=== PATIENT | male | born 1955 | race Caucasian/White ===

== ENCOUNTER → 2017-10-24 | Outpatient (CLI) | payer BC ==
--- NOTE | 2017-10-25 08:16 | ECHOF ---
Referral Reason:Palpitations R00.2,I34.1 Mitral Valve Prolapse MEASUREMENTS -------- HEIGHT: 172.7 cm WEIGHT: 127.5 kg BP: 170/73 RVIDd: 3.7 cm (< 3.3) IVSd: 1.2 cm (0.6 - 1.1) LVIDd: 4.8 cm (3.9 - 5.3) LVPWd: 1.2 cm (0.6 - 1.1) IVSs: 1.6 cm LVIDs: 3.1 cm LVPWs: 1.6 cm LAESV Index (A-L): 31.59 ml/m Ao Diam: 3.0 cm (2.0 - 3.7) AV Cusp: 1.6 cm (1.5 - 2.6) LA Diam: 4.6 cm (2.7 - 3.8) MV EXCURSION: 15.228 mm (> 18.000) MV EF SLOPE: 100 mm/s (70 - 150) EPSS: 0.5 cm MV E Du: 0.91 m/s MV DecT: 339 ms MV A Du: 1.02 m/s MV E/A Ratio: 0.90 AV maxP.47 mmHg AV meanP.44 mmHg RAP: 5.00 mmHg RVSP: 34.50 mmHg FINDINGS -------- Sinus rhythm. This was a technically adequate study. The left ventricular size is normal. There is mild concentric left ventricular hypertrophy. Overa ll left ventricular systolic function is normal with, an EF between 55 - 60 %. The right ventricle is moderately enlarged. LA is midly dilated 29-33ml/m2. RA appears enlarged. Aortic valve is trileaflet and is mildly thickened. There is no evidence of aortic regurgitation. There is mild aortic stenosis present. Peak/mean gradient across the Aortic Valve is 15.47mmHg / 9 .44mmHg. The mitral valve leaflets are mildly thickened. There is trace to mild mitral regurgitation. Trace tricuspid regurgitation present. There is borderline pulmonary hypertension. The right vent ricular systolic pressure, as measured by Doppler, is 34.50mmHg. Trace/mild (physiologic) pulmonic regurgitation. The aortic root size is normal. Normal inferior vena cava with normal inspiratory collapse consistent with estimated right atrial pre ssure of 5 mmHg. There is no pericardial effusion. CONCLUSIONS -------- 1. Sinus rhythm. 2. This was a technically adequate study. 3. The left ventricular size is normal. 4. There is mild concentric left ventricular hypertrophy. 5. Overall left ventricular systolic function is normal with, an EF between 55 - 60 %. 6. The right ventricle is moderately enlarged. 7. LA is midly dilated 29-33ml/m2. 8. RA appears enlarged. 9. Aortic valve is trileaflet and is mildly thickened. 10. There is mild aortic stenosis present. 11. Peak/mean gradient across the Aortic Valve is 15.47mmHg / 9.44mmHg. 12. The mitral valve leaflets are mildly thickened. 13. There is trace to mild mitral regurgitation. 14. Trace tricuspid regurgitation present. 15. There is borderline pulmonary hypertension. 16. The right ventricular systolic pressure, as measured by Doppler, is 34.50mmHg. 17. Trace/mild (physiologic) pulmonic regurgitation. 18. The aortic root size is normal. 19. There is no pericardial effusion. CORPORATE RECEPTIONIST: Yrn Magana RDCS
== END | disposition home or self-care (01) ==
LOC: RADECHMAIN 14:32
PROVIDERS: ATTEND Internal Medicine
DX: I34.0 Nonrheumatic mitral (valve) insufficiency (principal); I35.0 Nonrheumatic aortic (valve) stenosis; I27.20 Pulmonary hypertension, unspecified; I35.8 Other nonrheumatic aortic valve disorders
CPT/HCPCS: 93306

== ENCOUNTER 2020-05-12 17:00 | Inpatient (IN) | payer MEDICARE, BC ==
--- NOTE | 2020-05-12 17:58 | ED ---
Arrhythmia/Palpitations HPI - General Chief Complaint: Arrhythmia/Palpitations Stated Complaint: A Fib Time Seen by Provider: 05/12/20 17:50 Source: patient, RN notes reviewed Mode of arrival: ambulatory Limitations: no limitations - History of Present Illness Initial Comments: This is a 64-year-old male with no prior history of heart disease and mitral valve prolapsechild who believes he has had episodes ofA. fib over the past several years ago or past 2 days had increased episodes of irregular heartbeat some lightheadedness with the symptoms lasting 10-15 seconds each no chest pain shortness breath or other symptoms. MD Complaint: rapid heart beat, palpitations, irregular heart beat - Related Data Home Medications Medication Instructions Recorded Confirmed Aspirin EC [Ecotrin Low Dose] 81 mg PO BID 05/12/20 05/12/20 Atorvastatin [Lipitor] 20 mg PO DAILY 05/12/20 05/12/20 Fish Oil/Dha/Epa [Fish Oil 1,200 2 cap PO BID 05/12/20 05/12/20 mg Fish Oil] Vitamin D3(Unknown Dose) 1 tab PO DAILY 05/12/20 05/12/20 Allergies Allergy/AdvReac Type Severity Reaction Status Date / Time No Known Allergies Allergy Verified 05/12/20 20:05 Review of Systems ROS Statement: Those systems with pertinent positive or pertinent negative responses have been documented in the HPI. ROS Other: All systems not noted in ROS Statement are negative. Past Medical History Past Medical History: Diabetes Mellitus, Hyperlipidemia History of Any Multi-Drug Resistant Organisms: None Reported Past Surgical History: Bariatric Surgery, Cholecystectomy Past Psychological History: No Psychological Hx Reported Smoking Status: Current every day smoker Past Alcohol Use History: Rare Past Drug Use History: None Reported General Exam - General Exam Comments Initial Comments: is a well-developed well-nourished awake alert oriented 3 male Limitations: no limitations General appearance: alert, in no apparent distress Head exam: Present: atraumatic, normocephalic, normal inspection Eye exam: Present: normal appearance, PERRL, EOMI. Absent: scleral icterus, conjunctival injection, periorbital swelling ENT exam: Present: normal exam, mucous membranes moist Neck exam: Present: normal inspection, full ROM, other (no stridor JVD or bruits). Absent: tenderness, meningismus, lymphadenopathy Respiratory exam: Present: normal lung sounds bilaterally. Absent: respiratory distress, wheezes, rales, rhonchi, stridor Cardiovascular Exam: Present: regular rate, normal rhythm, normal heart sounds. Absent: systolic murmur, diastolic murmur, rubs, gallop, clicks GI/Abdominal exam: Present: soft, normal bowel sounds. Absent: distended, tenderness, guarding, rebound, rigid Extremities exam: Present: normal inspection, full ROM, normal capillary refill. Absent: tenderness, pedal edema, joint swelling, calf tenderness Back exam: Present: normal inspection Neurological exam: Present: alert, oriented X3, CN II-XII intact Psychiatric exam: Present: normal affect, normal mood Skin exam: Present: warm, dry, intact, normal color. 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 He initially didn't want to go home but had agreed to get a repeat troponin. Repeat troponin is mildly elevated above the initial one. He is now agreed to stay he will be admitted with cardiology consultation. He still is asymptomatic with respect to chest pain occasional PACs noted. Case is discussed with Dr. Schmid EKG Findings - EKG Results: EKG: interpreted by ANTWAN, sinus rhythm (Sinus rhythm with PACs rate 80. Interval 190 QRS duration 108 QT since QTC 370/435 and complete right bundle- branch block pattern) Medical Decision Making - Lab Data Result diagrams: 05/12/20 18:21 05/12/20 18:21 Lab Results 05/12/20 05/12/20 05/12/20 Range/Units 18:21 18:21 18:21 WBC 8.0 (3.8-10.6) k/uL RBC 5.50 (4.30-5.90) m/uL Hgb 16.2 (13.0-17.5) gm/dL Hct 48.7 (39.0-53.0) % MCV 88.6 (80.0-100.0) fL MCH 29.5 (25.0-35.0) pg MCHC 33.3 (31.0-37.0) g/dL RDW 12.8 (11.5-15.5) % Plt Count 184 (150-450) k/uL Neutrophils % 60 % Lymphocytes % 28 % Monocytes % 7 % Eosinophils % 2 % Basophils % 1 % Neutrophils # 4.8 (1.3-7.7) k/uL Lymphocytes # 2.3 (1.0-4.8) k/uL Monocytes # 0.5 (0-1.0) k/uL Eosinophils # 0.2 (0-0.7) k/uL Basophils # 0.1 (0-0.2) k/uL PT 9.4 (9.0-12.0) sec INR 0.9 (<1.2) APTT 22.0 (22.0-30.0) sec Sodium 135 L (137-145) mmol/L Potassium 5.3 H (3.5-5.1) mmol/L Chloride 102 (98-107) mmol/L Carbon Dioxide 25 (22-30) mmol/L Anion Gap 8 mmol/L BUN 15 (9-20) mg/dL Creatinine 0.68 (0.66-1.25) mg/dL Est GFR (CKD-EPI)AfAm >90 (>60 ml/min/1.73 sqM) Est GFR (CKD-EPI)NonAf >90 (>60 ml/min/1.73 sqM) Glucose 350 H (74-99) mg/dL Calcium 9.7 (8.4-10.2) mg/dL Magnesium 1.8 (1.6-2.3) mg/dL Total Bilirubin 1.2 (0.2-1.3) mg/dL AST 40 (17-59) U/L ALT 26 (4-49) U/L Alkaline Phosphatase 70 (38-126) U/L Creatine Kinase 92 (55-170) U/L Troponin I (0.000-0.034) ng/mL Total Protein 7.6 (6.3-8.2) g/dL Albumin 4.4 (3.5-5.0) g/dL TSH 3.010 (0.465-4.680) mIU/L 05/12/20 05/12/20 Range/Units 18:21 21:04 WBC (3.8-10.6) k/uL RBC (4.30-5.90) m/uL Hgb (13.0-17.5) gm/dL Hct (39.0-53.0) % MCV (80.0-100.0) fL MCH (25.0-35.0) pg MCHC (31.0-37.0) g/dL RDW (11.5-15.5) % Plt Count (150-450) k/uL Neutrophils % % Lymphocytes % % Monocytes % % Eosinophils % % Basophils % % Neutrophils # (1.3-7.7) k/uL Lymphocytes # (1.0-4.8) k/uL Monocytes # (0-1.0) k/uL Eosinophils # (0-0.7) k/uL Basophils # (0-0.2) k/uL PT (9.0-12.0) sec INR (<1.2) APTT (22.0-30.0) sec Sodium (137-145) mmol/L Potassium (3.5-5.1) mmol/L Chloride (98-107) mmol/L Carbon Dioxide (22-30) mmol/L Anion Gap mmol/L BUN (9-20) mg/dL Creatinine (0.66-1.25) mg/dL Est GFR (CKD-EPI)AfAm (>60 ml/min/1.73 sqM) Est GFR (CKD-EPI)NonAf (>60 ml/min/1.73 sqM) Glucose (74-99) mg/dL Calcium (8.4-10.2) mg/dL Magnesium (1.6-2.3) mg/dL Total Bilirubin (0.2-1.3) mg/dL AST (17-59) U/L ALT (4-49) U/L Alkaline Phosphatase (38-126) U/L Creatine Kinase (55-170) U/L Troponin I 0.041 H* 0.047 H* (0.000-0.034) ng/mL Total Protein (6.3-8.2) g/dL Albumin (3.5-5.0) g/dL TSH (0.465-4.680) mIU/L Disposition Clinical Impression: PAC (premature atrial contraction), Elevated troponin, Hyperglycemia Disposition: ADMITTED IP TO THIS HOSP Condition: Stable Referrals: Nonstaff,Physician [REFERRING] - 1-2 days
[2020-05-12 18:47] LABS: Basophils # (A) 0.1 k/uL (0-0.2); Basophils % (A) 1 %; Eosinophils # (A) 0.2 k/uL (0-0.7); Eosinophils % (A) 2 %; HCT 48.7 % (39.0-53.0); HGB 16.2 gm/dL (13.0-17.5); Lymphocytes # (A) 2.3 k/uL (1.0-4.8); Lymphocytes % (A) 28 %; MCH 29.5 pg (25.0-35.0); MCHC 33.3 g/dL (31.0-37.0); MCV 88.6 fL (80.0-100.0); Mean Platelet Volume 7.3; Monocytes # (A) 0.5 k/uL (0-1.0); Monocytes % (A) 7 %; Neutrophils # (A) 4.8 k/uL (1.3-7.7); Neutrophils % (A) 60 %; Platelet Count 184 k/uL (150-450); RDW 12.8 % (11.5-15.5)
--- NOTE | 2020-05-12 18:54 | XR ---
EXAMINATION TYPE: XR chest 2V DATE OF EXAM: 05/12/2020 COMPARISON: NONE HISTORY: Atrial fibrillation TECHNIQUE: FINDINGS: Heart and mediastinum are within normal limits. Lungs are clear. Costophrenic angles are cl ear. There are chest leads. Bony thorax is intact. IMPRESSION: No active cardiopulmonary disease. Normal heart.
[2020-05-12 18:56] LABS: ALT 26 U/L (4-49); AST 40 U/L (17-59); African American GFR (CKD) >90 (>60 ml/min/1.73 sqM); Albumin 4.4 g/dL (3.5-5.0); Alkaline Phosphatase 70 U/L (38-126); Anion Gap 8 mmol/L; Blood Urea Nitrogen 15 mg/dL (9-20); Calcium 9.7 mg/dL (8.4-10.2); Carbon Dioxide 25 mmol/L (22-30); Chloride 102 mmol/L (98-107); Creatine Kinase 92 U/L (55-170); Glucose 350 mg/dL (74-99); Magnesium 1.8 mg/dL (1.6-2.3); Non-African American GFR(CKD) >90 (>60 ml/min/1.73 sqM); Sodium 135 mmol/L (137-145); Total Bilirubin 1.2 mg/dL (0.2-1.3); Total Protein 7.6 g/dL (6.3-8.2)
[2020-05-12 18:57] LABS: Potassium 5.3 mmol/L (3.5-5.1)
[2020-05-12 19:09] LABS: INR 0.9 (<1.2); Prothrombin Time 9.4 sec (9.0-12.0)
[2020-05-12] MEDS ORDERED: HEPARIN SODIUM,PORCINE 5,000 UNIT/ML 1 ML VIAL IV ONE (22:37)
[2020-05-12] MEDS ORDERED: NITROGLYCERIN SL TABS 0.4 MG TAB SUBLINGUAL PRN (22:37)
[2020-05-12] MEDS ORDERED: HEPARIN SOD,PORK IN 0.45% NACL 25,000 UNIT in 0.45% NACL 1 250ML.BAG IV SCH (22:45)
[2020-05-13 00:03] LABS: Glucose,Whole Blood 249 mg/dL (75-99)
[2020-05-13] MEDS ORDERED: INSULIN ASPART (NovoLOG) 100 UNIT/ML VIAL SQ ONE (00:29)
--- NOTE | 2020-05-13 01:14 | P.HPIM ---
History of Present Illness H&P Date: 05/13/20 Patient is a 64-year-old male with a PMH of type II DM, mitral valve prolapse, and A. fib who presented to the emergency room with complaints of palpitations. The patient notes that he was initially diagnosed with mitral valve prolapse in his teenage years. The patient notes that he saw a pattern illustrator many years ago and was started on aspirin. The patient notes that he has been having palpitati ons for several years, and normally does Valsalva which aborts the episodes. He usually had no symptoms with the palpitations. Over the past 2 days however the patient notes that his palpitations were persistent and he also had associated dizziness and felt as though he was going to faint. Denied chest discomfort, shortness of breath, nausea, vomiting, or diaphoresis. Also denied lower extremity pain, lower extremity swelling cough, fever, chills, abdominal pain. EKG in the emergency room revealed sinus rhythm with APCs at 80 bpm with an incomplete right bundle ivan block. Chest x-ray was unremarkable. Laboratory evaluation revealed a troponin of 0.041 with d-dimer 4.07. Review of Systems Pertinent positives and negatives as discussed in HPI, a complete review of systems was performed and all other systems are negative. Past Medical History Past Medical History: Diabetes Mellitus, Hyperlipidemia History of Any Multi-Drug Resistant Organisms: None Reported Past Surgical History: Bariatric Surgery, Cholecystectomy Past Anesthesia/Blood Transfusion Reactions: No Reported Reaction Past Psychological History: No Psychological Hx Reported Smoking Status: Current every day smoker Past Alcohol Use History: Rare Past Drug Use History: None Reported Additional Drug Use History / Comment(s): pt states he smokes cigars - Past Family History Father Family Medical History: AICD/Pacemaker, Diabetes Mellitus Mother Additional Family Medical History / Comment(s): at age 67 from systemic cancer Medications and Allergies Home Medications Medication Instructions Recorded Confirmed Type Aspirin EC [Ecotrin Low Dose] 81 mg PO BID 05/12/20 05/12/20 History Atorvastatin [Lipitor] 20 mg PO DAILY 05/12/20 05/12/20 History Fish Oil/Dha/Epa [Fish Oil 1,200 2 cap PO BID 05/12/20 05/12/20 History mg Fish Oil] Vitamin D3(Unknown Dose) 1 tab PO DAILY 05/12/20 05/12/20 History Allergies Allergy/AdvReac Type Severity Reaction Status Date / Time No Known Allergies Allergy Verified 05/12/20 20:05 Physical Exam Vitals: Vital Signs Temp Pulse Pulse Resp BP BP Pulse Ox 05/13/20 00:56 67 16 05/13/20 00:55 98.5 F 67 16 140/88 96 05/12/20 23:01 66 18 133/78 96 05/12/20 19:08 76 18 123/78 96 05/12/20 18:18 90 05/12/20 17:14 98.8 F 69 18 168/92 98 Intake and Output 05/12/20 05/12/20 05/13/20 14:59 22:59 06:59 Other: Voiding Method Toilet Weight 120.202 kg 112.037 kg General: non toxic, no distress, appears at stated age, obese Derm: no unusual rashes/lesions no unusual ecchymoses, warm, dry Head: atraumatic, normocephalic, symmetric Eyes: EOMI, no lid lag, anicteric sclera, pupils equal round reactive to light ENT: Nose and ears atraumatic, no thrush, no pharyngeal erythema Neck: No thyromegaly, no cervical lymphadenopathy, trachea midline, supple Mouth: no lip lesion, mucus membranes moist Cardiovascular: S1S2 reg, no murmur, positive posterior tibial pulse bilateral, no edema, capillary refill less than 2 seconds Lungs: CTA bilateral, no rhonchi, no rales , no accessory muscle use Abdominal: soft, nontender to palpation, no guarding, no appreciable organo megaly, normal bowel sounds Ext: no gross muscle atrophy, muscle strength 5 out of 5 in all 4 extremities grossly, no contractures, Neuro: CN II-XI grossly intact, light touch intact all 4 extremities, finger to nose within normal limits, Psych: Alert, oriented, appropriate affect Results CBC & Chem 7: 05/12/20 18:21 05/12/20 18:21 Labs: Abnormal Lab Results - Last 24 Hours (Table) 05/12/20 05/12/20 05/12/20 Range/Units 18:21 18:21 21:04 D-Dimer (<0.60) mg/L FEU Sodium 135 L (137-145) mmol/L Potassium 5.3 H (3.5-5.1) mmol/L Glucose 350 H (74-99) mg/dL POC Glucose (mg/dL) (75-99) mg/dL Troponin I 0.041 H* 0.047 H* (0.000-0.034) ng/mL 05/12/20 05/13/20 Range/Units 23:59 00:02 D-Dimer 4.07 H (<0.60) mg/L FEU Sodium (137-145) mmol/L Potassium (3.5-5.1) mmol/L Glucose (74-99) mg/dL POC Glucose (mg/dL) 249 H (75-99) mg/dL Troponin I (0.000-0.034) ng/mL Thrombosis Risk Factor Assmnt - Choose All That Apply Any of the Below Risk Factors Present?: Yes Each Factor Represents 1 point: Obesity (BMI >25) Other Risk Factors: Yes Each Risk Factor Represents 2 Points: Age 61-74 years Thrombosis Risk Factor Assessment Total Risk Factor Score: 3 Thrombosis Risk Factor Assessment Level: Moderate Risk Assessment and Plan Plan: Paroxysmal A. fib, not on anticoagulation in setting of MVP -Patient was noted to be in A. fib as per the ED staff after he was initially placed on the monitor, though it was not captured on EKG -Continue with heparin infusion -Cardiac monitoring -Cardiology consult -Echocardiogram Elevated troponin, likely demand ischemia secondary to A. fib with RVR -Continue to trend -Cardiology consulted Elevated D-dimer -Obtain CT Angio chest Type II DM with hyperglycemia -Insulin sliding scale blood glucose monitoring -Levemir 10 units daily at bedtime -Check A1c DVT prophylaxis -Heparin infusion The patient is admitted with an anticipated less than 2 midnight stay for evaluation of palpitations, near syncope CODE STATUS: Full Code Discussed with: Patient Anticipated discharge date: in am Anticipated discharge place: home A total of 40 minutes was spent on the care of this complex patient more than 50% of the time was spent in counseling and care coordination.
[2020-05-13] MEDS: INSULIN DETEMIR (LEVEMIR) 100 UNIT/ML SYR SQ SCH ×2 (01:36→20:50)
--- NOTE | 2020-05-13 02:47 | CT ---
EXAM: CT Angiography Chest With Intravenous Contrast CLINICAL HISTORY: Reason for study: Dizziness, palpitations, near syncope, elev d dime TECHNIQUE: Axial computed tomographic angiography images of the chest with intravenous contrast. CTDI is 31.984 mGy and DLP is 987.2 mGy-cm. This CT exam was performed using one or more of the following dose reduction techniques: automated exposure control, adjustment of the mA and/or kV according to patient size, and/or use of iterative reconstruction technique. MIP reconstructed images were created and reviewed. COMPARISON: None available FINDINGS: Pulmonary arteries: Large pulmonary embolic burden with pulmonary emboli in the bilateral main pulmonary arteries. Left-sided pulmonary emboli extend into the left upper and left lower lobe pulmonary arteries and anterior left lower lobe segmental pulmonary artery. Right-sided pulmonary emboli in the right main pulmonary artery extending into the right lower lobe and anterior and lateral segmental pulmonary arteries as well as the right middle lobe and right upper lobe pulmonary arteries. Enlarged main pulmonary artery measuring up to 3.4 cm in diameter. Aorta: No acute findings. No thoracic aortic aneurysm. No aortic dissection. Lungs: No mass. No consolidation. No pulmonary infarct. Pleural space: Unremarkable. No significant effusion. No pneumothorax. Heart: No cardiomegaly. No significant pericardial effusion. Suggestion of right heart strain with RV/LV ratio measuring approximately 1.4. Bones/joints: No acute fracture. No dislocation. Soft tissues: Unremarkable. Lymph nodes: Unremarkable. No enlarged lymph nodes. Upper abdomen: Lap band in place with reservoir in the left periumbilical anterior abdominal wall. IMPRESSION: 1. Large volume pulmonary embolism burden in the bilateral main pulmonary arteries extending into the right upper middle and lower and left upper and lower pulmonary arteries and multiple segmental branches as described above. 2. Enlarged main pulmonary artery measuring up to 3.4 cm in diameter. Suggestion of right heart strain with RV/LV ratio measuring approximately 1.4. No associated pulmonary infarcts. <MYCVCSECTION> Communications: 05/13/20 02:58 Call Doctor Regarding Pulmonary Embolism, called Dr. Schmid on 05/13 02:58 (-04:00)
[2020-05-13] MEDS ORDERED: HEPARIN SODIUM,PORCINE 5,000 UNIT/ML 1 ML VIAL IV PRN (03:06)
[2020-05-13] MEDS ORDERED: HEPARIN SOD,PORK IN 0.45% NACL 25,000 UNIT in 0.45% NACL 1 250ML.BAG IV SCH (03:15)
[2020-05-13 04:32] LABS: Prothrombin Time 10.1 sec (9.0-12.0)
[2020-05-13 04:33] LABS: Partial Thromboplastin Time 35.3 sec (22.0-30.0)
[2020-05-13 05:48] LABS: Cholesterol 171 mg/dL (<200); HDL Cholesterol 35 mg/dL (40-60); LDL Cholesterol,Calculated 86 mg/dL (0-99); Triglycerides 251 mg/dL (<150)
[2020-05-13 06:06] LABS: Glucose,Whole Blood 176 mg/dL (75-99)
[2020-05-13] MEDS: INSULIN ASPART (NovoLOG) 100 UNIT/ML VIAL SQ SCH ×4 (06:28→20:51)
[2020-05-13] MEDS ORDERED: ASPIRIN 325 MG TAB PO SCH (09:00)
[2020-05-13] MEDS ORDERED: NON FORMULARY DRUG (Vitamin D3(Unknown Dose) 1 TAB) PO SCH (09:00)
[2020-05-13] MEDS ORDERED: NON FORMULARY DRUG (Fish Oil/Dha/Epa [Fish Oil 1,200 Mg Fish Oil] 1 EACH Capsule) PO SCH (09:00)
--- NOTE | 2020-05-13 09:37 | US ---
EXAMINATION TYPE: US venous doppler duplex LE DATE OF EXAM: 05/13/2020 7:42 AM COMPARISON: NONE CLINICAL HISTORY: jarad pe. Bilateral PE. On IV heparin. No leg pain or swelling. SIDE PERFORMED: Bilateral TECHNIQUE: The lower extremity deep venous system is examined utilizing real time linear array sonog deshaun with graded compression, doppler sonography and color-flow sonography. VESSELS IMAGED: External Iliac Vein (EIV) Common Femoral Vein Deep Femoral Vein Greater Saphenous Vein * Femoral Vein Popliteal Vein Small Saphenous Vein * Proximal Calf Veins (* superficial vessels) Right Leg: Negative for deep venous thrombosis. There is normal flow, compressibility, and vascular waveforms. Left Leg: POSITIVE for deep venous thrombosis in proximal Popliteal vein to calf veins. IMPRESSION: 1. Deep venous thrombosis of the left lower extremity of the popliteal and calf veins. 2. No deep venous thrombosis of the right lower extremity. A Red level critical message alert has been initiated for Kaylie Schmid MD via the [employer] on 05/13/2020 9:32 AM. This message alert has been sent to Kaylie Schmid MD via the preferences provided by the clinician for the receipt of Radiology Critical Findings. Message ID [id number]. Dr. Veronique Chang discussed findings with Faiza Abraham RN, via the phone on 05/13/2020 at 9:33 AM, and results were acknowledged.
[2020-05-13] MEDS: ATORVASTATIN 20 MG TAB PO SCH (10:08)
--- NOTE | 2020-05-13 10:55 | ECHOF ---
Referral Reason:elevated troponin MEASUREMENTS -------- HEIGHT: 172.7 cm WEIGHT: 112.0 kg BP: 151/72 RVIDd: 3.7 cm (< 3.3) IVSd: 1.3 cm (0.6 - 1.1) LVIDd: 4.2 cm (3.9 - 5.3) LVPWd: 1.3 cm (0.6 - 1.1) IVSs: 1.6 cm LVIDs: 3.3 cm LVPWs: 1.5 cm LA Diam: 4.1 cm (2.7 - 3.8) LAESV Index (A-L): 28.57 ml/m Ao Diam: 2.9 cm (2.0 - 3.7) AV Cusp: 1.7 cm (1.5 - 2.6) LA Diam: 4.5 cm (2.7 - 3.8) MV EXCURSION: 16.790 mm (> 18.000) MV EF SLOPE: 76 mm/s (70 - 150) EPSS: 0.4 cm MV E Du: 0.63 m/s MV DecT: 129 ms MV A Du: 0.80 m/s MV E/A Ratio: 0.79 RAP: 5.00 mmHg RVSP: 36.45 mmHg TAPSE: 27.20 mm FINDINGS -------- Sinus rhythm. This was a technically good study. The left ventricular size is normal. There is mild concentric left ventricular hypertrophy. Overa ll left ventricular systolic function is low-normal with, an EF between 50 - 55 %. The right ventricle is normal in size. The left atrium is mildly dilated. LA is midly dilated 29-33ml/m2. The right atrial size is normal. The aortic valve is trileaflet, and appears structurally normal. No aortic stenosis or regurgitation. Mild mitral regurgitation is present. Mild tricuspid regurgitation present. There is mild pulmonary hypertension. There is no pulmonic regurgitation present. The aortic root size is normal. There is no pericardial effusion. CONCLUSIONS -------- 1. The left ventricular size is normal. 2. There is mild concentric left ventricular hypertrophy. 3. Overall left ventricular systolic function is low-normal with, an EF between 50 - 55 %. 4. The right ventricle is normal in size. 5. The left atrium is mildly dilated. 6. LA is midly dilated 29-33ml/m2. 7. The right atrial size is normal. 8. Mild mitral regurgitation is present. 9. Mild tricuspid regurgitation present. 10. There is mild pulmonary hypertension. 11. There is no pulmonic regurgitation present. 12. The aortic root size is normal. 13. There is no pericardial effusion. INTAKE MANAGER: Angie Finn RDCS
--- NOTE | 2020-05-13 11:05 | P.CRDCN ---
History of Present Illness History of present illness: HISTORY OF PRESENTING ILLNESS This is a pleasant 64-year-old male past medical history significant for dyslipidemia, diabetes mellitus and chronic nicotine dependence. He denies prior history of coronary artery disease and does not follow with a shake maker for any reason. We have been asked to see in consultation for palpitations. He denies any recent travel. No recent injury or sugery. He initially denied to us that he has no family history of PE/DVT however latera he told another provider that his brother had a PE and is decreased. He states for the previous few weeks he's been experiencing intermittent palpitations, dizziness and shortness of breath. 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 On arrival to the hospital an EKG was obtained revealing sinus rhythm with PACs. Telemetry tracings reveal persistent sinus mechanism with episodes of bradycardia noted while sleeping. No significant arrhythmias. D-dimer was elevated prompting a CT angios the chest revealing a large volume pulmonary embolism burden in the bilateral main pulmonary arteries extending into the right upper middle and lower and left upper and lower pulmonary arteries and multiple segmental branches, enlarged main pulmonary artery measuring up to 3.4 cm in diameter, evidence of right heart strain with RV LV ratio measuring 1.4. He was initiated on IV heparin infusion. Bilateral lower extremity venous Doppler also positive for DVT and the proximal popliteal vein of the left leg. Right is negative for DVT. Laboratory data reviewed, CBC unremarkable, d-dimer 4.07, sodium 135, potassium 5.3, creatinine 0.68, magnesium 1.8, troponin 0.041, 0.047 and 0.040, LDL 86 and TSH 3.01. Current daily cardiac medications include aspirin 81 mg twice a day and atorvastatin 20 mg daily. REVIEW OF SYSTEMS At the time of my exam: CONSTITUTIONAL: Denies fever or chills. CARDIOVASCULAR: Denies chest pain, shortness of breath, orthopnea, PND or palpitations. RESPIRATORY: Denies cough. GASTROINTESTINAL: Denies abdominal pain, diarrhea, constipation, nausea or vomiting. MUSCULOSKELETAL: Denies myalgias. NEUROLOGIC: Denies numbness, tingling or weakness. ENDOCRINE: Denies fatigue, weight change, polydipsia or polyurina. GENITOURINARY: Denies burning, hematuria or urgency with micturation. HEMATOLOGIC: Denies history of anemia or bleeding. PHYSICAL EXAMINATION Blood pressure 164/77 heart rate 73 afebrile and maintaining oxygen saturation on room air. CONSTITUTIONAL: No apparent distress. HEENT: Head is normocephalic. Pupils are equal, round. Sclerae anicteric. Mucous membranes of the mouth are moist. No JVD. No carotid bruit. CHEST EXAMINATION: Lungs are clear to auscultation. No chest wall tenderness is noted on palpation or with deep breathing. HEART EXAMINATION: Regular rate and rhythm. S1, S2 heard. No murmurs, gallops or rub. ABDOMEN: Soft, nontender. Positive bowel sounds. EXTREMITIES: 2+ peripheral pulses, no lower extremity edema and no calf tenderness. NEUROLOGIC EXAMINATION: Patient is awake, alert and oriented x3. ASSESSMENT Pulmonary embolism Troponin leak secondary to pulmonary embolism DVT Dyslipidemia Chronic nicotine dependence PLAN Recommend consultation with vascular surgery for EKOS consideration. Obtain STAT 2D echocardiogram to assess for RV stratin as noted on CTA. No documented a-fib. Consider unprovoked PE work-up. Thank you wen for this consultation. Nurse Practitioner note has been reviewed, I agree with a documented findings and plan of care. Patient was seen and examined. Past Medical History Past Medical History: Diabetes Mellitus, Hyperlipidemia History of Any Multi-Drug Resistant Organisms: None Reported Past Surgical History: Bariatric Surgery, Cholecystectomy Past Anesthesia/Blood Transfusion Reactions: No Reported Reaction Past Psychological History: No Psychological Hx Reported Smoking Status: Current every day smoker Past Alcohol Use History: Rare Past Drug Use History: None Reported Additional Drug Use History / Comment(s): pt states he smokes cigars - Past Family History Father Family Medical History: AICD/Pacemaker, Diabetes Mellitus Mother Additional Family Medical History / Comment(s): at age 67 from systemic cancer Medications and Allergies Home Medications Medication Instructions Recorded Confirmed Type Aspirin EC [Ecotrin Low Dose] 81 mg PO BID 05/12/20 05/12/20 History Atorvastatin [Lipitor] 20 mg PO DAILY 05/12/20 05/12/20 History Fish Oil/Dha/Epa [Fish Oil 1,200 2 cap PO BID 05/12/20 05/12/20 History mg Fish Oil] Vitamin D3(Unknown Dose) 1 tab PO DAILY 05/12/20 05/12/20 History Allergies Allergy/AdvReac Type Severity Reaction Status Date / Time No Known Allergies Allergy Verified 05/12/20 20:05 Physical Exam Vitals: Vital Signs Temp Pulse Pulse Resp BP BP Pulse Ox 05/13/20 09:45 98.1 F 73 18 164/77 95 05/13/20 04:00 97.7 F 63 16 151/72 95 05/13/20 00:56 67 16 05/13/20 00:55 98.5 F 67 16 140/88 96 05/12/20 23:01 66 18 133/78 96 05/12/20 19:08 76 18 123/78 96 05/12/20 18:18 90 05/12/20 17:14 98.8 F 69 18 168/92 98 Intake and Output 05/12/20 05/13/20 05/13/20 22:59 06:59 14:59 Intake Total 30.587 Output Total 200 Balance -169.413 Intake: Intake, IV Titration 30.587 Amount Heparin Sod,Pork in 0.45% 30.587 NaCl 25,000 unit In 0.45 % NaCl 1 250ml.bag @ 18 UNITS/KG/HR 20.167 mls/hr IV .[id number] [facility] Rx#: [id number] Output: Urine 200 Other: Voiding Method Toilet Weight 120.202 kg 112.2 kg Results 05/12/20 18:21 05/12/20 18:21 Cardiac Enzymes 05/12/20 05/12/20 05/12/20 Range/Units 18:21 18:21 21:04 AST 40 (17-59) U/L Troponin I 0.041 H* 0.047 H* (0.000-0.034) ng/mL 05/12/20 Range/Units 23:59 AST (17-59) U/L Troponin I 0.040 H* (0.000-0.034) ng/mL Coagulation 05/12/20 05/13/20 Range/Units 18:21 03:56 PT 9.4 10.1 (9.0-12.0) sec APTT 22.0 35.3 H (22.0-30.0) sec Lipids 05/12/20 Range/Units 18:21 Triglycerides 251 H (<150) mg/dL Cholesterol 171 (<200) mg/dL HDL Cholesterol 35 L (40-60) mg/dL CBC 10/28/20 Range/Units 18:21 WBC 8.0 (3.8-10.6) k/uL RBC 5.50 (4.30-5.90) m/uL Hgb 16.2 (13.0-17.5) gm/dL Hct 48.7 (39.0-53.0) % Plt Count 184 (150-450) k/uL Comprehensive Metabolic Panel 05/12/20 Range/Units 18:21 Sodium 135 L (137-145) mmol/L Potassium 5.3 H (3.5-5.1) mmol/L Chloride 102 (98-107) mmol/L Carbon Dioxide 25 (22-30) mmol/L BUN 15 (9-20) mg/dL Creatinine 0.68 (0.66-1.25) mg/dL Glucose 350 H (74-99) mg/dL Calcium 9.7 (8.4-10.2) mg/dL AST 40 (17-59) U/L ALT 26 (4-49) U/L Alkaline Phosphatase 70 (38-126) U/L Total Protein 7.6 (6.3-8.2) g/dL Albumin 4.4 (3.5-5.0) g/dL Current Medications Generic Name Dose Route Start Last Admin Trade Name Freq PRN Reason Stop Dose Admin Apixaban 10 mg 05/13/20 11:00 Apixaban 5 Mg Tab PO 05/19/20 10:48 BID CHUCKY Aspirin 325 mg 05/13/20 09:00 05/13/20 10:08 Aspirin 325 Mg Tab PO 325 mg DAILY CHUCKY Administration Atorvastatin Calcium 20 mg 05/13/20 09:00 05/13/20 10:08 Atorvastatin 20 Mg Tab PO 20 mg DAILY CHUCKY Administration Insulin Aspart 0 unit 05/13/20 07:30 05/13/20 06:28 Insulin Aspart (Novolog) 100 Unit/Ml Vial SQ 3 unit ACHS CHUCKY Administration Protocol Insulin Detemir 10 unit 05/13/20 01:30 05/13/20 01:36 Insulin Detemir (Levemir) 100 Unit/Ml Syr SQ 10 unit HS CHUCKY Administration Nitroglycerin 0.4 mg 05/12/20 22:37 Nitroglycerin Sl Tabs 0.4 Mg Tab SUBLINGUAL Q5M PRN Chest Pain Intake and Output 05/12/20 05/13/20 05/13/20 22:59 06:59 14:59 Intake Total 30.587 Output Total 200 Balance -169.413 Intake: Intake, IV Titration 30.587 Amount Heparin Sod,Pork in 0.45% 30.587 NaCl 25,000 unit In 0.45 % NaCl 1 250ml.bag @ 18 UNITS/KG/HR 20.167 mls/hr IV .[id number] [facility] Rx#: [id number] Output: Urine 200 Other: Voiding Method Toilet Weight 120.202 kg 112.2 kg 05/12/20 18:21 05/12/20 18:21
[2020-05-13 11:35] LABS: Glucose,Whole Blood 180 mg/dL (75-99)
[2020-05-13] MEDS: APIXABAN 5 MG TAB PO SCH ×2 (12:11→20:50)
--- NOTE | 2020-05-13 12:52 | P.GSCN ---
History of Present Illness Consult date: 05/13/20 Reason for Consult: Pulmonary embolism Requesting physician: Marcia Branch History of present illness: This patient is a pleasant 64-year-old male with a past medical history significant for dyslipidemia, diabetes mellitus, obstructive sleep apnea on CPAP, and nicotine dependence. He came into the emergency department yesterday evening with complaints of irregular heartbeat and shortness of breath. He stated that he felt like this has been going on off and on for several years. We've been asked to see in consultation for pulmonary embolism with questionable right heart strain. He denies any recent travel, injury, or sugery. Denies any previous blood clots or known clotting disorder for himself. His family member is at the bedside and stated that the patient's brother has a history of several blood clots in the past, he in 2005. Patient denies any previous workup by hematology for himself or his brother. He states for the previous few weeks he's been experiencing intermittent palpitations, dizziness and shortness of breath. 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 On arrival to the hospital an EKG was obtained revealing sinus rhythm with PACs. D-dimer was elevated prompting a CT angiogram of the chest revealing a large volume pulmonary embolism burden in the bilateral main pulmonary arteries extending into the right upper middle and lower and left upper and lower pulmonary arteries and multiple segmental branches, enlarged main pulmonary artery measuring up to 3.4 cm in diameter, evidence of right heart strain with RV LV ratio measuring 1.4. He was initiated on IV heparin infusion. Bilateral lower extremity venous Doppler performed which was positive for DVT of proximal popliteal vein of the left leg. Right is negative for DVT. Laboratory data reviewed, CBC unremarkable, d-dimer 4.07, sodium 135, potassium 5.3, creatinine 0.68, magnesium 1.8, troponin 0.041, 0.047 and 0.040, LDL 86 and TSH 3.01. He is currently denying any shortness of breath, chest pain, or difficulty breathing. He states he has not been up ambulating therefore unsure if he has any current dyspnea with exertion. He denies pain in bilateral lower extremities, states he did not notice any swelling or redness in the left lower extremity. Review of Systems A 14 point review of systems was completed all pertinent positives and negatives as stated in the HPI. Past Medical History Past Medical History: Diabetes Mellitus, Hyperlipidemia History of Any Multi-Drug Resistant Organisms: None Reported Past Surgical History: Bariatric Surgery, Cholecystectomy Past Anesthesia/Blood Transfusion Reactions: No Reported Reaction Past Psychological History: No Psychological Hx Reported Smoking Status: Current every day smoker Past Alcohol Use History: Rare Past Drug Use History: None Reported Additional Drug Use History / Comment(s): pt states he smokes cigars - Past Family History Father Family Medical History: AICD/Pacemaker, Diabetes Mellitus Mother Additional Family Medical History / Comment(s): at age 67 from systemic cancer Brother(s) Additional Family Medical History / Comment(s): brother had a DVT Medications and Allergies Home Medications Medication Instructions Recorded Confirmed Type Aspirin EC [Ecotrin Low Dose] 81 mg PO BID 05/12/20 05/12/20 History Atorvastatin [Lipitor] 20 mg PO DAILY 05/12/20 05/12/20 History Fish Oil/Dha/Epa [Fish Oil 1,200 2 cap PO BID 05/12/20 05/12/20 History mg Fish Oil] Vitamin D3(Unknown Dose) 1 tab PO DAILY 05/12/20 05/12/20 History Allergies Allergy/AdvReac Type Severity Reaction Status Date / Time No Known Allergies Allergy Verified 05/12/20 20:05 Surgical - Exam Vital Signs Temp Pulse Resp BP Pulse Ox 98.8 F 69 18 168/92 98 05/12/20 17:14 05/12/20 17:14 05/12/20 17:14 05/12/20 17:14 05/12/20 17:14 General appearance: The patient is alert, oriented, in no acute distress. HET: Head is normocephalic and atraumatic. Neck: Supple without lymphadenopathy. Trachea midline. No carotid bruit bi laterally. Heart: S1 S2. Regular rate and rhythm. Lungs: Clear to auscultation, normal chest wall expansion. Respirations unlabored. Abdomen: Soft, nontender, nondistended with bowel sounds. Extremities: Normal skin color and turgor. No cyanosis, rash, ulceration, clubbing, or edema. Radial and pedal pulses are 2/4 bilaterally. Neurological: No focal deficits. Strength and sensation are grossly intact. Results The angiogram of chest showed large volume pulmonary embolism burden in the bilateral main pulmonary arteries extending into the right upper middle and lower and left upper and lower pulmonary arteries and multiple segmental branches as described above. Enlarged main pulmonary artery measuring up to 3.4 cm in diameter. Suggestion of right heart strain with RV/LV ratio measuring approximately 1.4. No associated pulmonary infarcts. Echocardiogram: Shows the left ventricular size is normal, mild concentric left ventricular hypertrophy, overall left ventricular systolic function is low- normal with an EF between 50 and 55%. The right ventricle is normal in size. Left atrium is mildly dilated. LV is mildly dilated 29-33 mL. The right atrial size is normal. Mild mitral regurgitation is present. Mild tricuspid regurgitation present. Mild pulmonary hypertension. No pulmonic regurgitation present. Aortic root site is normal. There is no pericardial effusion. Venous Doppler bilateral lower extremity: Left leg positive for deep venous thrombosis in the proximal popliteal vein to Veins. Right leg is negative for deep venous thrombosis. - Labs 05/12/20 18:21 05/12/20 18:21 Abnormal Lab Results - Last 24 Hours (Table) 05/12/20 05/12/20 05/12/20 Range/Units 18:21 18:21 18:21 APTT (22.0-30.0) sec D-Dimer (<0.60) mg/L FEU Sodium 135 L (137-145) mmol/L Potassium 5.3 H (3.5-5.1) mmol/L Glucose 350 H (74-99) mg/dL POC Glucose (mg/dL) (75-99) mg/dL Troponin I 0.041 H* (0.000-0.034) ng/mL Triglycerides 251 H (<150) mg/dL HDL Cholesterol 35 L (40-60) mg/dL 05/12/20 05/12/20 05/12/20 Range/Units 21:04 23:59 23:59 APTT (22.0-30.0) sec D-Dimer 4.07 H (<0.60) mg/L FEU Sodium (137-145) mmol/L Potassium (3.5-5.1) mmol/L Glucose (74-99) mg/dL POC Glucose (mg/dL) (75-99) mg/dL Troponin I 0.047 H* 0.040 H* (0.000-0.034) ng/mL Triglycerides (<150) mg/dL HDL Cholesterol (40-60) mg/dL 05/13/20 05/13/20 05/13/20 Range/Units 00:02 03:56 06:04 APTT 35.3 H (22.0-30.0) sec D-Dimer (<0.60) mg/L FEU Sodium (137-145) mmol/L Potassium (3.5-5.1) mmol/L Glucose (74-99) mg/dL POC Glucose (mg/dL) 249 H 176 H (75-99) mg/dL Troponin I (0.000-0.034) ng/mL Triglycerides (<150) mg/dL HDL Cholesterol (40-60) mg/dL Diabetes panel 05/12/20 05/12/20 Range/Units 18:21 18:21 Sodium 135 L (137-145) mmol/L Potassium 5.3 H (3.5-5.1) mmol/L Chloride 102 (98-107) mmol/L Carbon Dioxide 25 (22-30) mmol/L BUN 15 (9-20) mg/dL Creatinine 0.68 (0.66-1.25) mg/dL Glucose 350 H (74-99) mg/dL Calcium 9.7 (8.4-10.2) mg/dL AST 40 (17-59) U/L ALT 26 (4-49) U/L Alkaline Phosphatase 70 (38-126) U/L Total Protein 7.6 (6.3-8.2) g/dL Albumin 4.4 (3.5-5.0) g/dL Triglycerides 251 H (<150) mg/dL HDL Cholesterol 35 L (40-60) mg/dL Thyroid panel 05/12/20 Range/Units 18:21 TSH 3.010 (0.465-4.680) mIU/L Calcium panel 05/12/20 Range/Units 18:21 Calcium 9.7 (8.4-10.2) mg/dL Albumin 4.4 (3.5-5.0) g/dL Pituitary panel 05/12/20 Range/Units 18:21 Sodium 135 L (137-145) mmol/L Potassium 5.3 H (3.5-5.1) mmol/L Chloride 102 (98-107) mmol/L Carbon Dioxide 25 (22-30) mmol/L BUN 15 (9-20) mg/dL Creatinine 0.68 (0.66-1.25) mg/dL Glucose 350 H (74-99) mg/dL Calcium 9.7 (8.4-10.2) mg/dL TSH 3.010 (0.465-4.680) mIU/L Adrenal panel 05/12/20 Range/Units 18:21 Sodium 135 L (137-145) mmol/L Potassium 5.3 H (3.5-5.1) mmol/L Chloride 102 (98-107) mmol/L Carbon Dioxide 25 (22-30) mmol/L BUN 15 (9-20) mg/dL Creatinine 0.68 (0.66-1.25) mg/dL Glucose 350 H (74-99) mg/dL Calcium 9.7 (8.4-10.2) mg/dL Total Bilirubin 1.2 (0.2-1.3) mg/dL AST 40 (17-59) U/L ALT 26 (4-49) U/L Alkaline Phosphatase 70 (38-126) U/L Total Protein 7.6 (6.3-8.2) g/dL Albumin 4.4 (3.5-5.0) g/dL Assessment and Plan Assessment: 1. Pulmonary embolism without evidence of right heart strain per echocardiogram results 2. Deep vein thrombosis of left lower extremity 3. Dyslipidemia 4. Hypertension 5. Obstructive sleep apnea 6. Obesity 7. Nicotine dependence Plan: The patient was seen and examined with Dr. Vila. Dr. Vila reviewed the CT angiogram and echocardiogram, echocardiogram does not show any evidence of right heart strain therefore no indication for EKOS at this time. Recommend consult either inpatient or outpatient for hematology for a family history of blood clots, further workup. Will start on Eliquis 10 mg by mouth twice a day for one week then decrease to 5mg po BID and discontinue heparin drip. From a vascular surgical standpoint patient may be discharged home if cleared by cardiology and medicine team. Thank you for this consultation and allowing us to take part in the plan of care of your patient during his hospital stay. The impression and plan of care has been dictated as directed. Dr. Vila I performed a history and examination of this patient, discussed the same with the dictator. I agree with the dictator's note ,documented as a scribe. Any additional findings or plans will be noted.
--- NOTE | 2020-05-13 14:14 | P.CNPUL ---
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, who developed some difficulties with palpitations and he felt his heart was racing. note that the patient did not have any chest pain. he did not have any pleurisy. he did not have any swelling or pain in the scalp on his lower extremity. the patient typically gets this type of symptoms and according to him he performs valsalva maneuver and the symptoms go away. however, during this time, the symptoms will go away and then recurred and for that was concerning came into the hospital. d-dimer was slightly elevated. he was given a ct angios and that showed bilateral pulmonary embolism and the patient was found to have large volume pulmonary embolism burden and bilateral main pulmonary arteries extending to the right upper lobe and the right lower lobe and the left upper lobe and left lower lobe pulmonary arteries. there was also some enlargement in the main pulmonary artery measuring 2.4 cm in size and there was suggestion of a right ventricular strain pattern with rv/lv ratio measuring around 1.4. no associated pulmonary infarcts. the doppler of the lower extremity showed a positive dvt in the right proximal popliteal vein. the echo of the heart showed a normal rv, moderate pulmonary hypertension, levaquin 2 ejection fraction being in the order of 50-55%. the patient is hemodynamically stable. the patient is currently on room air oxygen with a pulse is a 96% and there was no oxygen desaturation noted. he denies having any palpitation at this point in time. nevertheless, in the emergency department, the patient had a run of atrial fibrillation according to the medical staff. his current ekg showing a sinus rhythm. the patient is currently on iv heparin. he will be transitioned to eliquis 10 mg by mouth twice a day. he has been quite active. no sedentary lifestyle. no 68 recent orthopedic surgeries. no recent surgeries. no trauma. no hormonal intake. he does have his brother had a dvt and he from complications of diabetes mellitus. no other family members with clotting disorders. Review of Systems Constitutional: Reports as per HPI Eyes: denies as per HPI, denies blurred vision, denies bulging eye, denies decreased vision, denies diplopia, denies discharge, denies dry eye, denies irritation, denies itching, denies pain, denies photophobia, denies loss of peripheral vision, denies loss of vision, denies tunnel vision/blind spots Ears: deny: decreased hearing, ear discharge, earache, tinnitus Ears, nose, mouth and throat: Denies headache, Denies sore throat Breasts: absent: as per HPI, gynecomastia Cardiovascular: Reports irregular heart beat, Reports palpitations Respiratory: Reports as per HPI Gastrointestinal: Reports as per HPI Genitourinary: Reports as per HPI Musculoskeletal: Reports as per HPI Musculoskeletal: absent: ankle pain, ankle stiffness, ankle swelling Integumentary: Reports as per HPI Neurological: Reports as per HPI Psychiatric: Reports as per HPI Endocrine: Reports as per HPI Hematologic/Lymphatic: Reports as per HPI Allergic/Immunologic: Reports as per HPI Past Medical History Past Medical History: Diabetes Mellitus, Hyperlipidemia, Supraventricular Tachycardia (SVT) History of Any Multi-Drug Resistant Organisms: None Reported Past Surgical History: Bariatric Surgery, Cholecystectomy Past Anesthesia/Blood Transfusion Reactions: No Reported Reaction Past Psychological History: No Psychological Hx Reported Smoking Status: Current every day smoker Past Alcohol Use History: Rare Past Drug Use History: None Reported Additional Drug Use History / Comment(s): pt states he smokes cigars - Past Family History Father Family Medical History: AICD/Pacemaker, Diabetes Mellitus Mother Additional Family Medical History / Comment(s): at age 67 from systemic cancer Brother(s) Additional Family Medical History / Comment(s): brother had a DVT Medications and Allergies Home Medications Medication Instructions Recorded Confirmed Type Aspirin EC [Ecotrin Low Dose] 81 mg PO BID 05/12/20 05/12/20 History Atorvastatin [Lipitor] 20 mg PO DAILY 05/12/20 05/12/20 History Fish Oil/Dha/Epa [Fish Oil 1,200 2 cap PO BID 05/12/20 05/12/20 History mg Fish Oil] Vitamin D3(Unknown Dose) 1 tab PO DAILY 05/12/20 05/12/20 History Allergies Allergy/AdvReac Type Severity Reaction Status Date / Time No Known Allergies Allergy Verified 05/12/20 20:05 Physical Exam Vitals: Vital Signs Temp Pulse Pulse Resp BP BP Pulse Ox 05/13/20 09:45 98.1 F 73 18 164/77 95 05/13/20 04:00 97.7 F 63 16 151/72 95 05/13/20 00:56 67 16 05/13/20 00:55 98.5 F 67 16 140/88 96 05/12/20 23:01 66 18 133/78 96 05/12/20 19:08 76 18 123/78 96 05/12/20 18:18 90 05/12/20 17:14 98.8 F 69 18 168/92 98 Intake and Output 05/12/20 05/13/20 05/13/20 22:59 06:59 14:59 Intake Total 30.587 Output Total 200 Balance -169.413 Intake: Intake, IV Titration 30.587 Amount Heparin Sod,Pork in 0.45% 30.587 NaCl 25,000 unit In 0.45 % NaCl 1 250ml.bag @ 18 UNITS/KG/HR 20.167 mls/hr IV .[id number] [facility] Rx#: [id number] Output: Urine 200 Other: Voiding Method Toilet Weight 120.202 kg 112.2 kg The patient appeared well nourished and normally developed. Vital signs as documented. Head exam is unremarkable. No scleral icterus or corneal arcus noted. Neck is without jugular venous distension, thyromegaly, or carotid bruits. Carotid upstrokes are brisk bilaterally. Lungs are clear to auscultation and percussion. Cardiac exam reveals the PMI to be normally sized and situated. Rhythm is regular. First and second heart sounds normal. No murmurs, rubs or gallops. Abdominal exam reveals normal bowel sounds, no masses, no organomegaly and no aortic enlargement. Extremities are nonedematous and both femoral and pedal pulses are normal.Examination of the skin revealed no evidence of significant rashes, suspicious appearing nevi or other concerning lesions.Neurologically, the patient is awake and alert and the patient does not have any focal neurological deficit. Cranial nerves are essentially intact. Results - Laboratory Findings CBC and BMP: 05/12/20 18:21 05/12/20 18:21 PT/INR, D-dimer PT 10.1 sec (9.0-12.0) 05/13/20 03:56 INR 1.0 (<1.2) 10/29/20 03:56 D-Dimer 4.07 mg/L FEU (<0.60) H 05/12/20 23:59 Abnormal lab findings: Abnormal Labs 05/12/20 05/12/20 05/12/20 18:21 18:21 18:21 APTT D-Dimer Sodium 135 L Potassium 5.3 H Glucose 350 H POC Glucose (mg/dL) Troponin I 0.041 H* Triglycerides 251 H HDL Cholesterol 35 L 05/12/20 05/12/20 05/12/20 21:04 23:59 23:59 APTT D-Dimer 4.07 H Sodium Potassium Glucose POC Glucose (mg/dL) Troponin I 0.047 H* 0.040 H* Triglycerides HDL Cholesterol 05/13/20 05/13/20 05/13/20 00:02 03:56 06:04 APTT 35.3 H D-Dimer Sodium Potassium Glucose POC Glucose (mg/dL) 249 H 176 H Troponin I Triglycerides HDL Cholesterol - Diagnostic Findings Chest x-ray: image reviewed CT scan - chest: image reviewed U/S of Legs: image reviewed Assessment and Plan Plan: 1 acute bilateral pulmonary embolism with a right lower extremity DVT involving the popliteal vein, unprovoked 2 palpitation, likely on the basis of paroxysmal atrial fibrillation 3 diabetes mellitus 4 hyperlipidemia 5 family history of a DVT 6 chronic smoker Plan The patient can be transitioned to long-term articulation with Eliquis. I suspect that the patient will need long-term and coagulation special that the patient is having some palpitations that could be potentially related to approximately atrial fibrillation. Recommend an outpatient night monitor to rule out PAF. He is DVT and pulmonary embolism is quite unprovoked and the patient will benefit from long-term and to coagulation No indication for Ekos as the patient is currently on room air, he was dynami evie stable, no sinus tachycardia and the patient's echocardiogram at shown no significant RV dysfunction or pulmonary hypertension We'll continue to follow
--- NOTE | 2020-05-13 15:08 | P.PN ---
Progress Note - Text Progress Note Date: 05/13/20 Patient was seen. Please refer to H&P for full documentation. Patient currently reports no symptoms. He denies any chest pain, shortness of breath, palpitations, dizziness. He is in no acute distress. He is being anticoagulated with Eliquis 10 mg PO BID. No atrial fibrillation seen on Telemetry. Patient would benefit from event monitor at home. Plans to observe overnight. Hopeful discharge tomorrow if patient continues to show improvement.
[2020-05-13 16:47] LABS: Glucose,Whole Blood 207 mg/dL (75-99)
--- NOTE | 2020-05-13 16:59 | P.CONS ---
History of Present Illness - Reason for Consult Consult date: 05/13/20 Bilateral PE, LLE DVT Requesting physician: Kaylie Schmid - Chief Complaint afib, SOB on exertion - History of Present Illness Mr. Avendaño is a very pleasant 64 year old male pt who we have been asked to see re: LLE DVT and bilateral PE. Pt states for about 2 days he began noticing more frequent episodes of a-fib-6-8 in 30 min, he typically will only experience it once in a great while, resolved with valsalva maneuver. This time though, the symptoms persisted, he began having associated symptoms of chst discomfort, SOB on exertion, dizziness and weakness. He came to ER, CTA and doppler showing bilateral PE, LLE DVT, elevated trop and RV heart strain. He f eels better since admit. Denies bleeding. He denied long trips, injuries, decrease in activity, surgery, steroid use, hormone use, he has never had a clot, his brother had a blood clot, in his 50's 2/2 uncontrolled DM. His mother had and unknown cancer, dies within 3 weeks of diagnosis. He states he is very active. Has had colonoscopy and prostate exams. Remote history of smoking, occasional cigar. Review of Systems 14 point ROS is negative except as stated in HPI Past Medical History Past Medical History: Diabetes Mellitus, Hyperlipidemia, Supraventricular Tachycardia (SVT) History of Any Multi-Drug Resistant Organisms: None Reported Past Surgical History: Bariatric Surgery, Cholecystectomy Past Anesthesia/Blood Transfusion Reactions: No Reported Reaction Past Psychological History: No Psychological Hx Reported Smoking Status: Current every day smoker Past Alcohol Use History: Rare Past Drug Use History: None Reported Additional Drug Use History / Comment(s): pt states he smokes cigars - Past Family History Father Family Medical History: AICD/Pacemaker, Diabetes Mellitus Mother Additional Family Medical History / Comment(s): at age 67 from systemic cancer Brother(s) Additional Family Medical History / Comment(s): brother had a DVT Medications and Allergies Home Medications Medication Instructions Recorded Confirmed Type Aspirin EC [Ecotrin Low Dose] 81 mg PO BID 05/12/20 05/12/20 History Atorvastatin [Lipitor] 20 mg PO DAILY 05/12/20 05/12/20 History Fish Oil/Dha/Epa [Fish Oil 1,200 2 cap PO BID 05/12/20 05/12/20 History mg Fish Oil] Vitamin D3(Unknown Dose) 1 tab PO DAILY 05/12/20 05/12/20 History Allergies Allergy/AdvReac Type Severity Reaction Status Date / Time No Known Allergies Allergy Verified 05/12/20 20:05 Physical Exam Vitals: Vital Signs Temp Pulse Pulse Resp BP BP Pulse Ox 05/13/20 12:19 98.5 F 60 18 156/75 96 05/13/20 09:45 98.1 F 73 18 164/77 95 05/13/20 04:00 97.7 F 63 16 151/72 95 05/13/20 00:56 67 16 05/13/20 00:55 98.5 F 67 16 140/88 96 05/12/20 23:01 66 18 133/78 96 05/12/20 19:08 76 18 123/78 96 05/12/20 18:18 90 05/12/20 17:14 98.8 F 69 18 168/92 98 Intake and Output 05/13/20 05/13/20 05/13/20 06:59 14:59 22:59 Intake Total 30.587 250 Output Total 200 150 Balance -169.413 100 Intake: Intake, IV Titration 30.587 Amount Heparin Sod,Pork in 0.45% 30.587 NaCl 25,000 unit In 0.45 % NaCl 1 250ml.bag @ 18 UNITS/KG/HR 20.167 mls/hr IV .[id number] [facility] Rx#: [id number] Oral 250 Output: Urine 200 150 Other: Voiding Method Toilet # Voids 1 Weight 112.2 kg - Constitutional General appearance: cooperative, no acute distress, obese - EENT Eyes: anicteric sclerae, EOMI ENT: hearing grossly normal - Neck Neck: no lymphadenopathy - Respiratory Respiratory: bilateral: CTA - Cardiovascular Rhythm: regular Heart sounds: normal: S1, S2 Abnormal Heart Sounds: systolic murmur (very soft) leg Peripheral Edema: bilateral: None - Gastrointestinal General gastrointestinal: no absent bowel sounds, no decreased bowel sounds, no distended, no hepatomegaly, no hyperactive bowel sounds, normal bowel sounds, no organomegaly, no rigid, no scaphoid, soft, no splenomegaly, no tenderness, no umbilical hernia, no ventral hernia - Integumentary Integumentary: normal - Neurologic Neurologic: CNII-XII intact - Musculoskeletal Musculoskeletal: strength equal bilaterally - Psychiatric Psychiatric: A&O x's 3, appropriate affect, intact judgment & insight Results CBC & Chem 7: 05/12/20 18:21 05/12/20 18:21 Labs: Abnormal Lab Results - Last 24 Hours (Table) 05/12/20 05/12/20 05/12/20 Range/Units 18:21 18:21 18:21 APTT (22.0-30.0) sec D-Dimer (<0.60) mg/L FEU Sodium 135 L (137-145) mmol/L Potassium 5.3 H (3.5-5.1) mmol/L Glucose 350 H (74-99) mg/dL POC Glucose (mg/dL) (75-99) mg/dL Troponin I 0.041 H* (0.000-0.034) ng/mL Triglycerides 251 H (<150) mg/dL HDL Cholesterol 35 L (40-60) mg/dL 05/12/20 05/12/20 05/12/20 Range/Units 21:04 23:59 23:59 APTT (22.0-30.0) sec D-Dimer 4.07 H (<0.60) mg/L FEU Sodium (137-145) mmol/L Potassium (3.5-5.1) mmol/L Glucose (74-99) mg/dL POC Glucose (mg/dL) (75-99) mg/dL Troponin I 0.047 H* 0.040 H* (0.000-0.034) ng/mL Triglycerides (<150) mg/dL HDL Cholesterol (40-60) mg/dL 05/13/20 05/13/20 05/13/20 Range/Units 00:02 03:56 06:04 APTT 35.3 H (22.0-30.0) sec D-Dimer (<0.60) mg/L FEU Sodium (137-145) mmol/L Potassium (3.5-5.1) mmol/L Glucose (74-99) mg/dL POC Glucose (mg/dL) 249 H 176 H (75-99) mg/dL Troponin I (0.000-0.034) ng/mL Triglycerides (<150) mg/dL HDL Cholesterol (40-60) mg/dL 05/13/20 05/13/20 Range/Units 11:34 11:36 APTT 127.4 H* (22.0-30.0) sec D-Dimer (<0.60) mg/L FEU Sodium (137-145) mmol/L Potassium (3.5-5.1) mmol/L Glucose (74-99) mg/dL POC Glucose (mg/dL) 180 H (75-99) mg/dL Troponin I (0.000-0.034) ng/mL Triglycerides (<150) mg/dL HDL Cholesterol (40-60) mg/dL CT scan - chest: report reviewed Venous US: report reviewed Assessment and Plan (1) Left leg DVT Current Visit: Yes Status: Acute Priority: High Code(s): I82.402 - ACUTE EMBOLISM AND THOMBOS UNSP DEEP VEINS OF L LOW EXTREM SNOMED Code(s): 102998348 (2) Pulmonary emboli Current Visit: Yes Status: Acute Priority: High Code(s): I26.99 - OTHER PULMONARY EMBOLISM WITHOUT ACUTE COR PULMONALE SNOMED Code(s): 32641677 Plan: Unprovoked LLE DVT, bilateral PE with RV heart strain. Cont heparin drip for 48 hours before transitioning to oral anticoagulation because of extent and symptoms from blood clots. Will send DOAC Rx to [facility] for copay verification. Recommend lifelong anticoagulation for unprovoked, extensive DVT/PE. Recommend hypercoaguable work up as an outpatient We reviewed bleeding precautions on DOAC Recommended to pt that he get back with Dr. Busch in regards to his DMII Pt verbalized understanding and is in agreement with plan
[2020-05-13 17:40] LABS: Hemoglobin A1C 12.5 % (4.0-6.0)
[2020-05-13 20:36] LABS: Glucose,Whole Blood 241 mg/dL (75-99)
[2020-05-14] MEDS ORDERED: ACETAMINOPHEN TAB 325 MG TAB PO PRN (04:03)
[2020-05-14 06:25] LABS: Glucose,Whole Blood 178 mg/dL (75-99)
[2020-05-14] MEDS: INSULIN ASPART (NovoLOG) 100 UNIT/ML VIAL SQ SCH ×2 (06:27→11:59)
[2020-05-14 07:47] LABS: Basophils % (A) 0 %; Eosinophils # (A) 0.2 k/uL (0-0.7); Eosinophils % (A) 3 %; HCT 43.4 % (39.0-53.0); HGB 14.2 gm/dL (13.0-17.5); Lymphocytes % (A) 32 %; MCH 29.5 pg (25.0-35.0); MCHC 32.7 g/dL (31.0-37.0); MCV 90.2 fL (80.0-100.0); Monocytes # (A) 0.4 k/uL (0-1.0); Monocytes % (A) 6 %; Neutrophils # (A) 3.6 k/uL (1.3-7.7); Neutrophils % (A) 58 %; Platelet Count 160 k/uL (150-450); RBC 4.81 m/uL (4.30-5.90); WBC 6.3 k/uL (3.8-10.6)
[2020-05-14 08:02] LABS: African American GFR (CKD) >90 (>60 ml/min/1.73 sqM); Anion Gap 6 mmol/L; Blood Urea Nitrogen 21 mg/dL (9-20); Carbon Dioxide 28 mmol/L (22-30); Chloride 103 mmol/L (98-107); Glucose 186 mg/dL (74-99); Non-African American GFR(CKD) >90 (>60 ml/min/1.73 sqM); Potassium 4.1 mmol/L (3.5-5.1); Sodium 137 mmol/L (137-145)
[2020-05-14] MEDS: ATORVASTATIN 20 MG TAB PO SCH (08:51)
[2020-05-14] MEDS: APIXABAN 5 MG TAB PO SCH (08:51)
[2020-05-14 08:58] VITALS: RESP 18
[2020-05-14] MEDS ORDERED: ASPIRIN 81 MG PO SCH (09:00)
--- NOTE | 2020-05-14 11:02 | P.PN ---
Subjective Patient looks very comfortable no chest discomfort no shortness of breath no dizziness lightheadedness or palpitations. He has pulmonary embolism and is now has been switched to ELIQUIS Blood pressure 137/60 430 406 9 mmHg pulse rate in the 50s and 60s afebrile 90F Breath sounds are clear no rhonchi no crackles Normal heart sounds normal S1 normal S2 No murmurs or gallops or rub Abdomen soft Extremities warm Impression paroxysmal atrial fibrillation as a presentation of pulmonary embolism with only mild shortness of breath Family being treated for pulmonary embolism His brother has had a clotting disorder Patient also has DVT He is diabetic type II No hypertension From a cardiac standpoint, continue atorvastatin baby aspirin continue ELIQUIS Follow-up Dr. Stuart within 3-4 weeks upon discharge Objective - Vital Signs Vital signs: Vital Signs Temp 97.2 F L 05/14/20 08:55 Pulse 63 05/14/20 08:55 Resp 18 05/14/20 08:55 BP 137/64 05/14/20 08:55 Pulse Ox 95 05/14/20 08:55 Intake & Output 05/13/20 05/14/20 05/14/20 18:59 06:59 18:59 Intake Total 490 300 Output Total 150 Balance 340 300 Weight 111.4 kg Intake: Oral 490 300 Output: Urine 150 Other: Voiding Method Toilet # Voids 1 1 - Labs CBC & Chem 7: 05/14/20 07:21 05/14/20 07:21 Labs: Abnormal Lab Results - Last 24 Hours (Table) 05/12/20 05/13/20 05/13/20 Range/Units 18:21 11:34 11:36 APTT 127.4 H* (22.0-30.0) sec BUN (9-20) mg/dL Glucose (74-99) mg/dL POC Glucose (mg/dL) 180 H (75-99) mg/dL Hemoglobin A1c 12.5 H (4.0-6.0) % 05/13/20 05/13/20 05/14/20 Range/Units 16:45 20:34 06:20 APTT (22.0-30.0) sec BUN (9-20) mg/dL Glucose (74-99) mg/dL POC Glucose (mg/dL) 207 H 241 H 178 H (75-99) mg/dL Hemoglobin A1c (4.0-6.0) % 05/14/20 Range/Units 07:21 APTT (22.0-30.0) sec BUN 21 H (9-20) mg/dL Glucose 186 H (74-99) mg/dL POC Glucose (mg/dL) (75-99) mg/dL Hemoglobin A1c (4.0-6.0) %
[2020-05-14 11:03] VITALS: BMI 37.3
[2020-05-14 11:54] LABS: Glucose,Whole Blood 221 mg/dL (75-99)
[2020-05-14 12:05] VITALS: BP 134/70; PULSE 68; TEMP 98.1
--- NOTE | 2020-05-14 12:15 | P.PN ---
Subjective Progress Note Date: 05/14/20 Principal diagnosis: Bilateral pulmonary embolism, left lower extremity deep vein thrombosis Patient was seen and examined at the bedside with Dr. Vila. The patient denies any shortness of breath or chest pain. He denies any difficulty with breathing or pain with inspiration. He denies any pain in bilateral lower extremities. He has been up and ambulating without difficulty. He was transitioned yesterday from his heparin drip to Eliquis. Insurance coverage was verified. Objective - Vital Signs Vital signs: Vital Signs Temp 97.2 F L 05/14/20 08:55 Pulse 63 05/14/20 08:55 Resp 18 05/14/20 08:55 BP 137/64 05/14/20 08:55 Pulse Ox 95 05/14/20 08:55 Intake & Output 05/13/20 05/14/20 05/14/20 18:59 06:59 18:59 Intake Total 490 300 Output Total 150 Balance 340 300 Weight 111.4 kg Intake: Oral 490 300 Output: Urine 150 Other: Voiding Method Toilet # Voids 1 1 - Exam General appearance: The patient is alert, oriented, in no acute distress. HET: Head is normocephalic and atraumatic. Neck: Supple without lymphadenopathy. Trachea midline. Heart: S1 S2. Regular rate and rhythm. Lungs: There are to auscultation Abdomen: Soft, nontender, nondistended with bowel sounds. Extremities: Normal skin color and turgor. No cyanosis, rash, ulceration, clubbing, or edema. Radial and pedal pulses are 2/4 bilaterally. Neurological: No focal deficits. Strength and sensation are grossly intact. - Labs CBC & Chem 7: 05/14/20 07:21 05/14/20 07:21 Labs: Abnormal Lab Results - Last 24 Hours (Table) 05/12/20 05/13/20 05/13/20 Range/Units 18:21 11:34 11:36 APTT 127.4 H* (22.0-30.0) sec BUN (9-20) mg/dL Glucose (74-99) mg/dL POC Glucose (mg/dL) 180 H (75-99) mg/dL Hemoglobin A1c 12.5 H (4.0-6.0) % 05/13/20 05/13/20 05/14/20 Range/Units 16:45 20:34 06:20 APTT (22.0-30.0) sec BUN (9-20) mg/dL Glucose (74-99) mg/dL POC Glucose (mg/dL) 207 H 241 H 178 H (75-99) mg/dL Hemoglobin A1c (4.0-6.0) % 05/14/20 Range/Units 07:21 APTT (22.0-30.0) sec BUN 21 H (9-20) mg/dL Glucose 186 H (74-99) mg/dL POC Glucose (mg/dL) (75-99) mg/dL Hemoglobin A1c (4.0-6.0) % Assessment and Plan Assessment: 1. Pulmonary embolism without evidence of right heart strain per echocardiogram results 2. Deep vein thrombosis of left lower extremity 3. Dyslipidemia 4. Hypertension 5. Obstructive sleep apnea 6. Obesity 7. Nicotine dependence Plan: Continue with Eliquis 10 mg by mouth twice a day 7 days then change to 5 mg by mouth twice a day. Discussed with patient should follow-up with hematology. From a vascular surgical standpoint patient may be discharged home if cleared by cardiology and medicine team. Also discuss with patient there is no need for outpatient follow-up with vascular surgery, can follow-up as needed. The impression and plan of care has been dictated as directed. Dr. Vila I performed a history and examination of this patient, discussed the same with the dictator. I agree with the dictator's note ,documented as a scribe. Any additional findings or plans will be noted.
--- NOTE | 2020-05-14 14:42 | P.PN ---
Subjective Progress Note Date: 05/14/20 05/14/2020, the patient is doing extremely well. He is on room air oxygen. He is on Eliquis 5 mg by mouth twice a day. No pleurisy. No hemoptysis. No chest pain. No swelling lower extremities. HbA1c was noted to be elevated at 12 and the patient was noted to have elevated blood sugar. The patient was started on NPH Novolin 70/30 pen 15 units twice a day in addition to a sliding scale coverage. 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 Note that he was not receiving any treatment for his blood sugar on outpatient basis. He has no other complaints otherwise for now. His been committed to long-term anticoagulation. His cardiac rhythm is sinus. He is not feeling any palpitations. Objective - Vital Signs Vital signs: Vital Signs Temp 98.1 F 05/14/20 12:00 Pulse 68 05/14/20 12:00 Resp 18 05/14/20 12:00 BP 134/70 05/14/20 12:00 Pulse Ox 97 05/14/20 12:00 Intake & Output 05/13/20 05/14/20 05/14/20 18:59 06:59 18:59 Intake Total 490 300 Output Total 150 Balance 340 300 Weight 111.4 kg 111.4 kg Intake: Oral 490 300 Output: Urine 150 Other: Voiding Method Toilet # Voids 1 1 - Exam The patient appeared well nourished and normally developed. Vital signs as documented. Head exam is unremarkable. No scleral icterus or corneal arcus noted. Neck is without jugular venous distension, thyromegaly, or carotid bruits. Carotid upstrokes are brisk bilaterally. Lungs are clear to auscultation and percussion. Cardiac exam reveals the PMI to be normally sized and situated. Rhythm is regular. First and second heart sounds normal. No murmurs, rubs or gallops. Abdominal exam reveals normal bowel sounds, no masses, no organomegaly and no aortic enlargement. Extremities are nonedematous and both femoral and pedal pulses are normal. - Labs CBC & Chem 7: 05/14/20 07:21 05/14/20 07:21 Labs: Abnormal Lab Results - Last 24 Hours (Table) 05/12/20 05/13/20 05/13/20 Range/Units 18:21 16:45 20:34 BUN (9-20) mg/dL Glucose (74-99) mg/dL POC Glucose (mg/dL) 207 H 241 H (75-99) mg/dL Hemoglobin A1c 12.5 H (4.0-6.0) % 05/14/20 05/14/20 05/14/20 Range/Units 06:20 07:21 11:46 BUN 21 H (9-20) mg/dL Glucose 186 H (74-99) mg/dL POC Glucose (mg/dL) 178 H 221 H (75-99) mg/dL Hemoglobin A1c (4.0-6.0) % Assessment and Plan Plan: 1 acute bilateral pulmonary embolism with a right lower extremity DVT involving the popliteal vein, unprovoked 2 palpitation, likely on the basis of paroxysmal atrial fibrillation 3 diabetes mellitus, started back on long-acting insulin for blood sugar control. 4 hyperlipidemia 5 family history of a DVT 6 chronic smoker Plan The patient can be transitioned to long-term articulation with Eliquis. The patient is currently receiving Eliquis 5 mg by mouth twice a day. This will be hopefully a long-term anticoagulation for unprovoked DVT and PE. 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 Smoking incision counseling was done. Agree on discharge
--- NOTE | 2020-05-14 15:51 | P.PN ---
Subjective Progress Note Date: 05/14/20 Principal diagnosis: Bilateral Pulmonary Emboli planing dc today Objective - Vital Signs Vital signs: Vital Signs Temp 98.1 F 05/14/20 12:00 Pulse 68 05/14/20 12:00 Resp 18 05/14/20 12:00 BP 134/70 05/14/20 12:00 Pulse Ox 97 05/14/20 12:00 Intake & Output 05/13/20 05/14/20 05/14/20 18:59 06:59 18:59 Intake Total 490 300 Output Total 150 Balance 340 300 Weight 111.4 kg 111.4 kg Intake: Oral 490 300 Output: Urine 150 Other: Voiding Method Toilet # Voids 1 1 - Exam - Constitutional General appearance: cooperative, no acute distress, obese - EENT Eyes: anicteric sclerae, EOMI ENT: hearing grossly normal - Neck Neck: no lymphadenopathy - Respiratory Respiratory: bilateral: CTA - Cardiovascular Rhythm: regular Heart sounds: normal: S1, S2 Abnormal Heart Sounds: systolic murmur (very soft) leg Peripheral Edema: bilateral: None - Gastrointestinal General gastrointestinal: no absent bowel sounds, no decreased bowel sounds, no distended, no hepatomegaly, no hyperactive bowel sounds, normal bowel sounds, no organomegaly, no rigid, no scaphoid, soft, no splenomegaly, no tenderness, no umbilical hernia, no ventral hernia - Integumentary Integumentary: normal - Neurologic Neurologic: CNII-XII intact - Musculoskeletal Musculoskeletal: strength equal bilaterally - Psychiatric Psychiatric: A&O x's 3, appropriate affect, intact judgment & insight - Labs CBC & Chem 7: 05/14/20 07:21 05/14/20 07:21 Labs: Abnormal Lab Results - Last 24 Hours (Table) 05/12/20 05/13/20 05/13/20 Range/Units 18:21 16:45 20:34 BUN (9-20) mg/dL Glucose (74-99) mg/dL POC Glucose (mg/dL) 207 H 241 H (75-99) mg/dL Hemoglobin A1c 12.5 H (4.0-6.0) % 05/14/20 05/14/20 05/14/20 Range/Units 06:20 07:21 11:46 BUN 21 H (9-20) mg/dL Glucose 186 H (74-99) mg/dL POC Glucose (mg/dL) 178 H 221 H (75-99) mg/dL Hemoglobin A1c (4.0-6.0) % Assessment and Plan Plan: CT scan - chest: report reviewed Venous US: report reviewed Assessment and Plan (1) Left leg DVT Current Visit: Yes Status: Acute Priority: High Code(s): I82.402 - ACUTE EMBOLISM AND THOMBOS UNSP DEEP VEINS OF L LOW EXTREM SNOMED Code(s): 920284624 (2) Pulmonary emboli Current Visit: Yes Status: Acute Priority: High Code(s): I26.99 - OTHER PULMONARY EMBOLISM WITHOUT ACUTE COR PULMONALE SNOMED Code(s): 97844915 Plan: Unprovoked LLE DVT, bilateral PE with RV heart strain. Cont heparin drip for 48 hours before transitioning to oral anticoagulation because of extent and symptoms from blood clots. Will send DOAC Rx to [facility] for copay verification. Recommend lifelong anticoagulation for unprovoked, extensive DVT/PE. Recommend hypercoaguable work up as an outpatient We reviewed bleeding precautions on DOAC Recommended to pt that he get back with Dr. Busch in regards to his DMTII Pt verbalized understanding and is in agreement with plan Will see patient in follow-up in 4 weeks
--- NOTE | 2020-05-14 16:53 | P.DS ---
Providers Date of admission: 05/13/20 10:47 Expected date of discharge: 05/14/20 Attending physician: Kaylie Schmid MD Consults: 05/12/20 22:38 Consult Physician Urgent Consulting Provider: Adolfo Negron Consult Reason/Comments: PACs, elevated troponin Do you want consulting provider notified?: Yes, Notify in am 05/13/20 03:22 Consult Physician Urgent Consulting Provider: Sanjay Aguilera Consult Reason/Comments: jarad PEs Do you want consulting provider notified?: Yes 05/13/20 08:43 Consult Physician Stat Consulting Provider: Db Gross Consult Reason/Comments: PE Do you want consulting provider notified?: Yes 05/13/20 09:36 Consult Physician Stat Consulting Provider: Beryl Vila Consult Reason/Comments: PE with RV strain Do you want consulting provider notified?: Yes Primary care physician: [facility] Course: Patient is a 64-year-old male with a PMH of type II DM, mitral valve prolapse, and A. fib who presented to the emergency room with complaints of palpitations. The patient notes that he was initially diagnosed with mitral valve prolapse in his teenage years. The patient notes that he saw a public health registrar many years ago and was started on aspirin. The patient notes that he has been having palpitations for several years, and normally does Valsalva which aborts the episodes. He usually had no symptoms with the palpitations. Over the past 2 days however the patient notes that his palpitations were persistent and he also had associated dizziness and felt as though he was going to faint. Denied chest discomfort, shortness of breath, nausea, vomiting, or diaphoresis. Also denied lower extremity pain, lower extremity swelling cough, fever, chills, abdominal pain. EKG in the emergency room revealed sinus rhythm with APCs at 80 bpm with an incomplete right bundle ivan block. Chest x-ray was unremarkable. Laboratory evaluation revealed a troponin of 0.041 with d-dimer 4.07. CT Angio chest which revealed significant jarad pulmonary emboli with RV strain. The patient resting comfortably in bed with vitals: BP 140/88, P 63, SpO2 97% on RA. LE duplex was ordered and increase Heparin infusion to high intensity. Hematology was consulted for hypercoagulability w/u due to jarad PEs. There is no atrial fibrillation that was seen on telemetry during hospitalization. Venous Doppler done showed DVT in the left lower extremity of the popliteal and calf veins area He was started on heparin drip and transitioned to Eliquis by mouth. Echocardiogram was done which showed EF 50- 55% with mild concentric LVH and no considerable right ventricular strain. Initially, patient was going to be transferred to [facility] for EKOS but vascular surgery was consulted and recommended medical management as patient did not have right ventricular strain on echocardiogram. Pulmonology was consulted and followed the patient during his hospitalization. Hematology was consulted and recommended outpatient follow-up for hypercoagulable workup. Patient was seen and examined. No acute events overnight. Patient denies any chest pain, shortness breath or palpitations. No dizziness. Ambulating the hallways without any difficulties. General: [non toxic], [no distress], [appears at stated age] Derm: [warm], [dry] Head: [atraumatic], [normocephalic], [symmetric] Eyes: [EOMI], [no lid lag], [anicteric sclera] Mouth: [no lip lesion], [mucus membranes moist] Cardiovascular: [S1S2 reg], [no murmur], [positive posterior tibial pulse bilateral], Lungs: [CTA bilateral], [no rhonchi, no rales] , [no accessory muscle use] Abdominal: [soft], [ nontender to palpation], [no guarding], [no appreciable organomegaly] Ext: [no gross muscle atrophy], [no edema], [no contractures] Neuro: [no focal neuro deficits] Psych: [Alert], [oriented], [appropriate affect] Paroxysmal A. fib -Patient was noted to be in A. fib as per the ED staff after he was initially placed on the monitor, though it was not captured on EKG -Continue with Eliquis -Cardiac monitoring -Cardiology consult - recommends aspirin, Lipitor and Eliquis -Echocardiogram as above Elevated troponin, likely demand ischemia secondary to A. fib with RVR -Troponins are flat at 0.041, 0.047, 0.04. Likely troponin leak from heart strain due to PE. Acute coronary syndrome ruled out. PE and DVT -Continue Eliquis as instructed -Follow hematology for hypercoagulable workup in the outpatient setting Type II DM with hyperglycemia -Insulin sliding scale blood glucose monitoring -Patient reports previously being on insulin but was discontinued at some point. He'll be started on insulin 7030 15 units twice a day. Patient states that he has an appointment with inner tube inserter Dr. Busch on Sunday. Patient states he has diabetic supplies at home. -A1c 12.5 DVT prophylaxis -Eliquis [Patient admitted for PE and DVT. On Eliquis. Follow-up pulmonology on May 27. Follow-up with endocrinology on Sunday. Follow-up with cardiology within 2 weeks. Follow-up with hematology within 6 weeks. Patient verbalized understanding of the plan. Patient advised to not exert himself. This complex discharge took about 45 minutes to complete.] Pertinent Studies: Chest x-ray, chest CTA, venous Doppler, echocardiogram Patient Condition at Discharge: Stable Plan - Discharge Summary Discharge Rx Participant: No New Discharge Prescriptions: New Apixaban [Eliquis] 5 mg PO BID #70 tab Insulin NPH Hum/Reg Insulin Hm [Novolin 70-30 Flexpen] 15 units SQ AC-BID #3 pen Continue Fish Oil/Dha/Epa [Fish Oil 1,200 mg Fish Oil] 2 cap PO BID Atorvastatin [Lipitor] 20 mg PO DAILY Aspirin EC [Ecotrin Low Dose] 81 mg PO BID Vitamin D3(Unknown Dose) 1 tab PO DAILY Discharge Medication List Aspirin EC [Ecotrin Low Dose] 81 mg PO BID 05/12/20 [History] Atorvastatin [Lipitor] 20 mg PO DAILY 05/12/20 [History] Fish Oil/Dha/Epa [Fish Oil 1,200 mg Fish Oil] 2 cap PO BID 05/12/20 [History] Vitamin D3(Unknown Dose) 1 tab PO DAILY 05/12/20 [History] Apixaban [Eliquis] 5 mg PO BID #70 tab 05/13/20 [Rx] Insulin NPH Hum/Reg Insulin Hm [Novolin 70-30 Flexpen] 15 units SQ AC-BID #3 pen 05/14/20 [Rx] Follow up Appointment(s)/Referral(s): Lorenzo Stuart MD [STAFF PHYSICIAN] - 2 Weeks (The office will call you with appointment date and time.) Sanjay Aguilera MD [STAFF PHYSICIAN] - 6 Weeks (Pt needs to have hypercoaguable lab work up completed 2 weeks prior to visit. The office will call you with appointment date and time.) Nonstaff,Physician [REFERRING] - 1-2 days (primary care physicain ) Amelia Busch MD [STAFF PHYSICIAN] - 1 Week (keep scheduled appointment) Db Gross MD [STAFF PHYSICIAN] - 05/27/20 1:45 pm (appointment with Dr Ross) Patient Instructions/Handouts: A-fib (Atrial Fibrillation) (DC), Pulmonary Embolism (DC), Deep Vein Thrombosis (DC) Activity/Diet/Wound Care/Special Instructions: pts copay for EliquDelivery Hero is $10/mo-first month filled in [facility] Take 15 units of 70:30 insulin twice a day. Check your blood sugars 3 times a day. Discharge Disposition: HOME SELF-CARE
== END 2020-05-14 13:48 | disposition home or self-care (01) | DRG 176 ==
LOC: EC 17:00 → 3SCARD 22:41 → OBSVTOIN 05-13 10:47
PROVIDERS: ADMIT Internal Medicine; ATTEND Internal Medicine
DX: I26.99 Other pulmonary embolism without acute cor pulmonale (principal); I24.8 Other forms of acute ischemic heart disease; I82.432 Acute embolism and thrombosis of left popliteal vein; I82.4Z2 Acute embolism and thrombosis of unspecified deep veins of left distal lower extremity; I27.20 Pulmonary hypertension, unspecified; Z79.4 Long term (current) use of insulin; E11.65 Type 2 diabetes mellitus with hyperglycemia; I48.0 Paroxysmal atrial fibrillation; E66.9 Obesity, unspecified; E78.5 Hyperlipidemia, unspecified; F17.290 Nicotine dependence, other tobacco product, uncomplicated; G47.33 Obstructive sleep apnea (adult) (pediatric); I08.1 Rheumatic disorders of both mitral and tricuspid valves; I49.1 Atrial premature depolarization; I45.10 Unspecified right bundle-branch block; Z79.82 Long term (current) use of aspirin; Z79.899 Other long term (current) drug therapy; Z68.37 Body mass index [BMI] 37.0-37.9, adult; Z90.49 Acquired absence of other specified parts of digestive tract; Z87.19 Personal history of other diseases of the digestive system; Z83.2 Family history of diseases of the blood and blood-forming organs and certain disorders involving the immune mechanism; Z83.3 Family history of diabetes mellitus; Z80.9 Family history of malignant neoplasm, unspecified
CPT/HCPCS: 36415; 71046; 71275; 80048; 80053; 80061; 82550; 83036; 83735; 84443; 84484; 85025; 85379; 85610; 85730; 93005; 93306; 93970; 96374; 99285

== ENCOUNTER 2020-06-02 11:14 | Inpatient (IN) | payer MEDICARE, BC ==
--- NOTE | 2020-06-02 11:50 | ED ---
General Adult HPI - General Source: patient, EMS, RN notes reviewed Mode of arrival: EMS Limitations: physical limitation <Con Cordero - Last Filed: 06/02/20 14:24> <Kristy Rolle - Last Filed: 06/05/20 14:03> - General Chief complaint: Shortness of Breath Stated complaint: SOB Time Seen by Provider: 06/02/20 11:27 - History of Present Illness Initial comments: This a 64-year-old male presents emergency Department with chief complaint of shortness breath, tachycardia. Patient was admitted a couple weeks ago for DVT, PE. Patient states he has bilateral PEs on Eliquis. Patient states that he's been having worsening symptoms. He states that he started feeling sick on Sunday. 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 Patient is concerned about possible Covid. Patient does take Tylenol regular basis. He states he has no chest pain at this time. He notices worsening symptoms when he exerts or does any sort walking. Patient has no abdominal plain denies any bleeding. (Con Cordero) - Related Data Home Medications Medication Instructions Recorded Confirmed Atorvastatin [Lipitor] 20 mg PO DAILY 05/12/20 06/02/20 Fish Oil/Dha/Epa [Fish Oil 1,200 2 cap PO BID 05/12/20 06/02/20 mg Fish Oil] Vitamin D3(Unknown Dose) 1 tab PO DAILY 05/12/20 06/02/20 Previous Rx's Medication Instructions Recorded Apixaban [Eliquis] 5 mg PO BID #70 tab 05/13/20 Insulin Glargine,Hum.rec.anlog 10 unit SQ HS #4 pen 06/05/20 [Lantus Solostar] metFORMIN HCL [Glucophage] 500 mg PO BID #60 tab 06/05/20 Allergies Allergy/AdvReac Type Severity Reaction Status Date / Time No Known Allergies Allergy Verified 06/02/20 13:28 Review of Systems ROS Other: All systems not noted in ROS Statement are negative. <Con Cordero - Last Filed: 06/02/20 14:24> ROS Other: All systems not noted in ROS Statement are negative. <Kristy Rolle - Last Filed: 06/05/20 14:03> ROS Statement: Those systems with pertinent positive or pertinent negative responses have been documented in the HPI. Past Medical History Past Medical History: Atrial Fibrillation, Diabetes Mellitus, Deep Vein Thrombosis (DVT), Hyperlipidemia, Supraventricular Tachycardia (SVT) History of Any Multi-Drug Resistant Organisms: None Reported Past Surgical History: Bariatric Surgery, Cholecystectomy Past Anesthesia/Blood Transfusion Reactions: No Reported Reaction Past Psychological History: No Psychological Hx Reported Smoking Status: Current every day smoker Past Alcohol Use History: Rare Past Drug Use History: None Reported - Past Family History Father Family Medical History: AICD/Pacemaker, Diabetes Mellitus Mother Additional Family Medical History / Comment(s): at age 67 from systemic cancer Brother(s) Additional Family Medical History / Comment(s): brother had a DVT <Con Cordero - Last Filed: 06/02/20 14:24> General Exam Limitations: physical limitation General appearance: alert, in no apparent distress Head exam: Present: atraumatic, normocephalic, normal inspection Eye exam: Present: normal appearance, PERRL, EOMI. Absent: scleral icterus, conjunctival injection, periorbital swelling ENT exam: Present: normal exam, normal oropharynx, mucous membranes moist Neck exam: Present: normal inspection, full ROM. Absent: tenderness, meningismus, lymphadenopathy Respiratory exam: Present: normal lung sounds bilaterally. Absent: respiratory distress, wheezes, rales, rhonchi, stridor Cardiovascular Exam: Present: normal rhythm, tachycardia, normal heart sounds. Absent: systolic murmur, diastolic murmur, rubs, gallop, clicks GI/Abdominal exam: Present: soft, normal bowel sounds. Absent: distended, tenderness, guarding, rebound, rigid <Con Cordero M - Last Filed: 06/02/20 14:24> Course Vital Signs 06/02/20 06/02/20 06/02/20 11:34 12:34 13:26 Temperature 97.8 F Pulse Rate 144 H 144 H 138 H Pulse Rate [ Right Radial] Respiratory 20 18 22 Rate Blood Pressure 115/66 120/87 119/69 Blood Pressure [Right Arm] O2 Sat by Pulse 97 97 97 Oximetry 06/02/20 06/02/20 06/02/20 14:13 15:38 17:19 Temperature Pulse Rate 131 H 146 H 148 H Pulse Rate [ Right Radial] Respiratory 20 18 18 Rate Blood Pressure 125/77 103/70 103/69 Blood Pressure [Right Arm] O2 Sat by Pulse 98 97 99 Oximetry 06/02/20 06/02/20 06/02/20 18:53 20:34 23:30 Temperature Pulse Rate 154 H 156 H 80 Pulse Rate [ Right Radial] Respiratory 18 16 16 Rate Blood Pressure 100/68 102/60 108/66 Blood Pressure [Right Arm] O2 Sat by Pulse 98 98 99 Oximetry 06/03/20 06/03/20 06/03/20 00:31 00:49 04:29 Temperature 98.5 F Pulse Rate 89 82 Pulse Rate [ Right Radial] Respiratory 18 15 Rate Blood Pressure 120/64 128/56 Blood Pressure [Right Arm] O2 Sat by Pulse 99 98 Oximetry 06/03/20 06/03/20 06/03/20 05:26 06:16 07:16 Temperature Pulse Rate 81 79 80 Pulse Rate [ Right Radial] Respiratory 19 17 16 Rate Blood Pressure 140/82 131/60 121/60 Blood Pressure [Right Arm] O2 Sat by Pulse 97 98 98 Oximetry 06/03/20 06/03/20 06/03/20 08:17 09:30 10:24 Temperature Pulse Rate 94 78 77 Pulse Rate [ Right Radial] Respiratory 18 18 18 Rate Blood Pressure 127/64 127/60 149/91 Blood Pressure [Right Arm] O2 Sat by Pulse 100 98 100 Oximetry 06/03/20 06/03/20 06/03/20 11:47 12:00 13:00 Temperature Pulse Rate 74 84 74 Pulse Rate [ Right Radial] Respiratory 18 18 18 Rate Blood Pressure 126/59 132/84 131/58 Blood Pressure [Right Arm] O2 Sat by Pulse 98 98 98 Oximetry 06/03/20 06/03/20 06/03/20 15:00 16:00 17:12 Temperature Pulse Rate 71 74 84 Pulse Rate [ Right Radial] Respiratory 18 18 18 Rate Blood Pressure 142/68 150/76 126/58 Blood Pressure [Right Arm] O2 Sat by Pulse 98 98 98 Oximetry 06/03/20 06/03/20 06/03/20 18:00 20:23 22:00 Temperature 98.0 F Pulse Rate 71 80 Pulse Rate [ 82 Right Radial] Respiratory 18 16 20 Rate Blood Pressure 123/59 143/62 Blood Pressure 118/67 [Right Arm] O2 Sat by Pulse 98 100 Oximetry 06/03/20 22:30 Temperature 98.4 F Pulse Rate 73 Pulse Rate [ Right Radial] Respiratory 18 Rate Blood Pressure 146/60 Blood Pressure [Right Arm] O2 Sat by Pulse 98 Oximetry EKG Findings - EKG Comments: EKG Findings:: EKG performed at 11.23 sinus tachycardia with a rate of 141 AR 132 QRS 88 QT/QTc 266/407 <Con Cordero - Last Filed: 06/02/20 14:24> Medical Decision Making - Lab Data Result diagrams: 06/02/20 11:52 06/02/20 11:52 <Con Cordero - Last Filed: 06/02/20 14:24> - Lab Data Result diagrams: 06/05/20 05:40 06/05/20 05:40 <Kristy Rolle - Last Filed: 06/05/20 14:03> - Medical Decision Making 64-year-old male presented for shortness breath, tachycardia. Patient has evidence of DKA. Patient case discussed with hospitalist, Dr. Vila as patient has bilateral PE known on [facility]. Patient was started on IV fluids will be admitted for DKA treatment. (Con Cordero) I was available for consultation in the emergency department. The history and physical exam were done by the midlevel provider. I was consulted for this patients care. I reviewed the case with the midlevel provider and based on their presentation of the patient, I agree with the assessment, medical decision making and plan of care as documented. Chart was dictated using [employer] dictation software. Attempts were made to correct any dictation errors however some typographical errors may persist. Patient was seen during a national state of emergency due to the Covid-19 pandemic. (Kristy Rolle) - Lab Data Lab Results 06/02/20 06/02/20 06/02/20 Range/Units 11:52 11:52 11:52 WBC 11.0 H (3.8-10.6) k/uL RBC 6.09 H (4.30-5.90) m/uL Hgb 18.0 H D (13.0-17.5) gm/dL Hct 54.4 H (39.0-53.0) % MCV 89.3 (80.0-100.0) fL MCH 29.6 (25.0-35.0) pg MCHC 33.1 (31.0-37.0) g/dL RDW 14.0 (11.5-15.5) % Plt Count 247 (150-450) k/uL MPV 7.6 Neutrophils % 90 % Lymphocytes % 6 % Monocytes % 3 % Eosinophils % 1 % Basophils % 0 % Neutrophils # 9.8 H (1.3-7.7) k/uL Lymphocytes # 0.6 L (1.0-4.8) k/uL Monocytes # 0.4 (0-1.0) k/uL Eosinophils # 0.1 (0-0.7) k/uL Basophils # 0.0 (0-0.2) k/uL PT 9.7 (9.0-12.0) sec INR 0.9 (<1.2) APTT 23.3 (22.0-30.0) sec VBG pH (7.31-7.41) VBG pCO2 (37-51) mmHg VBG HCO3 (24-28) mmol/L Sodium 132 L (137-145) mmol/L Potassium 5.1 (3.5-5.1) mmol/L Chloride 103 (98-107) mmol/L Carbon Dioxide <5 L* (22-30) mmol/L Anion Gap mmol/L BUN 46 H (9-20) mg/dL Creatinine 1.50 H (0.66-1.25) mg/dL Est GFR (CKD-EPI)AfAm 56 (>60 ml/min/1.73 sqM) Est GFR (CKD-EPI)NonAf 48 (>60 ml/min/1.73 sqM) Glucose 287 H (74-99) mg/dL POC Glucose (mg/dL) (75-99) mg/dL POC Glu Optician ID Lactic Ac Sepsis Rflx Plasma Lactic Acid Mir (0.7-2.0) mmol/L Calcium 9.4 (8.4-10.2) mg/dL Phosphorus (2.5-4.5) mg/dL Magnesium 3.0 H (1.6-2.3) mg/dL Total Bilirubin 1.0 (0.2-1.3) mg/dL AST 29 (17-59) U/L ALT 19 (4-49) U/L Alkaline Phosphatase 81 (38-126) U/L Troponin I (0.000-0.034) ng/mL NT-Pro-B Natriuret Pep pg/mL Total Protein 8.2 (6.3-8.2) g/dL Albumin 5.0 (3.5-5.0) g/dL Urine Color Urine Appearance (Clear) Urine pH (5.0-8.0) Ur Specific [place] (1.001-1.035) Urine Protein (Negative) Urine Glucose (UA) (Negative) Urine Ketones (Negative) Urine Blood (Negative) Urine Nitrite (Negative) Urine Bilirubin (Negative) Urine Urobilinogen (<2.0) mg/dL Ur Leukocyte Esterase (Negative) Urine RBC (0-5) /hpf Ur Squamous Epith Cells (0-4) /hpf Urine Mucus (None) /hpf Acetone, Qual (Negative) Coronavirus (PCR) (Not Detectd) 06/02/20 06/02/20 06/02/20 Range/Units 11:52 11:52 11:52 WBC (3.8-10.6) k/uL RBC (4.30-5.90) m/uL Hgb (13.0-17.5) gm/dL Hct (39.0-53.0) % MCV (80.0-100.0) fL MCH (25.0-35.0) pg MCHC (31.0-37.0) g/dL RDW (11.5-15.5) % Plt Count (150-450) k/uL MPV Neutrophils % % Lymphocytes % % Monocytes % % Eosinophils % % Basophils % % Neutrophils # (1.3-7.7) k/uL Lymphocytes # (1.0-4.8) k/uL Monocytes # (0-1.0) k/uL Eosinophils # (0-0.7) k/uL Basophils # (0-0.2) k/uL PT (9.0-12.0) sec INR (<1.2) APTT (22.0-30.0) sec VBG pH (7.31-7.41) VBG pCO2 (37-51) mmHg VBG HCO3 (24-28) mmol/L Sodium (137-145) mmol/L Potassium (3.5-5.1) mmol/L Chloride (98-107) mmol/L Carbon Dioxide (22-30) mmol/L Anion Gap mmol/L BUN (9-20) mg/dL Creatinine (0.66-1.25) mg/dL Est GFR (CKD-EPI)AfAm (>60 ml/min/1.73 sqM) Est GFR (CKD-EPI)NonAf (>60 ml/min/1.73 sqM) Glucose (74-99) mg/dL POC Glucose (mg/dL) (75-99) mg/dL POC Glu Optician ID Lactic Ac Sepsis Rflx Plasma Lactic Acid Mir 2.1 H* (0.7-2.0) mmol/L Calcium (8.4-10.2) mg/dL Phosphorus (2.5-4.5) mg/dL Magnesium (1.6-2.3) mg/dL Total Bilirubin (0.2-1.3) mg/dL AST (17-59) U/L ALT (4-49) U/L Alkaline Phosphatase (38-126) U/L Troponin I 0.039 H* (0.000-0.034) ng/mL NT-Pro-B Natriuret Pep 1650 pg/mL Total Protein (6.3-8.2) g/dL Albumin (3.5-5.0) g/dL Urine Color Urine Appearance (Clear) Urine pH (5.0-8.0) Ur Specific [place] (1.001-1.035) Urine Protein (Negative) Urine Glucose (UA) (Negative) Urine Ketones (Negative) Urine Blood (Negative) Urine Nitrite (Negative) Urine Bilirubin (Negative) Urine Urobilinogen (<2.0) mg/dL Ur Leukocyte Esterase (Negative) Urine RBC (0-5) /hpf Ur Squamous Epith Cells (0-4) /hpf Urine Mucus (None) /hpf Acetone, Qual (Negative) Coronavirus (PCR) (Not Detectd) 06/02/20 06/02/20 06/02/20 Range/Units 11:52 12:27 12:28 WBC (3.8-10.6) k/uL RBC (4.30-5.90) m/uL Hgb (13.0-17.5) gm/dL Hct (39.0-53.0) % MCV (80.0-100.0) fL MCH (25.0-35.0) pg MCHC (31.0-37.0) g/dL RDW (11.5-15.5) % Plt Count (150-450) k/uL MPV Neutrophils % % Lymphocytes % % Monocytes % % Eosinophils % % Basophils % % Neutrophils # (1.3-7.7) k/uL Lymphocytes # (1.0-4.8) k/uL Monocytes # (0-1.0) k/uL Eosinophils # (0-0.7) k/uL Basophils # (0-0.2) k/uL PT (9.0-12.0) sec INR (<1.2) APTT (22.0-30.0) sec VBG pH (7.31-7.41) VBG pCO2 (37-51) mmHg VBG HCO3 (24-28) mmol/L Sodium (137-145) mmol/L Potassium (3.5-5.1) mmol/L Chloride (98-107) mmol/L Carbon Dioxide (22-30) mmol/L Anion Gap mmol/L BUN (9-20) mg/dL Creatinine (0.66-1.25) mg/dL Est GFR (CKD-EPI)AfAm (>60 ml/min/1.73 sqM) Est GFR (CKD-EPI)NonAf (>60 ml/min/1.73 sqM) Glucose (74-99) mg/dL POC Glucose (mg/dL) (75-99) mg/dL POC Glu Optician ID Lactic Ac Sepsis Rflx Y Plasma Lactic Acid Mir (0.7-2.0) mmol/L Calcium (8.4-10.2) mg/dL Phosphorus (2.5-4.5) mg/dL Magnesium (1.6-2.3) mg/dL Total Bilirubin (0.2-1.3) mg/dL AST (17-59) U/L ALT (4-49) U/L Alkaline Phosphatase (38-126) U/L Troponin I (0.000-0.034) ng/mL NT-Pro-B Natriuret Pep pg/mL Total Protein (6.3-8.2) g/dL Albumin (3.5-5.0) g/dL Urine Color Urine Appearance (Clear) Urine pH (5.0-8.0) Ur Specific [place] (1.001-1.035) Urine Protein (Negative) Urine Glucose (UA) (Negative) Urine Ketones (Negative) Urine Blood (Negative) Urine Nitrite (Negative) Urine Bilirubin (Negative) Urine Urobilinogen (<2.0) mg/dL Ur Leukocyte Esterase (Negative) Urine RBC (0-5) /hpf Ur Squamous Epith Cells (0-4) /hpf Urine Mucus (None) /hpf Acetone, Qual Positive (Negative) Coronavirus (PCR) Not Detected (Not Detectd) 06/02/20 06/02/20 06/02/20 Range/Units 13:13 13:13 14:12 WBC (3.8-10.6) k/uL RBC (4.30-5.90) m/uL Hgb (13.0-17.5) gm/dL Hct (39.0-53.0) % MCV (80.0-100.0) fL MCH (25.0-35.0) pg MCHC (31.0-37.0) g/dL RDW (11.5-15.5) % Plt Count (150-450) k/uL MPV Neutrophils % % Lymphocytes % % Monocytes % % Eosinophils % % Basophils % % Neutrophils # (1.3-7.7) k/uL Lymphocytes # (1.0-4.8) k/uL Monocytes # (0-1.0) k/uL Eosinophils # (0-0.7) k/uL Basophils # (0-0.2) k/uL PT (9.0-12.0) sec INR (<1.2) APTT (22.0-30.0) sec VBG pH 7.07 L* (7.31-7.41) VBG pCO2 22 L (37-51) mmHg VBG HCO3 6 L* (24-28) mmol/L Sodium (137-145) mmol/L Potassium (3.5-5.1) mmol/L Chloride (98-107) mmol/L Carbon Dioxide (22-30) mmol/L Anion Gap mmol/L BUN (9-20) mg/dL Creatinine (0.66-1.25) mg/dL Est GFR (CKD-EPI)AfAm (>60 ml/min/1.73 sqM) Est GFR (CKD-EPI)NonAf (>60 ml/min/1.73 sqM) Glucose (74-99) mg/dL POC Glucose (mg/dL) 273 H (75-99) mg/dL POC Glu Optician ID Lindsay Hester Lactic Ac Sepsis Rflx Plasma Lactic Acid Mir (0.7-2.0) mmol/L Calcium (8.4-10.2) mg/dL Phosphorus (2.5-4.5) mg/dL Magnesium (1.6-2.3) mg/dL Total Bilirubin (0.2-1.3) mg/dL AST (17-59) U/L ALT (4-49) U/L Alkaline Phosphatase (38-126) U/L Troponin I (0.000-0.034) ng/mL NT-Pro-B Natriuret Pep pg/mL Total Protein (6.3-8.2) g/dL Albumin (3.5-5.0) g/dL Urine Color Light Yellow Urine Appearance Clear (Clear) Urine pH 5.5 (5.0-8.0) Ur Specific [place] 1.023 (1.001-1.035) Urine Protein 1+ H (Negative) Urine Glucose (UA) 4+ H (Negative) Urine Ketones 4+ H (Negative) Urine Blood Small H (Negative) Urine Nitrite Negative (Negative) Urine Bilirubin Negative (Negative) Urine Urobilinogen <2.0 (<2.0) mg/dL Ur Leukocyte Esterase Negative (Negative) Urine RBC 1 (0-5) /hpf Ur Squamous Epith Cells <1 (0-4) /hpf Urine Mucus Rare H (None) /hpf Acetone, Qual (Negative) Coronavirus (PCR) (Not Detectd) 06/02/20 06/02/20 06/02/20 Range/Units 15:10 15:25 15:25 WBC (3.8-10.6) k/uL RBC (4.30-5.90) m/uL Hgb (13.0-17.5) gm/dL Hct (39.0-53.0) % MCV (80.0-100.0) fL MCH (25.0-35.0) pg MCHC (31.0-37.0) g/dL RDW (11.5-15.5) % Plt Count (150-450) k/uL MPV Neutrophils % % Lymphocytes % % Monocytes % % Eosinophils % % Basophils % % Neutrophils # (1.3-7.7) k/uL Lymphocytes # (1.0-4.8) k/uL Monocytes # (0-1.0) k/uL Eosinophils # (0-0.7) k/uL Basophils # (0-0.2) k/uL PT (9.0-12.0) sec INR (<1.2) APTT (22.0-30.0) sec VBG pH (7.31-7.41) VBG pCO2 (37-51) mmHg VBG HCO3 (24-28) mmol/L Sodium 136 L (137-145) mmol/L Potassium 4.3 (3.5-5.1) mmol/L Chloride 106 (98-107) mmol/L Carbon Dioxide <5 L* (22-30) mmol/L Anion Gap mmol/L BUN 46 H (9-20) mg/dL Creatinine 1.32 H (0.66-1.25) mg/dL Est GFR (CKD-EPI)AfAm 65 (>60 ml/min/1.73 sqM) Est GFR (CKD-EPI)NonAf 56 (>60 ml/min/1.73 sqM) Glucose 208 H (74-99) mg/dL POC Glucose (mg/dL) 245 H (75-99) mg/dL POC Glu Optician ID Lindsay Hester Lactic Ac Sepsis Rflx Plasma Lactic Acid Mir 2.0 (0.7-2.0) mmol/L Calcium (8.4-10.2) mg/dL Phosphorus 2.9 (2.5-4.5) mg/dL Magnesium (1.6-2.3) mg/dL Total Bilirubin (0.2-1.3) mg/dL AST (17-59) U/L ALT (4-49) U/L Alkaline Phosphatase (38-126) U/L Troponin I (0.000-0.034) ng/mL NT-Pro-B Natriuret Pep pg/mL Total Protein (6.3-8.2) g/dL Albumin (3.5-5.0) g/dL Urine Color Urine Appearance (Clear) Urine pH (5.0-8.0) Ur Specific [place] (1.001-1.035) Urine Protein (Negative) Urine Glucose (UA) (Negative) Urine Ketones (Negative) Urine Blood (Negative) Urine Nitrite (Negative) Urine Bilirubin (Negative) Urine Urobilinogen (<2.0) mg/dL Ur Leukocyte Esterase (Negative) Urine RBC (0-5) /hpf Ur Squamous Epith Cells (0-4) /hpf Urine Mucus (None) /hpf Acetone, Qual (Negative) Coronavirus (PCR) (Not Detectd) 06/02/20 06/02/20 Range/Units 15:25 16:04 WBC (3.8-10.6) k/uL RBC (4.30-5.90) m/uL Hgb (13.0-17.5) gm/dL Hct (39.0-53.0) % MCV (80.0-100.0) fL MCH (25.0-35.0) pg MCHC (31.0-37.0) g/dL RDW (11.5-15.5) % Plt Count (150-450) k/uL MPV Neutrophils % % Lymphocytes % % Monocytes % % Eosinophils % % Basophils % % Neutrophils # (1.3-7.7) k/uL Lymphocytes # (1.0-4.8) k/uL Monocytes # (0-1.0) k/uL Eosinophils # (0-0.7) k/uL Basophils # (0-0.2) k/uL PT (9.0-12.0) sec INR (<1.2) APTT (22.0-30.0) sec VBG pH (7.31-7.41) VBG pCO2 (37-51) mmHg VBG HCO3 (24-28) mmol/L Sodium (137-145) mmol/L Potassium (3.5-5.1) mmol/L Chloride (98-107) mmol/L Carbon Dioxide (22-30) mmol/L Anion Gap mmol/L BUN (9-20) mg/dL Creatinine (0.66-1.25) mg/dL Est GFR (CKD-EPI)AfAm (>60 ml/min/1.73 sqM) Est GFR (CKD-EPI)NonAf (>60 ml/min/1.73 sqM) Glucose (74-99) mg/dL POC Glucose (mg/dL) 290 H (75-99) mg/dL POC Glu Optician ID Hester, Lindsay Lactic Ac Sepsis Rflx Plasma Lactic Acid Mir (0.7-2.0) mmol/L Calcium (8.4-10.2) mg/dL Phosphorus (2.5-4.5) mg/dL Magnesium (1.6-2.3) mg/dL Total Bilirubin (0.2-1.3) mg/dL AST (17-59) U/L ALT (4-49) U/L Alkaline Phosphatase (38-126) U/L Troponin I 0.044 H* (0.000-0.034) ng/mL NT-Pro-B Natriuret Pep pg/mL Total Protein (6.3-8.2) g/dL Albumin (3.5-5.0) g/dL Urine Color Urine Appearance (Clear) Urine pH (5.0-8.0) Ur Specific [place] (1.001-1.035) Urine Protein (Negative) Urine Glucose (UA) (Negative) Urine Ketones (Negative) Urine Blood (Negative) Urine Nitrite (Negative) Urine Bilirubin (Negative) Urine Urobilinogen (<2.0) mg/dL Ur Leukocyte Esterase (Negative) Urine RBC (0-5) /hpf Ur Squamous Epith Cells (0-4) /hpf Urine Mucus (None) /hpf Acetone, Qual (Negative) Coronavirus (PCR) (Not Detectd) Critical Care Time Critical Care Time: Yes Total Critical Care Time: 35 <Con Cordero - Last Filed: 06/02/20 14:24> Critical Care Time: Total 35 minutes of critical, using if she develops patient in the past medical history, discuss case with Dr. Vila, Dr. Roper. I did order labs, CT, x- ray. Patient found to be in DKA. Patient started on IV fluid bolus with 200 and also per hour, insulin drip. Patient will be admitted for further managemen t treatment. (Con Cordero) Disposition Is patient prescribed a controlled substance at d/c from ED?: No Time of Disposition: 14:25 <Con Cordero - Last Filed: 06/02/20 14:24> <Kristy Rolel - Last Filed: 06/05/20 14:03> Clinical Impression: DKA (diabetic ketoacidoses), Pulmonary emboli, Elevated troponin Disposition: ADMITTED IP TO THIS HOSP Condition: Good
[2020-06-02 12:13] LABS: Basophils % (A) 0 %; Eosinophils # (A) 0.1 k/uL (0-0.7); Eosinophils % (A) 1 %; HCT 54.4 % (39.0-53.0); Lymphocytes # (A) 0.6 k/uL (1.0-4.8); Lymphocytes % (A) 6 %; MCH 29.6 pg (25.0-35.0); MCHC 33.1 g/dL (31.0-37.0); MCV 89.3 fL (80.0-100.0); Mean Platelet Volume 7.6; Monocytes # (A) 0.4 k/uL (0-1.0); Monocytes % (A) 3 %; Neutrophils # (A) 9.8 k/uL (1.3-7.7); Neutrophils % (A) 90 %; Platelet Count 247 k/uL (150-450); RBC 6.09 m/uL (4.30-5.90)
[2020-06-02 12:20] LABS: ALT 19 U/L (4-49); AST 29 U/L (17-59); African American GFR (CKD) 56 (>60 ml/min/1.73 sqM); Alkaline Phosphatase 81 U/L (38-126); Blood Urea Nitrogen 46 mg/dL (9-20); Calcium 9.4 mg/dL (8.4-10.2); Chloride 103 mmol/L (98-107); Glucose 287 mg/dL (74-99); Non-African American GFR(CKD) 48 (>60 ml/min/1.73 sqM); Potassium 5.1 mmol/L (3.5-5.1); Sodium 132 mmol/L (137-145); Total Protein 8.2 g/dL (6.3-8.2)
[2020-06-02 12:26] LABS: INR 0.9 (<1.2); Partial Thromboplastin Time 23.3 sec (22.0-30.0); Prothrombin Time 9.7 sec (9.0-12.0)
[2020-06-02 12:28] LABS: Carbon Dioxide <5 mmol/L (22-30)
[2020-06-02] MEDS ORDERED: SODIUM CHLORIDE 0.9% 1,000 ML IV STA (12:29)
--- NOTE | 2020-06-02 12:47 | XR ---
EXAMINATION TYPE: XR chest 2V DATE OF EXAM: 06/02/2020 COMPARISON: 05/12/2020 HISTORY: Shortness of breath TECHNIQUE: Frontal and lateral views of the chest are obtained. FINDINGS: Scattered senescent parenchymal changes noted. Hyperinflation compatible with COPD. No evidence for infiltrate. No evidence for atelectasis. Heart size is stable. Mediastinal structures are stable and grossly unremarkable. No evidence for hilar prominence. Degenerative changes dorsal spine. IMPRESSION: 1. No evidence for acute pulmonary disease.
[2020-06-02] MEDS ORDERED: SODIUM CHLORIDE 0.9% 1,000 ML IV ONE ×2 (12:54→16:34)
[2020-06-02 13:28] LABS: VBG PH 7.07 (7.31-7.41)
[2020-06-02] MEDS ORDERED: SODIUM CHLORIDE 0.9% 1,000 ML IV SCH ×3 (13:30→16:45)
[2020-06-02] MEDS: INSULIN REGULAR 100 UNIT in SODIUM CHLORIDE 0.9% 100 ML IV SCH (14:16)
[2020-06-02 14:23] LABS: Glucose,Whole Blood 273 mg/dL (75-99)
[2020-06-02] MEDS: D5-0.45% NACL WITH KCL 20MEQ/L 1,000 ML IV SCH ×2 (14:26→20:45)
[2020-06-02 14:48] LABS: Appearance,Urine Clear (Clear); Bilirubin,Urine Negative (Negative); Blood,Urine Small (Negative); Color,Urine Light Yellow; Glucose,Urine (UA) 4+ (Negative); Leukocyte Esterase,Urine Negative (Negative); Mucus,Urine Rare /hpf; Nitrite,Urine Negative (Negative); PH, Urine 5.5 (5.0-8.0); Protein,Urine 1+ (Negative); RBC,Urine 1 /hpf (0-5); Specific Gravity,Urine 1.023 (1.001-1.035); Squamous Epithelial Cell,Urine <1 /hpf (0-4); Urobilinogen,Urine <2.0 mg/dL (<2.0)
[2020-06-02 14:55] LABS: Ketones,Urine 4+ (Negative)
[2020-06-02 15:17] LABS: Glucose,Whole Blood 245 mg/dL (75-99)
[2020-06-02 15:53] LABS: African American GFR (CKD) 65 (>60 ml/min/1.73 sqM); Blood Urea Nitrogen 46 mg/dL (9-20); Chloride 106 mmol/L (98-107); Glucose 208 mg/dL (74-99); Non-African American GFR(CKD) 56 (>60 ml/min/1.73 sqM); Phosphorus 2.9 mg/dL (2.5-4.5); Potassium 4.3 mmol/L (3.5-5.1); Sodium 136 mmol/L (137-145)
[2020-06-02 16:02] LABS: Carbon Dioxide <5 mmol/L (22-30)
[2020-06-02 16:16] LABS: Glucose,Whole Blood 290 mg/dL (75-99)
[2020-06-02] MEDS ORDERED: Potassium Replacement Protocol 1 EACH MISC MISCELLANE PRN (16:34)
[2020-06-02] MEDS ORDERED: Magnesium Replacement Protocol 1 EACH MISC MISCELLANE PRN (16:34)
[2020-06-02] MEDS ORDERED: ACETAMINOPHEN TAB 325 MG TAB PO PRN (16:36)
[2020-06-02] MEDS ORDERED: ONDANSETRON 4 MG/2 ML VIAL IVP PRN (16:36)
--- NOTE | 2020-06-02 16:45 | P.HPIM ---
History of Present Illness H&P Date: 06/02/20 Chief Complaint: Shortness of breath This is a 64-year-old male with complex past medical history noted below who presented to the emergency room with worsening shortness of breath and tachycardia. Patient said that his symptoms started couple of weeks ago and is being getting progressively worse. He was recently diagnosed with PE and was started on anticoagulation with Eliquis. Today, patient said that his heart was beating very fast and he was very tired. He also admits to very poor by mouth intake for the last few days. He denies any nausea or vomiting. No abdominal pain. He was evaluated in the emergency room and was found to have evidence of DKA. He will be admitted to the hospital for further management. Review of Systems Review of system: 14 points review of systems were obtained and were negative except to what were mentioned in the HPI. Past Medical History Past Medical History: Atrial Fibrillation, Diabetes Mellitus, Deep Vein Thrombosis (DVT), Hyperlipidemia, Supraventricular Tachycardia (SVT) History of Any Multi-Drug Resistant Organisms: None Reported Past Surgical History: Bariatric Surgery, Cholecystectomy Past Anesthesia/Blood Transfusion Reactions: No Reported Reaction Past Psychological History: No Psychological Hx Reported Smoking Status: Current every day smoker Past Alcohol Use History: Rare Past Drug Use History: None Reported - Past Family History Father Family Medical History: AICD/Pacemaker, Diabetes Mellitus Mother Additional Family Medical History / Comment(s): at age 67 from systemic cancer Brother(s) Additional Family Medical History / Comment(s): brother had a DVT Medications and Allergies Home Medications Medication Instructions Recorded Confirmed Type Atorvastatin [Lipitor] 20 mg PO DAILY 05/12/20 06/02/20 History Fish Oil/Dha/Epa [Fish Oil 1,200 2 cap PO BID 05/12/20 06/02/20 History mg Fish Oil] Vitamin D3(Unknown Dose) 1 tab PO DAILY 05/12/20 06/02/20 History Apixaban [Eliquis] 5 mg PO BID #70 tab 05/13/20 06/02/20 Rx Empagliflozin [Jardiance] 25 mg PO DAILY 06/02/20 06/02/20 History Allergies Allergy/AdvReac Type Severity Reaction Status Date / Time No Known Allergies Allergy Verified 06/02/20 13:28 Physical Exam Vitals: Vital Signs Temp Pulse Resp BP Pulse Ox 06/02/20 15:38 146 H 18 103/70 97 06/02/20 14:13 131 H 20 125/77 98 06/02/20 13:26 138 H 22 119/69 97 06/02/20 12:34 144 H 18 120/87 97 06/02/20 11:34 97.8 F 144 H 20 115/66 97 Intake and Output 06/02/20 06/02/20 06/02/20 06:59 14:59 22:59 Intake Total 10.08 Balance 10.08 Intake: Intake, IV Titration 10.08 Amount Insulin Regular 100 unit 10.08 In Sodium Chloride 0.9% 100 ml @ 0.05 UNITS/KG/HR 5.498 mls/hr IV .[id number] [facility] Rx#:[id number] Other: Weight 108.862 kg General: The patient is awake and alert, in no distress Eye: there is normal conjunctiva bilaterally. Neck: The neck is supple, there is no JVD. Cardiovascular: Normal S1-S2, no S3-S4, no murmurs. Respiratory: Lungs clear to auscultation bilaterally Gastrointestinal: Abdomen is soft, nontender Musculoskeletal: There is no pedal edema. Neurological:. Speech is normal. Skin: Skin is warm and dry Results CBC & Chem 7: 06/02/20 11:52 06/02/20 15:25 Labs: Abnormal Lab Results - Last 24 Hours (Table) 06/02/20 06/02/20 06/02/20 Range/Units 11:52 11:52 11:52 WBC 11.0 H (3.8-10.6) k/uL RBC 6.09 H (4.30-5.90) m/uL Hgb 18.0 H D (13.0-17.5) gm/dL Hct 54.4 H (39.0-53.0) % Neutrophils # 9.8 H (1.3-7.7) k/uL Lymphocytes # 0.6 L (1.0-4.8) k/uL VBG pH (7.31-7.41) VBG pCO2 (37-51) mmHg VBG HCO3 (24-28) mmol/L Sodium 132 L (137-145) mmol/L Carbon Dioxide <5 L* (22-30) mmol/L BUN 46 H (9-20) mg/dL Creatinine 1.50 H (0.66-1.25) mg/dL Glucose 287 H (74-99) mg/dL POC Glucose (mg/dL) (75-99) mg/dL Plasma Lactic Acid Mir 2.1 H* (0.7-2.0) mmol/L Magnesium 3.0 H (1.6-2.3) mg/dL Troponin I (0.000-0.034) ng/mL Urine Protein (Negative) Urine Glucose (UA) (Negative) Urine Ketones (Negative) Urine Blood (Negative) Urine Mucus (None) /hpf 06/02/20 06/02/20 06/02/20 Range/Units 11:52 13:13 13:13 WBC (3.8-10.6) k/uL RBC (4.30-5.90) m/uL Hgb (13.0-17.5) gm/dL Hct (39.0-53.0) % Neutrophils # (1.3-7.7) k/uL Lymphocytes # (1.0-4.8) k/uL VBG pH 7.07 L* (7.31-7.41) VBG pCO2 22 L (37-51) mmHg VBG HCO3 6 L* (24-28) mmol/L Sodium (137-145) mmol/L Carbon Dioxide (22-30) mmol/L BUN (9-20) mg/dL Creatinine (0.66-1.25) mg/dL Glucose (74-99) mg/dL POC Glucose (mg/dL) (75-99) mg/dL Plasma Lactic Acid Mir (0.7-2.0) mmol/L Magnesium (1.6-2.3) mg/dL Troponin I 0.039 H* (0.000-0.034) ng/mL Urine Protein 1+ H (Negative) Urine Glucose (UA) 4+ H (Negative) Urine Ketones 4+ H (Negative) Urine Blood Small H (Negative) Urine Mucus Rare H (None) /hpf 06/02/20 06/02/20 06/02/20 Range/Units 14:12 15:10 15:25 WBC (3.8-10.6) k/uL RBC (4.30-5.90) m/uL Hgb (13.0-17.5) gm/dL Hct (39.0-53.0) % Neutrophils # (1.3-7.7) k/uL Lymphocytes # (1.0-4.8) k/uL VBG pH (7.31-7.41) VBG pCO2 (37-51) mmHg VBG HCO3 (24-28) mmol/L Sodium 136 L (137-145) mmol/L Carbon Dioxide <5 L* (22-30) mmol/L BUN 46 H (9-20) mg/dL Creatinine 1.32 H (0.66-1.25) mg/dL Glucose 208 H (74-99) mg/dL POC Glucose (mg/dL) 273 H 245 H (75-99) mg/dL Plasma Lactic Acid Mir (0.7-2.0) mmol/L Magnesium (1.6-2.3) mg/dL Troponin I (0.000-0.034) ng/mL Urine Protein (Negative) Urine Glucose (UA) (Negative) Urine Ketones (Negative) Urine Blood (Negative) Urine Mucus (None) /hpf 06/02/20 Range/Units 16:04 WBC (3.8-10.6) k/uL RBC (4.30-5.90) m/uL Hgb (13.0-17.5) gm/dL Hct (39.0-53.0) % Neutrophils # (1.3-7.7) k/uL Lymphocytes # (1.0-4.8) k/uL VBG pH (7.31-7.41) VBG pCO2 (37-51) mmHg VBG HCO3 (24-28) mmol/L Sodium (137-145) mmol/L Carbon Dioxide (22-30) mmol/L BUN (9-20) mg/dL Creatinine (0.66-1.25) mg/dL Glucose (74-99) mg/dL POC Glucose (mg/dL) 290 H (75-99) mg/dL Plasma Lactic Acid Mir (0.7-2.0) mmol/L Magnesium (1.6-2.3) mg/dL Troponin I (0.000-0.034) ng/mL Urine Protein (Negative) Urine Glucose (UA) (Negative) Urine Ketones (Negative) Urine Blood (Negative) Urine Mucus (None) /hpf Assessment and Plan Assessment: This is a 64-year-old male with past medical history noted below who presented to the hospital with tachycardia and shortness of breath. Patient was evaluated in the ER and will be admitted to the hospital for further management of his medical problems noted below. 1. DKA: Started on DKA protocol. Aggressive IV fluid hydration and insulin drip. Monitor lab work every 4 hours. Patient denies any flulike symptoms. Co vid19 screen negative. Urinalysis unremarkable. 2. Severe metabolic acidosis 3. Troponin elevation, patient denies any chest pain. 12-lead EKG shows sinus tachycardia with heart rate of 140. Most likely non-thrombotic troponin leak. Repeat troponin pending. 4. Sinus tachycardia, attributed to dehydration and severe DKA. Continue telemetry monitoring 5. 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 Uncontrolled type 2 diabetes, A1c 12.5% last month. Patient is not on insulin at home. He would definitely need insulin prior to discharge. 7. GI prophylaxis with IV Protonix Patient will be admitted to the intensive care unit. I ordered a third liter of IV fluid bolus with normal saline.
[2020-06-02] MEDS ORDERED: INSULIN REGULAR 100 UNIT in SODIUM CHLORIDE 0.9% 100 ML IV SCH (17:00)
[2020-06-02 17:18] LABS: Glucose,Whole Blood 187 mg/dL (75-99)
[2020-06-02] MEDS: PANTOPRAZOLE 40 MG/10 ML VIAL IVP SCH (17:19)
[2020-06-02 18:15] LABS: Glucose,Whole Blood 149 mg/dL (75-99)
[2020-06-02 19:10] LABS: Glucose,Whole Blood 159 mg/dL (75-99)
--- NOTE | 2020-06-02 19:28 | P.CNPUL ---
History of Present Illness Consult date: 06/02/20 Chief complaint: severe metabolic acidosis, tachycardia and shortness of breath History of present illness: This is a 54-year-old male patient was recently hospitalized for an unprovoked DVT of the right lower extremity and bilateral pulmonary embolism. The patient was discharged home on Eliquis. During the same hospitalization, the patient was noted to have a poorly controlled ventricular HbA1c of 12.5. The patient will a jardiance. He wanted to follow up with his primary care physician. He comes in today with shortness of breath and tachycardia and tachypnea and the patient was quite dehydrated and his blood work was consistent with severe metabolic acidosis secondary to DKA. Specifically he was acidotic and his serum bicarbonate was less than 5 and the patient severe anion gap metabolic acidosis. His glucose was at 287. Lactic acid was at 2.0. Positive acetones. Urine glucose is +4, urine ketone was +4. Patient was started on IV fluids. He received a total of 3 L of normal saline and currently is on D5 half-normal running at 150 mL an hour and insulin drip is running at 3.2 units an hour. His still tachycardic with a sinus tachycardia and a heart rate of 154. Saturation 99% on room air oxygen. He is colder 19th screening came back negative. His chest x-ray was within normal limits. He is much more awake and alert. He is following commands at this point in time. Note that he was taken metformin also on outpatient basis. the patient states that he hasn't been eating for the past 5 days and he was having minimal amount of liquid intake. He was having excessive urination. Review of Systems Constitutional: Reports fatigue, Reports weakness Eyes: denies as per HPI, denies blurred vision, denies bulging eye, denies decreased vision, denies diplopia, denies discharge, denies dry eye, denies irritation, denies itching, denies pain, denies photophobia, denies loss of peripheral vision, denies loss of vision, denies tunnel vision/blind spots Ears, nose, mouth and throat: Denies headache, Denies sore throat Breasts: absent: as per HPI, gynecomastia Cardiovascular: Reports dyspnea on exertion Respiratory: Reports dyspnea Gastrointestinal: Reports loss of appetite Genitourinary: Reports as per HPI Musculoskeletal: Reports as per HPI Musculoskeletal: absent: ankle pain, ankle stiffness, ankle swelling Integumentary: Reports as per HPI Neurological: Reports as per HPI, Reports weakness Psychiatric: Reports as per HPI Endocrine: Reports excessive thirst, Reports fatigue, Reports high blood sugars, Reports polyuria Hematologic/Lymphatic: Reports as per HPI Allergic/Immunologic: Reports as per HPI Past Medical History Past Medical History: Atrial Fibrillation, Diabetes Mellitus, Deep Vein Thrombosis (DVT), Hyperlipidemia, Pulmonary Embolus (PE), Supraventricular Tachycardia (SVT) History of Any Multi-Drug Resistant Organisms: None Reported Past Surgical History: Bariatric Surgery, Cholecystectomy Past Anesthesia/Blood Transfusion Reactions: No Reported Reaction Past Psychological History: No Psychological Hx Reported Smoking Status: Current every day smoker Past Alcohol Use History: Rare Past Drug Use History: None Reported - Past Family History Father Family Medical History: AICD/Pacemaker, Diabetes Mellitus Mother Additional Family Medical History / Comment(s): at age 67 from systemic cancer Brother(s) Additional Family Medical History / Comment(s): brother had a DVT Medications and Allergies Home Medications Medication Instructions Recorded Confirmed Type Atorvastatin [Lipitor] 20 mg PO DAILY 05/12/20 06/02/20 History Fish Oil/Dha/Epa [Fish Oil 1,200 2 cap PO BID 05/12/20 06/02/20 History mg Fish Oil] Vitamin D3(Unknown Dose) 1 tab PO DAILY 05/12/20 06/02/20 History Apixaban [Eliquis] 5 mg PO BID #70 tab 05/13/20 06/02/20 Rx Empagliflozin [Jardiance] 25 mg PO DAILY 06/02/20 06/02/20 History Allergies Allergy/AdvReac Type Severity Reaction Status Date / Time No Known Allergies Allergy Verified 06/02/20 13:28 Physical Exam Vitals: Vital Signs Temp Pulse Resp BP Pulse Ox 06/02/20 18:53 154 H 18 100/68 98 06/02/20 17:19 148 H 18 103/69 99 06/02/20 15:38 146 H 18 103/70 97 06/02/20 14:13 131 H 20 125/77 98 06/02/20 13:26 138 H 22 119/69 97 06/02/20 12:34 144 H 18 120/87 97 06/02/20 11:34 97.8 F 144 H 20 115/66 97 Intake and Output 06/02/20 06/02/20 06/02/20 06:59 14:59 22:59 Intake Total 23.493 Balance 23.493 Intake: Intake, IV Titration 23.493 Amount Insulin Regular 100 unit 23.493 In Sodium Chloride 0.9% 100 ml @ 0.05 UNITS/KG/HR 5.498 mls/hr IV .[id number] [facility] Rx#:[id number] Other: Weight 108.862 kg The patient appeared well nourished and normally developed. Vital signs as documented. Head exam is unremarkable. No scleral icterus or corneal arcus noted. Neck is without jugular venous distension, thyromegaly, or carotid bruits. Carotid upstrokes are brisk bilaterally. Lungs are clear to auscultation and percussion. Cardiac exam reveals the PMI to be normally sized and situated. Rhythm is regular. First and second heart sounds normal. No murmurs, rubs or gallops. Abdominal exam reveals normal bowel sounds, no masses, no organomegaly and no aortic enlargement. Extremities are nonedematous and both femoral and pedal pulses are normal.skinNeurologically, the patient is awake and alert and the patient does not have any focal neurological deficit. Cranial nerves are essentially intact. is a bit lethargic and slow in answering questions. Nevertheless is awake and alert.Examination of the skin revealed no evidence of significant rashes, suspicious appearing nevi or other concerning lesions. Results - Laboratory Findings CBC and BMP: 06/02/20 11:52 06/02/20 15:25 PT/INR, D-dimer PT 9.7 sec (9.0-12.0) 06/02/20 11:52 INR 0.9 (<1.2) 06/02/20 11:52 Abnormal lab findings: Abnormal Labs 06/02/20 06/02/20 06/02/20 11:52 11:52 11:52 WBC 11.0 H RBC 6.09 H Hgb 18.0 H D Hct 54.4 H Neutrophils # 9.8 H Lymphocytes # 0.6 L VBG pH VBG pCO2 VBG HCO3 Sodium 132 L Carbon Dioxide <5 L* BUN 46 H Creatinine 1.50 H Glucose 287 H POC Glucose (mg/dL) Plasma Lactic Acid Mir 2.1 H* Magnesium 3.0 H Troponin I Urine Protein Urine Glucose (UA) Urine Ketones Urine Blood Urine Mucus 06/02/20 06/02/20 06/02/20 11:52 13:13 13:13 WBC RBC Hgb Hct Neutrophils # Lymphocytes # VBG pH 7.07 L* VBG pCO2 22 L VBG HCO3 6 L* Sodium Carbon Dioxide BUN Creatinine Glucose POC Glucose (mg/dL) Plasma Lactic Acid Mir Magnesium Troponin I 0.039 H* Urine Protein 1+ H Urine Glucose (UA) 4+ H Urine Ketones 4+ H Urine Blood Small H Urine Mucus Rare H 06/02/20 06/02/20 06/02/20 14:12 15:10 15:25 WBC RBC Hgb Hct Neutrophils # Lymphocytes # VBG pH VBG pCO2 VBG HCO3 Sodium 136 L Carbon Dioxide <5 L* BUN 46 H Creatinine 1.32 H Glucose 208 H POC Glucose (mg/dL) 273 H 245 H Plasma Lactic Acid Mir Magnesium Troponin I Urine Protein Urine Glucose (UA) Urine Ketones Urine Blood Urine Mucus 06/02/20 06/02/20 06/02/20 15:25 16:04 17:14 WBC RBC Hgb Hct Neutrophils # Lymphocytes # VBG pH VBG pCO2 VBG HCO3 Sodium Carbon Dioxide BUN Creatinine Glucose POC Glucose (mg/dL) 290 H 187 H Plasma Lactic Acid Mir Magnesium Troponin I 0.044 H* Urine Protein Urine Glucose (UA) Urine Ketones Urine Blood Urine Mucus 06/02/20 06/02/20 18:09 19:08 WBC RBC Hgb Hct Neutrophils # Lymphocytes # VBG pH VBG pCO2 VBG HCO3 Sodium Carbon Dioxide BUN Creatinine Glucose POC Glucose (mg/dL) 149 H 159 H Plasma Lactic Acid Mir Magnesium Troponin I Urine Protein Urine Glucose (UA) Urine Ketones Urine Blood Urine Mucus - Diagnostic Findings Chest x-ray: image reviewed Assessment and Plan Plan: 1 diabetic ketoacidosis. Despite the mildly elevated blood sugars, the patient has severe metabolic acidosis with positive ketones and the presentation is consistent with DKA specially the patient was having poor control and the blood sugars HbA1c was around 12.5, compliance with all medications as questionable at this point in time. The patient was also taking metformin and Jardiance, and the patient's lactic acid level are not elevated at this point in time. 2 sinus tachycardia 3 recent hospitalization foracute bilateral pulmonary embolism with a right lower extremity DVT involving the popliteal vein, unprovoked, the patient was taken Eliquis on outpatient basis 4 hyperlipidemia 5 family history of a DVT 6 chronic smoker Plan continue D5 half-normal at the rate of 150 mL an hour Insulin drip at 3 units an hour per protocol Check electrolytes every 4 hours and monitor the anion gap metabolic acidosis blood sugars every 1 hour Transfer the patient in intensive care units A total of 3 L already being given to the patient Continue oral anticoagulation with Eliquis we'll continue to follow
[2020-06-02 20:04] LABS: Glucose,Whole Blood 122 mg/dL (75-99)
[2020-06-02 20:08] LABS: Calcium 8.5 mg/dL (8.4-10.2); Phosphorus 1.9 mg/dL (2.5-4.5)
[2020-06-02] MEDS: APIXABAN 5 MG TAB PO SCH (21:00)
[2020-06-02 21:05] LABS: Glucose,Whole Blood 106 mg/dL (75-99)
[2020-06-02 22:08] LABS: Glucose,Whole Blood 129 mg/dL (75-99)
[2020-06-02 23:08] LABS: Glucose,Whole Blood 160 mg/dL (75-99)
[2020-06-03 00:17] LABS: Glucose,Whole Blood 163 mg/dL (75-99)
[2020-06-03 01:31] LABS: Glucose,Whole Blood 159 mg/dL (75-99)
[2020-06-03 01:51] LABS: African American GFR (CKD) >90 (>60 ml/min/1.73 sqM); Anion Gap 11 mmol/L; Blood Urea Nitrogen 38 mg/dL (9-20); Carbon Dioxide 11 mmol/L (22-30); Chloride 111 mmol/L (98-107); Glucose 137 mg/dL (74-99); Non-African American GFR(CKD) 88 (>60 ml/min/1.73 sqM); Phosphorus 1.7 mg/dL (2.5-4.5); Sodium 133 mmol/L (137-145)
[2020-06-03 02:06] LABS: Glucose,Whole Blood 161 mg/dL (75-99)
[2020-06-03 02:08] LABS: Potassium 4.5 mmol/L (3.5-5.1)
[2020-06-03] MEDS ORDERED: Phosphorus Replacement Protoco 1 EACH MISC MISCELLANE PRN (02:13)
[2020-06-03] MEDS: POTASSIUM PHOSPHATE 10 MMOL in SODIUM CHLORIDE 0.9% 250 ML IV SCH ×2 (02:56→05:32)
[2020-06-03 03:11] LABS: Glucose,Whole Blood 173 mg/dL (75-99)
[2020-06-03] MEDS: D5-0.45% NACL WITH KCL 20MEQ/L 1,000 ML IV SCH ×3 (03:38→17:08)
[2020-06-03 04:20] LABS: Basophils % (A) 0 %; Eosinophils # (A) 0.2 k/uL (0-0.7); Eosinophils % (A) 2 %; HCT 43.5 % (39.0-53.0); Lymphocytes # (A) 1.3 k/uL (1.0-4.8); Lymphocytes % (A) 10 %; MCH 28.6 pg (25.0-35.0); MCHC 32.6 g/dL (31.0-37.0); MCV 87.8 fL (80.0-100.0); Mean Platelet Volume 7.2; Monocytes # (A) 0.6 k/uL (0-1.0); Monocytes % (A) 5 %; Neutrophils # (A) 10.4 k/uL (1.3-7.7); Neutrophils % (A) 82 %; Platelet Count 171 k/uL (150-450); RBC 4.96 m/uL (4.30-5.90); WBC 12.7 k/uL (3.8-10.6)
[2020-06-03 04:21] LABS: HGB 14.2 gm/dL (13.0-17.5)
[2020-06-03 04:24] LABS: African American GFR (CKD) >90 (>60 ml/min/1.73 sqM); Anion Gap 13 mmol/L; Blood Urea Nitrogen 36 mg/dL (9-20); Calcium 8.2 mg/dL (8.4-10.2); Chloride 110 mmol/L (98-107); Glucose 170 mg/dL (74-99); Magnesium 2.6 mg/dL (1.6-2.3); Non-African American GFR(CKD) 90 (>60 ml/min/1.73 sqM); Phosphorus 1.6 mg/dL (2.5-4.5); Potassium 4.1 mmol/L (3.5-5.1); Sodium 132 mmol/L (137-145)
[2020-06-03 04:30] LABS: Glucose,Whole Blood 167 mg/dL (75-99)
[2020-06-03 04:33] LABS: Carbon Dioxide 9 mmol/L (22-30)
[2020-06-03 05:23] LABS: Glucose,Whole Blood 212 mg/dL (75-99)
[2020-06-03 06:21] LABS: Glucose,Whole Blood 185 mg/dL (75-99)
[2020-06-03 07:16] LABS: Glucose,Whole Blood 198 mg/dL (75-99)
[2020-06-03 08:15] LABS: Glucose,Whole Blood 184 mg/dL (75-99)
[2020-06-03 08:34] LABS: VBG PH 7.25 (7.31-7.41)
[2020-06-03] MEDS: APIXABAN 5 MG TAB PO SCH ×2 (08:57→21:37)
[2020-06-03] MEDS: PANTOPRAZOLE 40 MG/10 ML VIAL IVP SCH (08:57)
[2020-06-03 09:01] LABS: African American GFR (CKD) >90 (>60 ml/min/1.73 sqM); Anion Gap 11 mmol/L; Blood Urea Nitrogen 29 mg/dL (9-20); Carbon Dioxide 10 mmol/L (22-30); Chloride 112 mmol/L (98-107); Glucose 207 mg/dL (74-99); Non-African American GFR(CKD) >90 (>60 ml/min/1.73 sqM); Phosphorus 1.8 mg/dL (2.5-4.5); Potassium 4.3 mmol/L (3.5-5.1); Sodium 133 mmol/L (137-145)
[2020-06-03 09:20] LABS: Glucose,Whole Blood 220 mg/dL (75-99)
--- NOTE | 2020-06-03 09:45 | P.PN ---
Subjective Progress Note Date: 06/03/20 Patient is awake and alert. He denies any abdominal pain or nausea. He continued to feel weak. Objective - Vital Signs Vital signs: Vital Signs Temp 98.5 F 06/03/20 00:49 Pulse 94 06/03/20 08:17 Resp 18 06/03/20 08:17 BP 127/64 06/03/20 08:17 Pulse Ox 100 06/03/20 08:17 Intake & Output 06/02/20 06/03/20 06/03/20 18:59 06:59 18:59 Intake Total 23.493 8.721 Balance 23.493 8.721 Weight 108.862 kg Intake: Intake, IV Titration 23.493 8.721 Amount Insulin Regular 100 unit 23.493 8.721 In Sodium Chloride 0.9% 100 ml @ 0.05 UNITS/KG/HR 5.498 mls/hr IV .[id number] [facility] Rx#:[id number] Other: Voiding Method Urinal - Exam General: The patient is awake and alert, in no distress Eye: there is normal conjunctiva bilaterally. Neck: The neck is supple, there is no JVD. Cardiovascular: Normal S1-S2, no S3-S4, no murmurs. Respiratory: Lungs clear to auscultation bilaterally Gastrointestinal: Abdomen is soft, nontender Musculoskeletal: There is no pedal edema. Neurological:. Speech is normal. Skin: Skin is warm and dry - Labs CBC & Chem 7: 06/03/20 03:41 06/03/20 08:15 Labs: Abnormal Lab Results - Last 24 Hours (Table) 06/02/20 06/02/20 06/02/20 Range/Units 11:52 11:52 11:52 WBC 11.0 H (3.8-10.6) k/uL RBC 6.09 H (4.30-5.90) m/uL Hgb 18.0 H D (13.0-17.5) gm/dL Hct 54.4 H (39.0-53.0) % Neutrophils # 9.8 H (1.3-7.7) k/uL Lymphocytes # 0.6 L (1.0-4.8) k/uL VBG pH (7.31-7.41) VBG pCO2 (37-51) mmHg VBG HCO3 (24-28) mmol/L Sodium 132 L (137-145) mmol/L Chloride (98-107) mmol/L Carbon Dioxide <5 L* (22-30) mmol/L BUN 46 H (9-20) mg/dL Creatinine 1.50 H (0.66-1.25) mg/dL Glucose 287 H (74-99) mg/dL POC Glucose (mg/dL) (75-99) mg/dL Plasma Lactic Acid Mir 2.1 H* (0.7-2.0) mmol/L Calcium (8.4-10.2) mg/dL Phosphorus (2.5-4.5) mg/dL Magnesium 3.0 H (1.6-2.3) mg/dL Troponin I (0.000-0.034) ng/mL Urine Protein (Negative) Urine Glucose (UA) (Negative) Urine Ketones (Negative) Urine Blood (Negative) Urine Mucus (None) /hpf 06/02/20 06/02/20 06/02/20 Range/Units 11:52 13:13 13:13 WBC (3.8-10.6) k/uL RBC (4.30-5.90) m/uL Hgb (13.0-17.5) gm/dL Hct (39.0-53.0) % Neutrophils # (1.3-7.7) k/uL Lymphocytes # (1.0-4.8) k/uL VBG pH 7.07 L* (7.31-7.41) VBG pCO2 22 L (37-51) mmHg VBG HCO3 6 L* (24-28) mmol/L Sodium (137-145) mmol/L Chloride (98-107) mmol/L Carbon Dioxide (22-30) mmol/L BUN (9-20) mg/dL Creatinine (0.66-1.25) mg/dL Glucose (74-99) mg/dL POC Glucose (mg/dL) (75-99) mg/dL Plasma Lactic Acid Mir (0.7-2.0) mmol/L Calcium (8.4-10.2) mg/dL Phosphorus (2.5-4.5) mg/dL Magnesium (1.6-2.3) mg/dL Troponin I 0.039 H* (0.000-0.034) ng/mL Urine Protein 1+ H (Negative) Urine Glucose (UA) 4+ H (Negative) Urine Ketones 4+ H (Negative) Urine Blood Small H (Negative) Urine Mucus Rare H (None) /hpf 06/02/20 06/02/20 06/02/20 Range/Units 14:12 15:10 15:25 WBC (3.8-10.6) k/uL RBC (4.30-5.90) m/uL Hgb (13.0-17.5) gm/dL Hct (39.0-53.0) % Neutrophils # (1.3-7.7) k/uL Lymphocytes # (1.0-4.8) k/uL VBG pH (7.31-7.41) VBG pCO2 (37-51) mmHg VBG HCO3 (24-28) mmol/L Sodium 136 L (137-145) mmol/L Chloride (98-107) mmol/L Carbon Dioxide <5 L* (22-30) mmol/L BUN 46 H (9-20) mg/dL Creatinine 1.32 H (0.66-1.25) mg/dL Glucose 208 H (74-99) mg/dL POC Glucose (mg/dL) 273 H 245 H (75-99) mg/dL Plasma Lactic Acid Mir (0.7-2.0) mmol/L Calcium (8.4-10.2) mg/dL Phosphorus (2.5-4.5) mg/dL Magnesium (1.6-2.3) mg/dL Troponin I (0.000-0.034) ng/mL Urine Protein (Negative) Urine Glucose (UA) (Negative) Urine Ketones (Negative) Urine Blood (Negative) Urine Mucus (None) /hpf 06/02/20 06/02/20 06/02/20 Range/Units 15:25 16:04 17:14 WBC (3.8-10.6) k/uL RBC (4.30-5.90) m/uL Hgb (13.0-17.5) gm/dL Hct (39.0-53.0) % Neutrophils # (1.3-7.7) k/uL Lymphocytes # (1.0-4.8) k/uL VBG pH (7.31-7.41) VBG pCO2 (37-51) mmHg VBG HCO3 (24-28) mmol/L Sodium (137-145) mmol/L Chloride (98-107) mmol/L Carbon Dioxide (22-30) mmol/L BUN (9-20) mg/dL Creatinine (0.66-1.25) mg/dL Glucose (74-99) mg/dL POC Glucose (mg/dL) 290 H 187 H (75-99) mg/dL Plasma Lactic Acid Mir (0.7-2.0) mmol/L Calcium (8.4-10.2) mg/dL Phosphorus (2.5-4.5) mg/dL Magnesium (1.6-2.3) mg/dL Troponin I 0.044 H* (0.000-0.034) ng/mL Urine Protein (Negative) Urine Glucose (UA) (Negative) Urine Ketones (Negative) Urine Blood (Negative) Urine Mucus (None) /hpf 06/02/20 06/02/20 06/02/20 Range/Units 18:09 19:08 19:24 WBC (3.8-10.6) k/uL RBC (4.30-5.90) m/uL Hgb (13.0-17.5) gm/dL Hct (39.0-53.0) % Neutrophils # (1.3-7.7) k/uL Lymphocytes # (1.0-4.8) k/uL VBG pH (7.31-7.41) VBG pCO2 (37-51) mmHg VBG HCO3 (24-28) mmol/L Sodium 134 L (137-145) mmol/L Chloride 110 H (98-107) mmol/L Carbon Dioxide 8 L* (22-30) mmol/L BUN 42 H (9-20) mg/dL Creatinine (0.66-1.25) mg/dL Glucose 111 H (74-99) mg/dL POC Glucose (mg/dL) 149 H 159 H (75-99) mg/dL Plasma Lactic Acid Mir (0.7-2.0) mmol/L Calcium (8.4-10.2) mg/dL Phosphorus 1.9 L (2.5-4.5) mg/dL Magnesium (1.6-2.3) mg/dL Troponin I (0.000-0.034) ng/mL Urine Protein (Negative) Urine Glucose (UA) (Negative) Urine Ketones (Negative) Urine Blood (Negative) Urine Mucus (None) /hpf 06/02/20 06/02/20 06/02/20 Range/Units 20:02 21:03 22:04 WBC (3.8-10.6) k/uL RBC (4.30-5.90) m/uL Hgb (13.0-17.5) gm/dL Hct (39.0-53.0) % Neutrophils # (1.3-7.7) k/uL Lymphocytes # (1.0-4.8) k/uL VBG pH (7.31-7.41) VBG pCO2 (37-51) mmHg VBG HCO3 (24-28) mmol/L Sodium (137-145) mmol/L Chloride (98-107) mmol/L Carbon Dioxide (22-30) mmol/L BUN (9-20) mg/dL Creatinine (0.66-1.25) mg/dL Glucose (74-99) mg/dL POC Glucose (mg/dL) 122 H 106 H 129 H (75-99) mg/dL Plasma Lactic Acid Mir (0.7-2.0) mmol/L Calcium (8.4-10.2) mg/dL Phosphorus (2.5-4.5) mg/dL Magnesium (1.6-2.3) mg/dL Troponin I (0.000-0.034) ng/mL Urine Protein (Negative) Urine Glucose (UA) (Negative) Urine Ketones (Negative) Urine Blood (Negative) Urine Mucus (None) /hpf 06/02/20 06/03/20 06/03/20 Range/Units 23:01 00:05 00:52 WBC (3.8-10.6) k/uL RBC (4.30-5.90) m/uL Hgb (13.0-17.5) gm/dL Hct (39.0-53.0) % Neutrophils # (1.3-7.7) k/uL Lymphocytes # (1.0-4.8) k/uL VBG pH (7.31-7.41) VBG pCO2 (37-51) mmHg VBG HCO3 (24-28) mmol/L Sodium 133 L (137-145) mmol/L Chloride 111 H (98-107) mmol/L Carbon Dioxide 11 L (22-30) mmol/L BUN 38 H (9-20) mg/dL Creatinine (0.66-1.25) mg/dL Glucose 137 H (74-99) mg/dL POC Glucose (mg/dL) 160 H 163 H (75-99) mg/dL Plasma Lactic Acid Mir (0.7-2.0) mmol/L Calcium (8.4-10.2) mg/dL Phosphorus 1.7 L (2.5-4.5) mg/dL Magnesium (1.6-2.3) mg/dL Troponin I (0.000-0.034) ng/mL Urine Protein (Negative) Urine Glucose (UA) (Negative) Urine Ketones (Negative) Urine Blood (Negative) Urine Mucus (None) /hpf 06/03/20 06/03/20 06/03/20 Range/Units 01:28 02:04 03:10 WBC (3.8-10.6) k/uL RBC (4.30-5.90) m/uL Hgb (13.0-17.5) gm/dL Hct (39.0-53.0) % Neutrophils # (1.3-7.7) k/uL Lymphocytes # (1.0-4.8) k/uL VBG pH (7.31-7.41) VBG pCO2 (37-51) mmHg VBG HCO3 (24-28) mmol/L Sodium (137-145) mmol/L Chloride (98-107) mmol/L Carbon Dioxide (22-30) mmol/L BUN (9-20) mg/dL Creatinine (0.66-1.25) mg/dL Glucose (74-99) mg/dL POC Glucose (mg/dL) 159 H 161 H 173 H (75-99) mg/dL Plasma Lactic Acid Mir (0.7-2.0) mmol/L Calcium (8.4-10.2) mg/dL Phosphorus (2.5-4.5) mg/dL Magnesium (1.6-2.3) mg/dL Troponin I (0.000-0.034) ng/mL Urine Protein (Negative) Urine Glucose (UA) (Negative) Urine Ketones (Negative) Urine Blood (Negative) Urine Mucus (None) /hpf 06/03/20 06/03/20 06/03/20 Range/Units 03:41 03:41 04:28 WBC 12.7 H (3.8-10.6) k/uL RBC (4.30-5.90) m/uL Hgb (13.0-17.5) gm/dL Hct (39.0-53.0) % Neutrophils # 10.4 H (1.3-7.7) k/uL Lymphocytes # (1.0-4.8) k/uL VBG pH (7.31-7.41) VBG pCO2 (37-51) mmHg VBG HCO3 (24-28) mmol/L Sodium 132 L (137-145) mmol/L Chloride 110 H (98-107) mmol/L Carbon Dioxide 9 L* (22-30) mmol/L BUN 36 H (9-20) mg/dL Creatinine (0.66-1.25) mg/dL Glucose 170 H (74-99) mg/dL POC Glucose (mg/dL) 167 H (75-99) mg/dL Plasma Lactic Acid Mir (0.7-2.0) mmol/L Calcium 8.2 L (8.4-10.2) mg/dL Phosphorus 1.6 L (2.5-4.5) mg/dL Magnesium 2.6 H (1.6-2.3) mg/dL Troponin I (0.000-0.034) ng/mL Urine Protein (Negative) Urine Glucose (UA) (Negative) Urine Ketones (Negative) Urine Blood (Negative) Urine Mucus (None) /hpf 06/03/20 06/03/20 06/03/20 Range/Units 05:21 06:11 07:14 WBC (3.8-10.6) k/uL RBC (4.30-5.90) m/uL Hgb (13.0-17.5) gm/dL Hct (39.0-53.0) % Neutrophils # (1.3-7.7) k/uL Lymphocytes # (1.0-4.8) k/uL VBG pH (7.31-7.41) VBG pCO2 (37-51) mmHg VBG HCO3 (24-28) mmol/L Sodium (137-145) mmol/L Chloride (98-107) mmol/L Carbon Dioxide (22-30) mmol/L BUN (9-20) mg/dL Creatinine (0.66-1.25) mg/dL Glucose (74-99) mg/dL POC Glucose (mg/dL) 212 H 185 H 198 H (75-99) mg/dL Plasma Lactic Acid Mir (0.7-2.0) mmol/L Calcium (8.4-10.2) mg/dL Phosphorus (2.5-4.5) mg/dL Magnesium (1.6-2.3) mg/dL Troponin I (0.000-0.034) ng/mL Urine Protein (Negative) Urine Glucose (UA) (Negative) Urine Ketones (Negative) Urine Blood (Negative) Urine Mucus (None) /hpf 06/03/20 06/03/20 06/03/20 Range/Units 08:12 08:13 08:15 WBC (3.8-10.6) k/uL RBC (4.30-5.90) m/uL Hgb (13.0-17.5) gm/dL Hct (39.0-53.0) % Neutrophils # (1.3-7.7) k/uL Lymphocytes # (1.0-4.8) k/uL VBG pH 7.25 L (7.31-7.41) VBG pCO2 24 L (37-51) mmHg VBG HCO3 10 L (24-28) mmol/L Sodium 133 L (137-145) mmol/L Chloride 112 H (98-107) mmol/L Carbon Dioxide 10 L (22-30) mmol/L BUN 29 H (9-20) mg/dL Creatinine (0.66-1.25) mg/dL Glucose 207 H (74-99) mg/dL POC Glucose (mg/dL) 184 H (75-99) mg/dL Plasma Lactic Acid Mir (0.7-2.0) mmol/L Calcium 8.0 L (8.4-10.2) mg/dL Phosphorus 1.8 L (2.5-4.5) mg/dL Magnesium (1.6-2.3) mg/dL Troponin I (0.000-0.034) ng/mL Urine Protein (Negative) Urine Glucose (UA) (Negative) Urine Ketones (Negative) Urine Blood (Negative) Urine Mucus (None) /hpf 11/19/20 Range/Units 09:18 WBC (3.8-10.6) k/uL RBC (4.30-5.90) m/uL Hgb (13.0-17.5) gm/dL Hct (39.0-53.0) % Neutrophils # (1.3-7.7) k/uL Lymphocytes # (1.0-4.8) k/uL VBG pH (7.31-7.41) VBG pCO2 (37-51) mmHg VBG HCO3 (24-28) mmol/L Sodium (137-145) mmol/L Chloride (98-107) mmol/L Carbon Dioxide (22-30) mmol/L BUN (9-20) mg/dL Creatinine (0.66-1.25) mg/dL Glucose (74-99) mg/dL POC Glucose (mg/dL) 220 H (75-99) mg/dL Plasma Lactic Acid Mir (0.7-2.0) mmol/L Calcium (8.4-10.2) mg/dL Phosphorus (2.5-4.5) mg/dL Magnesium (1.6-2.3) mg/dL Troponin I (0.000-0.034) ng/mL Urine Protein (Negative) Urine Glucose (UA) (Negative) Urine Ketones (Negative) Urine Blood (Negative) Urine Mucus (None) /hpf Assessment and Plan Assessment: This is a 64-year-old male with past medical history noted below who presented to the hospital with tachycardia and shortness of breath. Patient was evaluated in the ER and will be admitted to the hospital for further management of his medical problems noted below. 1. DKA: Started on DKA protocol. Aggressive IV fluid hydration and insulin drip. Monitor lab work every 4 hours. Patient denies any flulike symptoms. Covid19 screen negative. Urinalysis unremarkable. 2. Severe metabolic acidosis, improving gradually 3. Troponin elevation, patient denies any chest pain. 12-lead EKG shows sinus tachycardia with heart rate of 140. Most likely non-thrombotic troponin leak. Repeat troponin stable 4. Sinus tachycardia, attributed to dehydration and severe DKA. Resolved with aggressive IV fluid hydration. Continue telemetry monitoring 5. 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 Uncontrolled type 2 diabetes, A1c 12.5% last month. Patient is not on insulin at home. He would definitely need insulin prior to discharge. 7. GI prophylaxis with IV Protonix Continue ICU care. Monitor lab work. Transition to subcu insulin when clinically stable
[2020-06-03 10:37] LABS: Glucose,Whole Blood 195 mg/dL (75-99)
[2020-06-03 11:18] LABS: Glucose,Whole Blood 210 mg/dL (75-99)
[2020-06-03] MEDS: ATORVASTATIN 20 MG TAB PO SCH (11:28)
[2020-06-03 12:23] LABS: Glucose,Whole Blood 179 mg/dL (75-99)
[2020-06-03 13:31] LABS: Glucose,Whole Blood 260 mg/dL (75-99)
[2020-06-03 13:43] LABS: African American GFR (CKD) >90 (>60 ml/min/1.73 sqM); Anion Gap 10 mmol/L; Blood Urea Nitrogen 27 mg/dL (9-20); Calcium 8.1 mg/dL (8.4-10.2); Carbon Dioxide 13 mmol/L (22-30); Chloride 111 mmol/L (98-107); Glucose 196 mg/dL (74-99); Non-African American GFR(CKD) >90 (>60 ml/min/1.73 sqM); Phosphorus 1.2 mg/dL (2.5-4.5); Potassium 4.2 mmol/L (3.5-5.1); Sodium 134 mmol/L (137-145)
[2020-06-03 14:31] LABS: Glucose,Whole Blood 182 mg/dL (75-99)
[2020-06-03 15:21] LABS: Glucose,Whole Blood 185 mg/dL (75-99)
--- NOTE | 2020-06-03 16:00 | P.PN ---
Subjective Progress Note Date: 06/03/20 On today's evaluation, the patient is less tachycardic. The patient is awake and alert and improved compared to yesterday. Nevertheless, he continues to have a low serum bicarbonate despite some improvement in the anion gap metabolic acidosis. This morning, the patient has a insulin drip which is running at 0.4 units an hour. The patient is also on D5 half-normal saline at 150 mL an hour. His anion gap 10. Serum bicarbs at 10. He is on 2 L of oxygen by nasal cannula. Cardiac rhythm is sinus. Objective - Vital Signs Vital signs: Vital Signs Temp 98.5 F 06/03/20 00:49 Pulse 71 06/03/20 15:00 Resp 18 06/03/20 15:00 BP 142/68 06/03/20 15:00 Pulse Ox 98 06/03/20 15:00 Intake & Output 06/02/20 06/03/20 06/03/20 18:59 06:59 18:59 Intake Total 23.493 8.721 6.147 Balance 23.493 8.721 6.147 Weight 108.862 kg Intake: Intake, IV Titration 23.493 8.721 6.147 Amount Insulin Regular 100 unit 23.493 8.721 6.147 In Sodium Chloride 0.9% 100 ml @ 0.05 UNITS/KG/HR 5.498 mls/hr IV .[id number] [facility] Rx#:[id number] Other: Voiding Method Urinal - Exam The patient appeared well nourished and normally developed. Vital signs as documented. Head exam is unremarkable. No scleral icterus or corneal arcus note d. Neck is without jugular venous distension, thyromegaly, or carotid bruits. Carotid upstrokes are brisk bilaterally. Lungs are clear to auscultation and percussion. Cardiac exam reveals the PMI to be normally sized and situated. Rhythm is regular. First and second heart sounds normal. No murmurs, rubs or gallops. Abdominal exam reveals normal bowel sounds, no masses, no organomegaly and no aortic enlargement. Extremities are nonedematous and both femoral and pedal pulses are normal.Examination of the skin revealed no evidence of significant rashes, suspicious appearing nevi or other concerning lesions.Neurologically, the patient is awake and alert and the patient does not have any focal neurological deficit. Cranial nerves are essentially intact. - Labs CBC & Chem 7: 06/03/20 03:41 06/03/20 12:40 Labs: Abnormal Lab Results - Last 24 Hours (Table) 06/02/20 06/02/20 06/02/20 Range/Units 15:25 15:25 16:04 WBC (3.8-10.6) k/uL Neutrophils # (1.3-7.7) k/uL VBG pH (7.31-7.41) VBG pCO2 (37-51) mmHg VBG HCO3 (24-28) mmol/L Sodium 136 L (137-145) mmol/L Chloride (98-107) mmol/L Carbon Dioxide <5 L* (22-30) mmol/L BUN 46 H (9-20) mg/dL Creatinine 1.32 H (0.66-1.25) mg/dL Glucose 208 H (74-99) mg/dL POC Glucose (mg/dL) 290 H (75-99) mg/dL Calcium (8.4-10.2) mg/dL Phosphorus (2.5-4.5) mg/dL Magnesium (1.6-2.3) mg/dL Troponin I 0.044 H* (0.000-0.034) ng/mL 06/02/20 06/02/20 06/02/20 Range/Units 17:14 18:09 19:08 WBC (3.8-10.6) k/uL Neutrophils # (1.3-7.7) k/uL VBG pH (7.31-7.41) VBG pCO2 (37-51) mmHg VBG HCO3 (24-28) mmol/L Sodium (137-145) mmol/L Chloride (98-107) mmol/L Carbon Dioxide (22-30) mmol/L BUN (9-20) mg/dL Creatinine (0.66-1.25) mg/dL Glucose (74-99) mg/dL POC Glucose (mg/dL) 187 H 149 H 159 H (75-99) mg/dL Calcium (8.4-10.2) mg/dL Phosphorus (2.5-4.5) mg/dL Magnesium (1.6-2.3) mg/dL Troponin I (0.000-0.034) ng/mL 06/02/20 06/02/20 06/02/20 Range/Units 19:24 20:02 21:03 WBC (3.8-10.6) k/uL Neutrophils # (1.3-7.7) k/uL VBG pH (7.31-7.41) VBG pCO2 (37-51) mmHg VBG HCO3 (24-28) mmol/L Sodium 134 L (137-145) mmol/L Chloride 110 H (98-107) mmol/L Carbon Dioxide 8 L* (22-30) mmol/L BUN 42 H (9-20) mg/dL Creatinine (0.66-1.25) mg/dL Glucose 111 H (74-99) mg/dL POC Glucose (mg/dL) 122 H 106 H (75-99) mg/dL Calcium (8.4-10.2) mg/dL Phosphorus 1.9 L (2.5-4.5) mg/dL Magnesium (1.6-2.3) mg/dL Troponin I (0.000-0.034) ng/mL 06/02/20 06/02/20 06/03/20 Range/Units 22:04 23:01 00:05 WBC (3.8-10.6) k/uL Neutrophils # (1.3-7.7) k/uL VBG pH (7.31-7.41) VBG pCO2 (37-51) mmHg VBG HCO3 (24-28) mmol/L Sodium (137-145) mmol/L Chloride (98-107) mmol/L Carbon Dioxide (22-30) mmol/L BUN (9-20) mg/dL Creatinine (0.66-1.25) mg/dL Glucose (74-99) mg/dL POC Glucose (mg/dL) 129 H 160 H 163 H (75-99) mg/dL Calcium (8.4-10.2) mg/dL Phosphorus (2.5-4.5) mg/dL Magnesium (1.6-2.3) mg/dL Troponin I (0.000-0.034) ng/mL 06/03/20 06/03/20 06/03/20 Range/Units 00:52 01:28 02:04 WBC (3.8-10.6) k/uL Neutrophils # (1.3-7.7) k/uL VBG pH (7.31-7.41) VBG pCO2 (37-51) mmHg VBG HCO3 (24-28) mmol/L Sodium 133 L (137-145) mmol/L Chloride 111 H (98-107) mmol/L Carbon Dioxide 11 L (22-30) mmol/L BUN 38 H (9-20) mg/dL Creatinine (0.66-1.25) mg/dL Glucose 137 H (74-99) mg/dL POC Glucose (mg/dL) 159 H 161 H (75-99) mg/dL Calcium (8.4-10.2) mg/dL Phosphorus 1.7 L (2.5-4.5) mg/dL Magnesium (1.6-2.3) mg/dL Troponin I (0.000-0.034) ng/mL 06/03/20 06/03/20 06/03/20 Range/Units 03:10 03:41 03:41 WBC 12.7 H (3.8-10.6) k/uL Neutrophils # 10.4 H (1.3-7.7) k/uL VBG pH (7.31-7.41) VBG pCO2 (37-51) mmHg VBG HCO3 (24-28) mmol/L Sodium 132 L (137-145) mmol/L Chloride 110 H (98-107) mmol/L Carbon Dioxide 9 L* (22-30) mmol/L BUN 36 H (9-20) mg/dL Creatinine (0.66-1.25) mg/dL Glucose 170 H (74-99) mg/dL POC Glucose (mg/dL) 173 H (75-99) mg/dL Calcium 8.2 L (8.4-10.2) mg/dL Phosphorus 1.6 L (2.5-4.5) mg/dL Magnesium 2.6 H (1.6-2.3) mg/dL Troponin I (0.000-0.034) ng/mL 06/03/20 06/03/20 06/03/20 Range/Units 04:28 05:21 06:11 WBC (3.8-10.6) k/uL Neutrophils # (1.3-7.7) k/uL VBG pH (7.31-7.41) VBG pCO2 (37-51) mmHg VBG HCO3 (24-28) mmol/L Sodium (137-145) mmol/L Chloride (98-107) mmol/L Carbon Dioxide (22-30) mmol/L BUN (9-20) mg/dL Creatinine (0.66-1.25) mg/dL Glucose (74-99) mg/dL POC Glucose (mg/dL) 167 H 212 H 185 H (75-99) mg/dL Calcium (8.4-10.2) mg/dL Phosphorus (2.5-4.5) mg/dL Magnesium (1.6-2.3) mg/dL Troponin I (0.000-0.034) ng/mL 06/03/20 06/03/20 06/03/20 Range/Units 07:14 08:12 08:13 WBC (3.8-10.6) k/uL Neutrophils # (1.3-7.7) k/uL VBG pH 7.25 L (7.31-7.41) VBG pCO2 24 L (37-51) mmHg VBG HCO3 10 L (24-28) mmol/L Sodium (137-145) mmol/L Chloride (98-107) mmol/L Carbon Dioxide (22-30) mmol/L BUN (9-20) mg/dL Creatinine (0.66-1.25) mg/dL Glucose (74-99) mg/dL POC Glucose (mg/dL) 198 H 184 H (75-99) mg/dL Calcium (8.4-10.2) mg/dL Phosphorus (2.5-4.5) mg/dL Magnesium (1.6-2.3) mg/dL Troponin I (0.000-0.034) ng/mL 06/03/20 06/03/20 06/03/20 Range/Units 08:15 09:18 10:18 WBC (3.8-10.6) k/uL Neutrophils # (1.3-7.7) k/uL VBG pH (7.31-7.41) VBG pCO2 (37-51) mmHg VBG HCO3 (24-28) mmol/L Sodium 133 L (137-145) mmol/L Chloride 112 H (98-107) mmol/L Carbon Dioxide 10 L (22-30) mmol/L BUN 29 H (9-20) mg/dL Creatinine (0.66-1.25) mg/dL Glucose 207 H (74-99) mg/dL POC Glucose (mg/dL) 220 H 195 H (75-99) mg/dL Calcium 8.0 L (8.4-10.2) mg/dL Phosphorus 1.8 L (2.5-4.5) mg/dL Magnesium (1.6-2.3) mg/dL Troponin I (0.000-0.034) ng/mL 06/03/20 06/03/20 06/03/20 Range/Units 11:15 12:21 12:40 WBC (3.8-10.6) k/uL Neutrophils # (1.3-7.7) k/uL VBG pH (7.31-7.41) VBG pCO2 (37-51) mmHg VBG HCO3 (24-28) mmol/L Sodium 134 L (137-145) mmol/L Chloride 111 H (98-107) mmol/L Carbon Dioxide 13 L (22-30) mmol/L BUN 27 H (9-20) mg/dL Creatinine (0.66-1.25) mg/dL Glucose 196 H (74-99) mg/dL POC Glucose (mg/dL) 210 H 179 H (75-99) mg/dL Calcium 8.1 L (8.4-10.2) mg/dL Phosphorus 1.2 L (2.5-4.5) mg/dL Magnesium (1.6-2.3) mg/dL Troponin I (0.000-0.034) ng/mL 06/03/20 06/03/20 06/03/20 Range/Units 13:20 14:21 15:18 WBC (3.8-10.6) k/uL Neutrophils # (1.3-7.7) k/uL VBG pH (7.31-7.41) VBG pCO2 (37-51) mmHg VBG HCO3 (24-28) mmol/L Sodium (137-145) mmol/L Chloride (98-107) mmol/L Carbon Dioxide (22-30) mmol/L BUN (9-20) mg/dL Creatinine (0.66-1.25) mg/dL Glucose (74-99) mg/dL POC Glucose (mg/dL) 260 H 182 H 185 H (75-99) mg/dL Calcium (8.4-10.2) mg/dL Phosphorus (2.5-4.5) mg/dL Magnesium (1.6-2.3) mg/dL Troponin I (0.000-0.034) ng/mL Assessment and Plan Plan: 1 diabetic ketoacidosis. Despite the mildly elevated blood sugars, the patient has severe metabolic acidosis with positive ketones and the presentation is consistent with DKA specially the patient was having poor control and the blood sugars HbA1c was around 12.5, compliance with all medications as questionable at this point in time. The patient was also taking metformin and Jardiance, and the patient's lactic acid level are not elevated at this point in time. 2 sinus tachycardia, improved 3 recent hospitalization for acute bilateral pulmonary embolism with a right lower extremity DVT involving the popliteal vein, unprovoked, the patient was taken Eliquis on outpatient basis 4 hyperlipidemia 5 family history of a DVT 6 chronic smoker Plan continue D5 half-normal at the rate of 150 mL an hour and continue the insulin drip at 0.4 units an hour. Monitor serum bicarb level. Continue the insulin drip as long as the serum bicarbonate remains less than 20 Check electrolytes every 4 hours and monitor the anion gap metabolic acidosis blood sugars every 1 hour The patient has been adequately resuscitated IV fluids and his sinus tachycardia is improved Continue oral anticoagulation with Eliquis we'll continue to follow
[2020-06-03 16:19] LABS: Glucose,Whole Blood 250 mg/dL (75-99)
[2020-06-03 17:04] LABS: African American GFR (CKD) >90 (>60 ml/min/1.73 sqM); Anion Gap 5 mmol/L; Blood Urea Nitrogen 24 mg/dL (9-20); Calcium 8.4 mg/dL (8.4-10.2); Carbon Dioxide 17 mmol/L (22-30); Chloride 114 mmol/L (98-107); Glucose 144 mg/dL (74-99); Non-African American GFR(CKD) >90 (>60 ml/min/1.73 sqM); Potassium 3.7 mmol/L (3.5-5.1); Sodium 136 mmol/L (137-145)
[2020-06-03 17:13] LABS: Phosphorus 0.9 mg/dL (2.5-4.5)
[2020-06-03 17:26] LABS: Glucose,Whole Blood 160 mg/dL (75-99)
[2020-06-03 18:28] LABS: Glucose,Whole Blood 144 mg/dL (75-99)
[2020-06-03] MEDS: SODIUM PHOSPHATE 10 MMOL in SODIUM CHLORIDE 0.9% 250 ML IVPB SCH ×3 (18:47→22:34)
[2020-06-03] MEDS: INSULIN DETEMIR (LEVEMIR) 100 UNIT/ML SYR SQ SCH (19:29)
[2020-06-03 19:33] LABS: Glucose,Whole Blood 192 mg/dL (75-99)
[2020-06-03 20:49] LABS: Glucose,Whole Blood 124 mg/dL (75-99)
[2020-06-03 21:10] LABS: African American GFR (CKD) >90 (>60 ml/min/1.73 sqM); Anion Gap 8 mmol/L; Blood Urea Nitrogen 22 mg/dL (9-20); Calcium 8.4 mg/dL (8.4-10.2); Carbon Dioxide 16 mmol/L (22-30); Chloride 112 mmol/L (98-107); Glucose 128 mg/dL (74-99); Non-African American GFR(CKD) >90 (>60 ml/min/1.73 sqM); Phosphorus 2.2 mg/dL (2.5-4.5); Potassium 3.9 mmol/L (3.5-5.1); Sodium 136 mmol/L (137-145)
[2020-06-03] MEDS: INSULIN REGULAR 100 UNIT in SODIUM CHLORIDE 0.9% 100 ML IV SCH (21:33)
[2020-06-04 06:37] LABS: Basophils % (A) 0 %; Eosinophils # (A) 0.1 k/uL (0-0.7); Eosinophils % (A) 1 %; HGB 13.1 gm/dL (13.0-17.5); Lymphocytes # (A) 1.6 k/uL (1.0-4.8); Lymphocytes % (A) 23 %; MCHC 34.4 g/dL (31.0-37.0); MCV 87.1 fL (80.0-100.0); Mean Platelet Volume 7.4; Monocytes # (A) 0.4 k/uL (0-1.0); Monocytes % (A) 5 %; Neutrophils # (A) 4.9 k/uL (1.3-7.7); Neutrophils % (A) 70 %; Platelet Count 137 k/uL (150-450); RBC 4.36 m/uL (4.30-5.90); RDW 13.6 % (11.5-15.5); WBC 7.1 k/uL (3.8-10.6)
[2020-06-04 07:07] LABS: Glucose,Whole Blood 93 mg/dL (75-99)
[2020-06-04] MEDS ORDERED: INSULIN ASPART (NovoLOG) 100 UNIT/ML VIAL SQ SCH (07:30)
[2020-06-04] MEDS: ATORVASTATIN 20 MG TAB PO SCH (07:55)
[2020-06-04] MEDS: INSULIN DETEMIR (LEVEMIR) 100 UNIT/ML SYR SQ SCH ×2 (07:55→22:12)
[2020-06-04] MEDS: PANTOPRAZOLE 40 MG/10 ML VIAL IVP SCH (07:55)
[2020-06-04] MEDS: APIXABAN 5 MG TAB PO SCH ×2 (07:55→22:03)
[2020-06-04 09:28] LABS: African American GFR (CKD) 107.9 (60.0-200.0); Anion Gap 9.2 mmol/L (4.00-12.00); BUN/Creat Ratio 22.5 Ratio (12.00-20.00); Calcium 8.4 mg/dL (8.7-10.3); Carbon Dioxide 18.8 mmol/L (21.6-31.8); Non-African American GFR(CKD) 93.1 (60.0-200.0); Phosphorus 1.9 mg/dL (2.4-5.1); Potassium 3.4 mmol/L (3.5-5.5)
[2020-06-04 11:41] LABS: Glucose,Whole Blood 78 mg/dL (75-99)
[2020-06-04] MEDS: INSULIN ASPART (NovoLOG) 100 UNIT/ML VIAL SQ SCH ×3 (13:03→22:04)
[2020-06-04] MEDS: SODIUM PHOSPHATE 10 MMOL in SODIUM CHLORIDE 0.9% 250 ML IVPB SCH ×2 (13:07→16:26)
[2020-06-04] MEDS: POTASSIUM CHLORIDE ER 20 MEQ TAB.ER PO SCH ×2 (13:07→14:53)
--- NOTE | 2020-06-04 15:27 | P.PN ---
Subjective Progress Note Date: 06/04/20 Principal diagnosis: On 06/04/2020 patient seen in follow-up on medical surgical floor, he is resting comfortably in bed, he is awake and alert, in no acute distress, room air pulse ox is 96%, he is afebrile, lung sounds are clear, no abdominal pain, no nausea or vomiting, patient has been transitioned to Levemir insulin, and sliding- scale, he is tolerating oral intake, today's labs have been reviewed showing anion gap of 9.2, and CO2 of 18.8, no fever or chills, white blood cell, 7.1, hemoglobin of 13.1, sodium is 137, potassium is 3.4, chloride is 109, CO2 is 18.8, BUN of 18, creatinine 0.8 Objective - Vital Signs Vital signs: Vital Signs Temp 98.4 F 06/04/20 13:00 Pulse 61 06/04/20 13:00 Resp 17 06/04/20 13:00 BP 112/60 06/04/20 13:00 Pulse Ox 96 06/04/20 13:00 Intake & Output 06/03/20 06/04/20 06/04/20 18:59 06:59 18:59 Intake Total 9.950 Balance 9.950 Weight 105.7 kg Intake: Intake, IV Titration 9.950 Amount Insulin Regular 100 unit 9.950 In Sodium Chloride 0.9% 100 ml @ 0.05 UNITS/KG/HR 5.498 mls/hr IV .[id number] [facility] Rx#:[id number] Other: Voiding Method Urinal Urinal Urinal # Voids 1 1 - Exam GENERAL EXAM: Alert, very pleasant, 64-year-old white male, on room air, and the pulse ox of 96% comfortable in no apparent distress. HEAD: Normocephalic/atraumatic. EYES: Normal reaction of pupils, equal size. Conjunctiva pink, sclera white. NOSE: Clear with pink turbinates. THROAT: No erythema or exudates. NECK: No masses, no JVD, no thyroid enlargement, no adenopathy. CHEST: No chest wall deformity. Symmetrical expansion. LUNGS: Equal air entry with no crackles, wheeze, rhonchi or dullness. CVS: Regular rate and rhythm, normal S1 and S2, no gallops, no murmurs, no rubs ABDOMEN: Soft, nontender. No hepatosplenomegaly, normal bowel sounds, no guarding or rigidity. EXTREMITIES: No clubbing, no edema, no cyanosis, 2+ pulses and upper and lower extremities. MUSCULOSKELETAL: Muscle strength and tone normal. SPINE: No scoliosis or deformity SKIN: No rashes CENTRAL NERVOUS SYSTEM: Alert and oriented -3. No focal deficits, tone is normal in all 4 extremities. PSYCHIATRIC: Alert and oriented -3. Appropriate affect. Intact judgment and insight. - Labs CBC & Chem 7: 06/04/20 05:51 06/04/20 05:51 Labs: Abnormal Lab Results - Last 24 Hours (Table) 06/03/20 06/03/20 06/03/20 Range/Units 16:16 16:41 17:12 Hct (39.0-53.0) % Plt Count (150-450) k/uL Sodium 136 L (137-145) mmol/L Potassium (3.5-5.5) mmol/L Chloride 114 H (98-107) mmol/L Carbon Dioxide 17 L (22-30) mmol/L BUN 24 H (9-20) mg/dL BUN/Creatinine Ratio (12.00-20.00) Ratio Glucose 144 H (74-99) mg/dL POC Glucose (mg/dL) 250 H 160 H (75-99) mg/dL Calcium (8.7-10.3) mg/dL Phosphorus 0.9 L* (2.5-4.5) mg/dL 06/03/20 06/03/20 06/03/20 Range/Units 18:24 19:28 20:38 Hct (39.0-53.0) % Plt Count (150-450) k/uL Sodium (137-145) mmol/L Potassium (3.5-5.5) mmol/L Chloride (98-107) mmol/L Carbon Dioxide (22-30) mmol/L BUN (9-20) mg/dL BUN/Creatinine Ratio (12.00-20.00) Ratio Glucose (74-99) mg/dL POC Glucose (mg/dL) 144 H 192 H 124 H (75-99) mg/dL Calcium (8.7-10.3) mg/dL Phosphorus (2.5-4.5) mg/dL 06/03/20 06/04/20 06/04/20 Range/Units 20:58 05:51 05:51 Hct 38.0 L (39.0-53.0) % Plt Count 137 L (150-450) k/uL Sodium 136 L (137-145) mmol/L Potassium 3.4 L (3.5-5.5) mmol/L Chloride 112 H (98-107) mmol/L Carbon Dioxide 16 L 18.8 L (22-30) mmol/L BUN 22 H (9-20) mg/dL BUN/Creatinine Ratio 22.50 H (12.00-20.00) Ratio Glucose 128 H (74-99) mg/dL POC Glucose (mg/dL) (75-99) mg/dL Calcium 8.4 L (8.7-10.3) mg/dL Phosphorus 2.2 L 1.9 L (2.5-4.5) mg/dL Assessment and Plan Plan: Assessment: 1 diabetic ketoacidosis. Despite the mildly elevated blood sugars, the patient has severe metabolic acidosis with positive ketones and the presentation is consistent with DKA specially the patient was having poor control and the blood sugars HbA1c was around 12.5, compliance with all medications as questionable at this point in time. The patient was also taking metformin and Jardiance, and the patient's lactic acid level are not elevated at this point in time. 2 sinus tachycardia, improved 3 recent hospitalization for acute bilateral pulmonary embolism with a right lower extremity DVT involving the popliteal vein, unprovoked, the patient was taken Eliquis on outpatient basis 4 hyperlipidemia 5 family history of a DVT 6 chronic smoker Plan: Patient anion gap has closed, he has been transitioned to subcutaneous insulin, he is tolerating oral intake, no nausea vomiting no abdominal pain, he is awake and alert, oriented 3, no specific complaints. No difficulty breathing, vital signs have been stable. Pulmonary/critical care service will sign off and follow on as-needed basis. Stable for discharge from our standpoint I performed a history & physical examination of the patient and discussed their management with my nurse practitioner, Kathy Arthur. I reviewed the nurse practitioner's note and agree with the documented findings and plan of care. Lung sounds are positive for clear breath sounds. The findings and the impression was discussed with the patient. I attest to the documentation by the nurse practitioner. Time with Patient: Less than 30
[2020-06-04 16:02] VITALS: BMI 35.4
[2020-06-04 17:12] LABS: Glucose,Whole Blood 58 mg/dL (75-99)
[2020-06-04 17:30] LABS: Glucose,Whole Blood 50 mg/dL (75-99)
[2020-06-04 17:49] LABS: Glucose,Whole Blood 73 mg/dL (75-99)
[2020-06-04 20:05] LABS: Glucose,Whole Blood 170 mg/dL (75-99)
[2020-06-05 00:06] VITALS: RESP 16
[2020-06-05 05:52] VITALS: BP 101/53; PULSE 55; TEMP 98
[2020-06-05 06:06] LABS: Basophils % (A) 0 %; Eosinophils # (A) 0.1 k/uL (0-0.7); Eosinophils % (A) 1 %; HCT 36.9 % (39.0-53.0); Lymphocytes # (A) 1.5 k/uL (1.0-4.8); Lymphocytes % (A) 29 %; MCH 30.1 pg (25.0-35.0); MCHC 35.1 g/dL (31.0-37.0); MCV 85.7 fL (80.0-100.0); Mean Platelet Volume 7.3; Monocytes # (A) 0.3 k/uL (0-1.0); Monocytes % (A) 5 %; Neutrophils # (A) 3.3 k/uL (1.3-7.7); Neutrophils % (A) 63 %; Platelet Count 114 k/uL (150-450); RBC 4.31 m/uL (4.30-5.90); RDW 13.5 % (11.5-15.5); WBC 5.2 k/uL (3.8-10.6)
[2020-06-05 07:22] LABS: Glucose,Whole Blood 76 mg/dL (75-99)
[2020-06-05] MEDS: INSULIN DETEMIR (LEVEMIR) 100 UNIT/ML SYR SQ SCH (07:26)
[2020-06-05] MEDS: INSULIN ASPART (NovoLOG) 100 UNIT/ML VIAL SQ SCH (07:26)
[2020-06-05] MEDS: APIXABAN 5 MG TAB PO SCH (08:50)
[2020-06-05] MEDS: ATORVASTATIN 20 MG TAB PO SCH (08:50)
--- NOTE | 2020-06-05 09:19 | P.PN ---
Subjective Progress Note Date: 06/04/20 This is a late entry progress note. Patient was seen, evaluated, and examined by me on 06/04/2020 Patient was doing fairly well. He denies any nausea or vomiting. He had an episode of hypoglycemia requiring apple juice. Objective - Vital Signs Vital signs: Vital Signs Temp 98.0 F 06/05/20 05:00 Pulse 55 L 06/05/20 05:00 Resp 16 06/05/20 05:00 BP 101/53 06/05/20 05:00 Pulse Ox 96 06/05/20 05:00 Intake & Output 06/04/20 06/05/20 06/05/20 18:59 06:59 18:59 Intake Total 700 Balance 700 Weight 105.7 kg 106.8 kg Intake: Oral 700 Other: Voiding Method Urinal # Voids 1 - Exam General: The patient is awake and alert, in no distress Eye: there is normal conjunctiva bilaterally. Neck: The neck is supple, there is no JVD. Cardiovascular: Normal S1-S2, no S3-S4, no murmurs. Respiratory: Lungs clear to auscultation bilaterally Gastrointestinal: Abdomen is soft, nontender Musculoskeletal: There is no pedal edema. Neurological:. Speech is normal. Skin: Skin is warm and dry - Labs CBC & Chem 7: 06/05/20 05:40 06/04/20 05:51 Labs: Abnormal Lab Results - Last 24 Hours (Table) 06/04/20 06/04/20 06/04/20 Range/Units 05:51 17:10 17:27 Hct (39.0-53.0) % Plt Count (150-450) k/uL Potassium 3.4 L (3.5-5.5) mmol/L Carbon Dioxide 18.8 L (21.6-31.8) mmol/L BUN/Creatinine Ratio 22.50 H (12.00-20.00) Ratio POC Glucose (mg/dL) 58 L 50 L (75-99) mg/dL Calcium 8.4 L (8.7-10.3) mg/dL Phosphorus 1.9 L (2.4-5.1) mg/dL 06/04/20 06/04/20 06/05/20 Range/Units 17:47 20:03 05:40 Hct 36.9 L (39.0-53.0) % Plt Count 114 L (150-450) k/uL Potassium (3.5-5.5) mmol/L Carbon Dioxide (21.6-31.8) mmol/L BUN/Creatinine Ratio (12.00-20.00) Ratio POC Glucose (mg/dL) 73 L 170 H (75-99) mg/dL Calcium (8.7-10.3) mg/dL Phosphorus (2.4-5.1) mg/dL Assessment and Plan Assessment: This is a 64-year-old male with past medical history noted below who presented to the hospital with tachycardia and shortness of breath. Patient was evaluated in the ER and will be admitted to the hospital for further management of his medical problems noted below. 1. DKA: Started on DKA protocol. Improved with aggressive IV fluid hydration and insulin drip. Patient denies any flulike symptoms. Covid19 screen negative. Urinalysis unremarkable. 2. Severe metabolic acidosis, resolved 3. Troponin elevation, patient denies any chest pain. 12-lead EKG shows sinus tachycardia with heart rate of 140. Most likely non-thrombotic troponin leak. Repeat troponin stable 4. Sinus tachycardia, attributed to dehydration and severe DKA. Resolved with aggressive IV fluid hydration. 5. 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 Uncontrolled type 2 diabetes, A1c 12.5% last month. Patient is not on insulin at home. Started on Levemir 10 units twice daily plus sliding scale 7. GI prophylaxis with IV Protonix
--- NOTE | 2020-06-05 09:23 | P.DS ---
Providers Date of admission: 06/02/20 16:17 Expected date of discharge: 06/05/20 Attending physician: Kristan Roper Consults: 06/02/20 18:46 Consult Physician Stat Consulting Provider: Db Gross Consult Reason/Comments: front attendant Do you want consulting provider notified?: Yes [facility] Course: This is a 64-year-old male with past medical history noted below who presented to the hospital with tachycardia and shortness of breath. Patient was evaluated in the ER and will be admitted to the hospital for further management of his medical problems noted below. 1. DKA: Started on DKA protocol. Improved with aggressive IV fluid hydration and insulin drip. Patient denies any flulike symptoms. Covid19 screen negative. Urinalysis unremarkable. 2. Severe metabolic acidosis, resolved 3. Troponin elevation, patient denies any chest pain. 12-lead EKG shows sinus tachycardia with heart rate of 140. Most likely non-thrombotic troponin leak. Repeat troponin stable 4. Sinus tachycardia, attributed to dehydration and severe DKA. Resolved with aggressive IV fluid hydration. 5. 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 Uncontrolled type 2 diabetes, A1c 12.5% last month. Patient is not on insulin at home. I advised the patient to start insulin Lantus 10 units at bedtime and metformin 500 mg twice daily. Patient appears to be sensitive to insulin. He has used insulin in the past. I recommended to check blood glucose at home 4 times a day first thing in the morning and 3 times a day before each meal. 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 Patient is on Lipitor at home. Patient will be discharged home in a stable condition. For further details about this hospitalization please refer to the electronic chart. Time spent on discharge > 30 minutes including counseling and coordination of care Patient Condition at Discharge: Fair Plan - Discharge Summary Discharge Rx Participant: No New Discharge Prescriptions: New metFORMIN HCL [Glucophage] 500 mg PO BID #60 tab Insulin Glargine,Hum.rec.anlog [Lantus Solostar] 10 unit SQ HS #4 pen Continue Fish Oil/Dha/Epa [Fish Oil 1,200 mg Fish Oil] 2 cap PO BID Atorvastatin [Lipitor] 20 mg PO DAILY Vitamin D3(Unknown Dose) 1 tab PO DAILY Apixaban [Eliquis] 5 mg PO BID #70 tab Discontinued Empagliflozin [Jardiance] 25 mg PO DAILY Discharge Medication List Atorvastatin [Lipitor] 20 mg PO DAILY 05/12/20 [History] Fish Oil/Dha/Epa [Fish Oil 1,200 mg Fish Oil] 2 cap PO BID 05/12/20 [History] Vitamin D3(Unknown Dose) 1 tab PO DAILY 05/12/20 [History] Apixaban [Eliquis] 5 mg PO BID #70 tab 05/13/20 [Rx] Insulin Glargine,Hum.rec.anlog [Lantus Solostar] 10 unit SQ HS #4 pen 06/05/20 [Rx] metFORMIN HCL [Glucophage] 500 mg PO BID #60 tab 06/05/20 [Rx] Follow up Appointment(s)/Referral(s): Char Camarena MD [Primary Care Provider] - 1-2 days Discharge Disposition: HOME SELF-CARE
[2020-06-05 09:28] LABS: African American GFR (CKD) 121.4 (60.0-200.0); Anion Gap 8.5 mmol/L (4.00-12.00); BUN/Creat Ratio 21.67 Ratio (12.00-20.00); Calcium 8.2 mg/dL (8.7-10.3); Carbon Dioxide 23.5 mmol/L (21.6-31.8); Non-African American GFR(CKD) 104.8 (60.0-200.0); Potassium 3.2 mmol/L (3.5-5.5)
--- NOTE | 2020-06-07 14:42 | CDI ---
Documentation Clarification Form Date: 06/07/20 From: Libertad Irwin Phone: If you have a question about this query, please contact Elysia Richmond Ampoule Filler at [phone] between 8am and 5pm. Admit Date: 06/02/20 Discharge Date: 06/05/20 Patient Name: Gisele Avendaño Visit Number: [id number] ATTENTION: The Clinical Documentation Specialists (CDI) and [facility] Coding Staff appreciate your assistance in clarifying documentation. Please respond to the clarification below the line at the bottom and electronically sign. The CDI & [facility] Coding staff will review the response and follow-up if needed. Please note: Queries are made part of the Legal Health Record. If you have any questions, please contact the author of this message via ITS. Dear Dr. Roper Atrial Fibrillation is documented in the past medical history in the ED note, H&P and consult note. History/Risk Factors: Diabetes, recent PE, history of DVT, SVT Clinical Indicators: Tachycardia EKG/telemetry: Sinus tachycardia with heart rate of 140 Treatment: Patient on Eliquis 5 mg PO BID In your professional opinion, can you please clarify the type of Atrial Fibrillation, if known? Chronic/Permanent Paroxysmal Persistent Other, please specify Unable to determine Paroxysmal MTDD
== END 2020-06-05 12:33 | disposition home or self-care (01) | DRG 637 ==
LOC: EC 11:14 → 3SCARD 16:17 → 2SICU 18:47 → 4SSUR 06-03 18:34 → 5NMEDONC 06-03 21:32
PROVIDERS: ADMIT Internal Medicine; ATTEND Internal Medicine
DX: E11.10 Type 2 diabetes mellitus with ketoacidosis without coma (principal); I26.99 Other pulmonary embolism without acute cor pulmonale; E11.649 Type 2 diabetes mellitus with hypoglycemia without coma; E78.5 Hyperlipidemia, unspecified; R00.0 Tachycardia, unspecified; E86.0 Dehydration; F17.200 Nicotine dependence, unspecified, uncomplicated; Z20.828 Contact with and (suspected) exposure to other viral communicable diseases; R79.89 Other specified abnormal findings of blood chemistry; Z79.01 Long term (current) use of anticoagulants; I48.0 Paroxysmal atrial fibrillation; Z79.899 Other long term (current) drug therapy; Z79.84 Long term (current) use of oral hypoglycemic drugs; Z86.718 Personal history of other venous thrombosis and embolism; Z98.84 Bariatric surgery status; Z90.49 Acquired absence of other specified parts of digestive tract; Z87.19 Personal history of other diseases of the digestive system; Z83.3 Family history of diabetes mellitus; Z82.49 Family history of ischemic heart disease and other diseases of the circulatory system; Z80.9 Family history of malignant neoplasm, unspecified
CPT/HCPCS: 36415; 71046; 80048; 80051; 80053; 81001; 82009; 82565; 82803; 82947; 83605; 83735; 83880; 84100; 84484; 84520; 85025; 85610; 85730; 87635; 93005; 96361; 96365; 96366; 96375; 96376; 99291

== ENCOUNTER → 2020-12-28 | Outpatient (CLI) | payer MEDICARE, BC ==
[2020-12-28 09:51] LABS: African American GFR (CKD) >90 (>60 ml/min/1.73 sqM); Blood Urea Nitrogen 20 mg/dL (9-20); Non-African American GFR(CKD) >90 (>60 ml/min/1.73 sqM)
--- NOTE | 2020-12-28 10:15 | US ---
EXAMINATION TYPE: US venous doppler duplex LE LT DATE OF EXAM: 12/28/2020 9:54 AM COMPARISON: 05/13/2020 CLINICAL HISTORY: I82.5Z9 DVT LOWER EXTREM., O88.219. history of DVT left leg SIDE PERFORMED: Left TECHNIQUE: The lower extremity deep venous system is examined utilizing real time linear array sonog deshaun with graded compression, doppler sonography and color-flow sonography. VESSELS IMAGED: Common Femoral Vein Deep Femoral Vein Greater Saphenous Vein * Femoral Vein Popliteal Vein (* superficial vessels) Left Leg: *positive for DVT left popliteal vein. non-occlusive. improvement from prior exam 05/13/20 IMPRESSION: Nonocclusive deep vein thrombosis of left popliteal vein, improved since prior exam.
--- NOTE | 2020-12-28 11:23 | CT ---
EXAMINATION TYPE: CT angio chest DATE OF EXAM: 12/28/2020 COMPARISON: CT chest 05/13/2020 HISTORY: Follow up PE per patient, deep venous thrombosis. CT DLP: 568.3 mGycm Automated exposure control for dose reduction was used. CONTRAST: CTA scan of the thorax is performed with IV Contrast, patient injected with 100 mL of Isovue 370, pul monary embolism protocol. MIP images are created and reviewed. 3D reconstructed images are created on an independent workstation and reviewed. FINDINGS: LUNGS: The lungs are grossly clear, there is no concerning parenchymal mass or nodule identified. T here is no pleural effusion or pneumothorax seen. The tracheobronchial tree is patent. AORTA: No additional significant abnormality is seen. MEDIASTINUM: There is satisfactory enhancement of the pulmonary artery and its branches, there is no CT evidence for pulmonary embolism. There are no greater than 1 cm hilar or mediastinal lymph nodes. No pericardial effusion is seen. Mild coronary artery calcifications are present. Previously ident ified evidence of right heart strain has resolved. OTHER: Patient is post lap band. There is thickening of the distal esophagus which is indeterminate, similar to prior exam and may be postoperative. Low density adrenal lesions are again seen and may r epresent adenomas. Patient is post cholecystectomy. IMPRESSION: RESOLUTION OF PATIENT'S PULMONARY EMBOLI
== END | disposition home or self-care (01) ==
LOC: RADCTMAIN 09:12
PROVIDERS: ATTEND Internal Medicine Hematology & Oncology
DX: I82.432 Acute embolism and thrombosis of left popliteal vein (principal); Z86.711 Personal history of pulmonary embolism
CPT/HCPCS: 82565; 84520; 93971; 71275; 36415; Q9967

== ENCOUNTER → 2021-08-09 | Outpatient (CLI) | payer MEDICARE, BC ==
--- NOTE | 2021-08-09 17:54 | US ---
EXAMINATION TYPE: US venous doppler duplex LE LT DATE OF EXAM: 08/09/2021 1:04 PM COMPARISON: 12/28/2020 CLINICAL HISTORY: 65-year-old male I82.5Z9 Chronic embolism and thrombosis. Follow up left leg DVT, p atient on blood thinners SIDE PERFORMED: Left TECHNIQUE: The lower extremity deep venous system is examined utilizing real time linear array sonog deshaun with graded compression, doppler sonography and color-flow sonography. FINDINGS: VESSELS IMAGED: Common Femoral Vein Deep Femoral Vein Greater Saphenous Vein * Femoral Vein Popliteal Vein Small Saphenous Vein * Proximal Calf Veins (* superficial vessels) Left Leg: Appears negative for DVT IMPRESSION: No evidence for DVT within the left lower extremity imaged from the groin to the upper calf. Interval clearance of the previous chronic clot in the popliteal vein.
== END | disposition home or self-care (01) ==
LOC: RADUSWWP 12:47
PROVIDERS: ATTEND Internal Medicine Hematology & Oncology
DX: D68.59 Other primary thrombophilia (principal); I82.5Z9 Chronic embolism and thrombosis of unspecified deep veins of unspecified distal lower extremity; E11.9 Type 2 diabetes mellitus without complications

== ENCOUNTER → 2023-05-30 | Outpatient (CLI) | payer MEDICARE ==
[2023-05-30 16:20] LABS: Basophils # (A) 0.05 X 10*3/uL (0.00-0.10); Basophils % (A) 0.8 %; Eosinophils # (A) 0.18 X 10*3/uL (0.04-0.35); HCT 47.4 % (39.6-50.0); HGB 15.6 g/dL (13.0-17.0); Lymphocytes # (A) 1.72 X 10*3/uL (0.90-5.00); Lymphocytes % (A) 28.8 %; MCH 28.7 pg (27.0-32.0); MCHC 32.9 g/dL (32.0-37.0); MCV 87.1 FL (80.0-97.0); Mean Platelet Volume 9.1 FL (9.5-12.2); Monocytes # (A) 0.56 X 10*3/uL (0.20-1.00); Monocytes % (A) 9.4 %; NRBC Per 100 WBC 0 X 10*3/uL (0.00-0.01); Neutrophils # (A) 3.45 X 10*3/uL (1.80-7.70); Neutrophils % (A) 57.7 %; Platelet Count 241 X 10*3/uL (140-440); RBC 5.44 X 10*6/uL (4.40-5.60); RDW 12.6 % (11.5-14.5); WBC 5.98 X 10*3/uL (4.50-10.00)
[2023-05-30 17:32] LABS: ALT 27 U/L (10-49); AST 17 U/L (14-35); Albumin 4.5 g/dL (3.8-4.9); Albumin/Globulin Ratio 1.61 Ratio (1.60-3.17); Alkaline Phosphatase 95 U/L (41-126); BUN/Creat Ratio 11.62 Ratio (12.00-20.00); Blood Urea Nitrogen 9.3 mg/dL (9.0-27.0); Calcium 10.1 mg/dL (8.7-10.3); Carbon Dioxide 27.1 mmol/L (21.6-31.8); Chloride 101 mmol/L (96-109); Chol/HDL Ratio 4.26 Ratio; Creatine Kinase 77 U/L (35-257); Globulin 2.8 g/dL (1.6-3.3); Glucose 129 mg/dL (70-110); LDL Cholesterol,Calculated 78.5 mg/dL (0.0-131.0); Magnesium 2.1 mg/dL (1.5-2.4); Phosphorus 3.7 mg/dL (2.4-5.1); Potassium 4.8 mmol/L (3.5-5.5); Sodium 141 mmol/L (135-145); Total Bilirubin 0.5 mg/dL (0.3-1.2); Total Protein 7.3 g/dL (6.2-8.2)
[2023-05-30 18:01] LABS: Vitamin B12 >3600.0 pg/mL (200.0-944.0)
== END | disposition home or self-care (01) ==
LOC: LABWHC1 10:31
PROVIDERS: ATTEND Nurse Practitioner Family
DX: Z00.00 Encounter for general adult medical examination without abnormal findings (principal); Z12.5 Encounter for screening for malignant neoplasm of prostate; I80.3 Phlebitis and thrombophlebitis of lower extremities, unspecified; I26.99 Other pulmonary embolism without acute cor pulmonale; E11.9 Type 2 diabetes mellitus without complications; E78.2 Mixed hyperlipidemia
CPT/HCPCS: 80061; 80053; 82607; 82550; 82746; 83735; 84100; 85025; 82306; 83036; 36415; G0103

== ENCOUNTER 2024-08-11 03:38 | Inpatient (IN) | payer MEDICARE ==
--- NOTE | 2024-08-11 04:10 | ED ---
General Adult HPI - General Chief complaint: Shortness of Breath Stated complaint: SOB Time Seen by Provider: 08/11/24 03:49 Source: patient, RN notes reviewed, old records reviewed Mode of arrival: ambulatory Limitations: no limitations - History of Present Illness Initial comments: 68-year-old male presenting for evaluation of dyspnea and palpitations. Symptoms have been present for the past 12 hours. Patient has history of atrial fibrillation and is on Eliquis. Patient has remote history of DVT and PE. He states that he feels similar to previous episode of PE. He denies central chest pain. He denies lower extremity pain or swelling. No history of heart failure. He states he has been eating and drinking normally. - Related Data Home Medications Medication Instructions Recorded Confirmed Atorvastatin [Lipitor] 20 mg PO DAILY 05/12/20 06/02/20 Fish Oil/Dha/Epa [Fish Oil 1,200 2 cap PO BID 05/12/20 06/02/20 mg Fish Oil] Vitamin D3(Unknown Dose) 1 tab PO DAILY 05/12/20 06/02/20 Previous Rx's Medication Instructions Recorded Apixaban [Eliquis] 5 mg PO BID #70 tab 05/13/20 Insulin Glargine,Hum.rec.anlog 10 unit SQ HS #4 pen 06/05/20 [Lantus Solostar] metFORMIN HCL [Glucophage] 500 mg PO BID #60 tab 06/05/20 Allergies Allergy/AdvReac Type Severity Reaction Status Date / Time No Known Allergies Allergy Verified 08/11/24 03:42 Review of Systems ROS Statement: Those systems with pertinent positive or pertinent negative responses have been documented in the HPI. ROS Other: All systems not noted in ROS Statement are negative. Past Medical History Past Medical History: Atrial Fibrillation, Diabetes Mellitus, Deep Vein Thrombosis (DVT), Hyperlipidemia, Pulmonary Embolus (PE), Supraventricular Tach ycardia (SVT) History of Any Multi-Drug Resistant Organisms: None Reported Past Surgical History: Bariatric Surgery, Cholecystectomy Past Anesthesia/Blood Transfusion Reactions: No Reported Reaction Past Psychological History: No Psychological Hx Reported Smoking Status: Current some day smoker Past Alcohol Use History: Rare Past Drug Use History: None Reported - Past Family History Father Family Medical History: AICD/Pacemaker, Diabetes Mellitus Mother Additional Family Medical History / Comment(s): at age 67 from systemic can cer Brother(s) Additional Family Medical History / Comment(s): brother had a DVT General Exam Limitations: no limitations General appearance: alert, in no apparent distress Head exam: Present: atraumatic, normocephalic Eye exam: Present: normal appearance, PERRL ENT exam: Present: normal exam Neck exam: Present: normal inspection. Absent: tenderness, meningismus Respiratory exam: Present: normal lung sounds bilaterally. Absent: respiratory distress, wheezes Cardiovascular Exam: Present: normal rhythm, tachycardia GI/Abdominal exam: Present: soft. Absent: distended, tenderness, guarding Extremities exam: Present: normal inspection, normal capillary refill. Absent: pedal edema, calf tenderness Neurological exam: Present: alert, oriented X3, CN II-XII intact. Absent: motor sensory deficit Psychiatric exam: Present: normal affect, normal mood Skin exam: Present: warm, dry, intact, pallor Course Vital Signs 08/11/24 08/11/24 03:42 04:00 Temperature 97.4 F L Pulse Rate 83 151 H Respiratory 16 17 Rate Blood Pressure 120/76 128/93 O2 Sat by Pulse 99 98 Oximetry Medical Decision Making - Medical Decision Making Was pt. sent in by a medical professional or institution (, PA, BACKGROUND INVESTIGATOR, urgent care, hospital, or residential...) When possible be specific @ -No Did you speak to anyone other than the patient for history (EMS, parent, family, police, friend...)? What history was obtained from this source @ -No Did you review nursing and triage notes (agree or disagree)? Why? @ -I reviewed and agree with nursing and triage notes Were old charts reviewed (outside hosp., previous admission, EMS record, old EKG, old radiological studies, urgent care reports/EKG's, residential records)? Report findings @ -No old charts were reviewed Differential Dyspnea: Coronary syndrome, arrhythmia, tamponade, asthma, COPD, pulmonary embolism, pneumonia, pneumothorax, pulmonary effusion, anaphylaxis, diabetic ketoacidosis, flailed chest, pulmonary contusion, diaphragmatic rupture, anemia, neurom uscular, this is not meant to be an all-inclusive list. EKG interpreted by me (3pts min.). @ -Atrial flutter with 2-1 conduction rate of 150, QRS duration 100, QTc [address] segment elevation. X-rays interpreted by me (1pt min.). @ -Chest x-ray negative for acute cardiopulmonary findings. CT interpreted by me (1pt min.). @ -None done U/S interpreted by me (1pt. min.). @ -None done What testing was considered but not performed or refused? (CT, X-rays, U/S, labs)? Why? @ -None What meds were considered but not given or refused? Why? @ -None Did you discuss the management of the patient with other professionals (professionals i.e. , PA, BACKGROUND INVESTIGATOR, lab, RT, psych nurse, social work case manager, outpatient surgery rn, teacher, fisheries technical officer, caseworker intake)? Give summary @ -[Dr. Schmid who will admit Was smoking cessation discussed for >3mins.? @ -No Was critical care preformed (if so, how long)? @ yes, 35 min Were there social determinants of health that impacted care today? How? (Homelessness, low income, unemployed, alcoholism, drug addiction, transportation, low edu. Level, literacy, decrease access to med. care, shelter, rehab)? @ -No Was there de-escalation of care discussed even if they declined (Discuss DNR or withdrawal of care, Hospice)? DNR status @ -No What co-morbidities impacted this encounter? (DM, HTN, Smoking, COPD, CAD, Cancer, CVA, ARF, Chemo, Hep., AIDS, mental health diagnosis, sleep apnea, morbid obesity)? @ -[Atrial fibrillation Was patient admitted / discharged? Hospital course, mention meds given and route, prescriptions, significant lab abnormalities, going to OR and other p ertinent info. @68-year-old male with palpitation, dyspnea, noted to be in atrial flutter with 2 1 conduction, ventricular rate of 150. Patient given fluid bolus as well as started on Cardizem. He is on Eliquis at baseline. Laboratory testing is unremarkable. Chest x-ray is clear. Patient admitted for rate control of atrial flutter with RVR. Undiagnosed new problem with uncertain prognosis? @ -No Drug Therapy requiring intensive monitoring for toxicity (Heparin, Nitro, Insulin, Cardizem)? @ -No Were any procedures done? @ -No Diagnosis/symptom? @ -[Atrial flutter with RVR Acute, or Chronic, or Acute on Chronic? @ -Acute Uncomplicated (without systemic symptoms) or Complicated (systemic symptoms)? @ -[default Side effects of treatment? @ -No Exacerbation, Progression, or Severe Exacerbation? @ -No Poses a threat to life or bodily function? How? (Chest pain, [place], [place], pneumonia, PE, COPD, DKA, ARF, appy, cholecystitis, CVA, Diverticulitis, Homicidal, Suicidal, threat to staff... and all critical care pts) @ -Yes, arrhythmia, cardiogenic shock - Lab Data Result diagrams: 08/11/24 04:09 08/11/24 04:09 Lab Results 08/11/24 08/11/24 08/11/24 Range/Units 04:09 04:09 04:09 WBC 10.8 H (3.8-10.6) k/uL RBC 5.34 (4.30-5.90) m/uL Hgb 16.1 (13.0-17.5) gm/dL Hct 47.7 (39.0-53.0) % MCV 89.4 (80.0-100.0) fL MCH 30.2 (25.0-35.0) pg MCHC 33.7 (31.0-37.0) g/dL RDW 13.6 (11.5-15.5) % Plt Count 206 (150-450) k/uL MPV 7.0 Neutrophils % 92 % Lymphocytes % 3 % Monocytes % 3 % Eosinophils % 1 % Basophils % 0 % Neutrophils # 9.9 H (1.3-7.7) k/uL Lymphocytes # 0.4 L (1.0-4.8) k/uL Monocytes # 0.4 (0-1.0) k/uL Eosinophils # 0.1 (0-0.7) k/uL Basophils # 0.0 (0-0.2) k/uL PT 10.5 (10.0-12.5) sec INR 0.9 (<1.2) APTT 23.0 (22.0-30.0) sec D-Dimer 0.21 (<0.60) mg/L FEU Sodium 138 (137-145) mmol/L Potassium 4.0 (3.5-5.1) mmol/L Chloride 105 (98-107) mmol/L Carbon Dioxide 18 L (22-30) mmol/L Anion Gap 15 mmol/L BUN 26 H (9-20) mg/dL Creatinine 0.86 (0.66-1.25) mg/dL Est GFR (CKD-EPI)AfAm >90 (>60 ml/min/1.73 sqM) Est GFR (CKD-EPI)NonAf 88 (>60 ml/min/1.73 sqM) Glucose 248 H (74-99) mg/dL Calcium 8.7 (8.4-10.2) mg/dL Magnesium 1.9 (1.6-2.3) mg/dL Total Bilirubin 1.2 (0.2-1.3) mg/dL AST 20 (17-59) U/L ALT 24 (4-49) U/L Alkaline Phosphatase 72 (38-126) U/L Troponin I (0.000-0.034) ng/mL NT-Pro-B Natriuret Pep 281 pg/mL Total Protein 6.5 (6.3-8.2) g/dL Albumin 4.1 (3.5-5.0) g/dL 08/11/24 Range/Units 04:09 WBC (3.8-10.6) k/uL RBC (4.30-5.90) m/uL Hgb (13.0-17.5) gm/dL Hct (39.0-53.0) % MCV (80.0-100.0) fL MCH (25.0-35.0) pg MCHC (31.0-37.0) g/dL RDW (11.5-15.5) % Plt Count (150-450) k/uL MPV Neutrophils % % Lymphocytes % % Monocytes % % Eosinophils % % Basophils % % Neutrophils # (1.3-7.7) k/uL Lymphocytes # (1.0-4.8) k/uL Monocytes # (0-1.0) k/uL Eosinophils # (0-0.7) k/uL Basophils # (0-0.2) k/uL PT (10.0-12.5) sec INR (<1.2) APTT (22.0-30.0) sec D-Dimer (<0.60) mg/L FEU Sodium (137-145) mmol/L Potassium (3.5-5.1) mmol/L Chloride (98-107) mmol/L Carbon Dioxide (22-30) mmol/L Anion Gap mmol/L BUN (9-20) mg/dL Creatinine (0.66-1.25) mg/dL Est GFR (CKD-EPI)AfAm (>60 ml/min/1.73 sqM) Est GFR (CKD-EPI)NonAf (>60 ml/min/1.73 sqM) Glucose (74-99) mg/dL Calcium (8.4-10.2) mg/dL Magnesium (1.6-2.3) mg/dL Total Bilirubin (0.2-1.3) mg/dL AST (17-59) U/L ALT (4-49) U/L Alkaline Phosphatase (38-126) U/L Troponin I 0.019 (0.000-0.034) ng/mL NT-Pro-B Natriuret Pep pg/mL Total Protein (6.3-8.2) g/dL Albumin (3.5-5.0) g/dL Critical Care Time Critical Care Time: Yes Total Critical Care Time: 35 Disposition Clinical Impression: Atrial flutter with rapid ventricular response Disposition: ADMITTED IP TO THIS HOSP Condition: Stable Is patient prescribed a controlled substance at d/c from ED?: No Referrals: None,Stated [Primary Care Provider] - 1-2 days Time of Disposition: 05:19
[2024-08-11] MEDS: SODIUM CHLORIDE 0.9% 500 ML 500 ML IV ONE ×3 (04:29→05:29)
[2024-08-11] MEDS: DILTIAZEM DRIP BOLUS FROM BAG 1 MG SOLN IV ONE (04:29)
[2024-08-11] MEDS: DILTIAZEM 125 MG in SODIUM CHLORIDE 0.9% 100 ML IV SCH ×2 (04:29→08:23)
[2024-08-11 04:35] LABS: Basophils % (A) 0 %; Eosinophils # (A) 0.1 k/uL (0-0.7); Eosinophils % (A) 1 %; HCT 47.7 % (39.0-53.0); HGB 16.1 gm/dL (13.0-17.5); Lymphocytes # (A) 0.4 k/uL (1.0-4.8); Lymphocytes % (A) 3 %; MCH 30.2 pg (25.0-35.0); MCHC 33.7 g/dL (31.0-37.0); MCV 89.4 fL (80.0-100.0); Monocytes # (A) 0.4 k/uL (0-1.0); Monocytes % (A) 3 %; Neutrophils # (A) 9.9 k/uL (1.3-7.7); Neutrophils % (A) 92 %; Platelet Count 206 k/uL (150-450); RBC 5.34 m/uL (4.30-5.90); RDW 13.6 % (11.5-15.5); WBC 10.8 k/uL (3.8-10.6)
[2024-08-11 04:45] LABS: INR 0.9 (<1.2); Prothrombin Time 10.5 sec (10.0-12.5)
[2024-08-11 04:46] LABS: ALT 24 U/L (4-49); AST 20 U/L (17-59); African American GFR (CKD) >90 (>60 ml/min/1.73 sqM); Albumin 4.1 g/dL (3.5-5.0); Alkaline Phosphatase 72 U/L (38-126); Anion Gap 15 mmol/L; Blood Urea Nitrogen 26 mg/dL (9-20); Calcium 8.7 mg/dL (8.4-10.2); Carbon Dioxide 18 mmol/L (22-30); Chloride 105 mmol/L (98-107); Glucose 248 mg/dL (74-99); Magnesium 1.9 mg/dL (1.6-2.3); Non-African American GFR(CKD) 88 (>60 ml/min/1.73 sqM); Sodium 138 mmol/L (137-145); Total Bilirubin 1.2 mg/dL (0.2-1.3); Total Protein 6.5 g/dL (6.3-8.2)
[2024-08-11 04:54] LABS: NT-Pro-B-Type Natriuretic Pept 281 pg/mL
[2024-08-11] MEDS ORDERED: NALOXONE 0.4 MG/ML 1 ML VIAL IV PRN (05:11)
--- NOTE | 2024-08-11 05:22 | XR ---
EXAM: XR Chest, 2 Views CLINICAL HISTORY: ITS.REASON XR Reason: difficulty breathing TECHNIQUE: Frontal and lateral views of the chest. COMPARISON: No relevant prior studies available. FINDINGS: Lungs: Unremarkable. No consolidation. Pleural space: Unremarkable. No pneumothorax. Heart: Unremarkable. No cardiomegaly. Mediastinum: Unremarkable. Normal mediastinal contour. Bones/joints: Degenerative changes are seen in the spine and shoulders. No acute fracture. Vasculature: Calcifications overlie the aorta. IMPRESSION: No acute findings in the chest.
[2024-08-11] MEDS: SODIUM CHLORIDE 0.9% 1,000 ML IV SCH (05:27)
[2024-08-11] MEDS ORDERED: DEXTROSE 50% SYRINGE 50 ML IVP PRN (08:40)
[2024-08-11] MEDS ORDERED: NON FORMULARY DRUG (Omega-3/Dha/Epa/Fish Oil [Fish Oil 1,000 Mg Softgel] 1 EACH Capsule) PO SCH (09:00)
[2024-08-11] MEDS ORDERED: NON FORMULARY DRUG (Vitamin B Complex [Vitamin B Complex] 1 EACH Capsule) PO SCH (09:00)
[2024-08-11] MEDS: APIXABAN 5 MG TAB PO SCH (09:40)
[2024-08-11] MEDS: METOPROLOL SUCCINATE (ER) 25 MG TAB.ER.24H PO SCH (09:41)
[2024-08-11] MEDS: ATORVASTATIN 20 MG TAB PO SCH (09:41)
[2024-08-11] MEDS: DAPAGLIFLOZIN PROPANEDIOL 10 MG TABLET PO SCH (09:41)
[2024-08-11] MEDS: CHOLECALCIFEROL 25 MCG (1000 IU) TABLET PO SCH (09:41)
[2024-08-11] MEDS: LORATADINE 10 MG TAB PO SCH (09:42)
[2024-08-11] MEDS: PSYLLIUM HUSK 100% 6 GM PACKET PO SCH (09:43)
[2024-08-11] MEDS: NON FORMULARY DRUG (Semaglutide [Rybelsus] 14 MG Tablet) PO SCH (09:45)
[2024-08-11 09:58] LABS: Glucose,Whole Blood 172 mg/dL (70-110)
[2024-08-11 11:53] LABS: Glucose,Whole Blood 135 mg/dL (70-110)
[2024-08-11] MEDS: INSULIN ASPART (NovoLOG) 100 UNIT/ML VIAL SQ SCH (12:01)
--- NOTE | 2024-08-11 12:58 | P.CRDCN ---
History of Present Illness Consult date: 08/11/24 History of present illness: This is a 68-year-old male with past medical history of dyslipidemia, diabetes, remote history of tobacco use and dependence, paroxysmal atrial fibrillation. We have been asked to evaluate the patient for atrial flutter with RVR. Patient follows with a head of science in [place]. He states that he thought he was in atrial fibrillation his heart rate was going 150 then dropping down to 70. He also has shortness of breath especially with exertion. He states his blood pressures at home dropped down to the 70s systolic. He states he feels weak with any movements. He states this been going on for the past 3 to 4 months. Patient has been started on Cardizem drip. Patient did not go in and out of SVT during evaluation. Valsalva maneuver caused patient to convert to sinus rhythm. Currently his heart rate is 89, blood pressure 121/95, pulse ox 96% on room air. -EKG: SVT at 150 bpm -Chest x-ray: No acute findings. -Laboratory studies: WBC 10.8, hemoglobin 16.1. D-dimer 0.21. CO2 18, BUN 26 creatinine 0.86, potassium 4. Troponin negative x 1. proBNP 281. TSH 1.08. -Home cardiac medications: -Echocardiogram performed 05/13/2020: EF 50 to 55%, mild concentric left ventricular hypertrophy, mild MR and mild TR. Mild pulmonary hypertension. Review Of Systems: At the time of my exam: CONSTITUTIONAL: Denies fever or chills. HEENT: Denies blurred vision, vision changes, or eye pain. Denies hemoptysis CARDIOVASCULAR: Denies chest pain. Denies orthopnea. Denies PND. Denies palpitations RESPIRATORY: Denies shortness of breath. GASTROINTESTINAL: Denies abdominal pain. Denies nausea or vomiting. HEMATOLOGIC: Denies bleeding disorders. GENITOURINARY: Denies any blood in urine. SKIN: Denies puritis. Denies rash. Physical examination: Gen: This is a 76-year-old male in no acute distress VS: reviewed HEENT: Head is atraumatic, normocephalic. Pupils equal, round. Sclerae is anicteric. NECK: Supple. No JVD. LUNGS: Clear to auscultation. No wheezes or rhonchi. No intercostal retractions. HEART: Regular rate and rhythm. Systolic murmur. ABDOMEN: Soft No tenderness. EXTREMITIES: No pedal edema. No calf tenderness. NEUROLOGICAL: Patient is awake, alert and oriented x3. Assessment: Recurrent SVT, incessant despite medical treatment Hypertension History of atrial flutter in the setting of PE in 2019 Dyslipidemia Diabetes mellitus History of tobacco use and dependence History of pulmonary embolism 2019 Plan: Resume patient's home cardiac medications Hold beta-maritza Continue patient on Cardizem drip and increase to 10 mg/h Obtain 2-D echocardiogram and Doppler study to assess cardiac structure and func tion Schedule patient for EP study with possible RFA, possible cardioversion tomorrow with Dr. Narciso Moran after midnight. No beta-maritza to be given prior to EP study. Further recommendations to follow based upon clinical course Thank you kindly for this consultation. Nurse practitioner note has been reviewed, I agree with documented findings and plan of care. Patient was seen and examined. Past Medical History Past Medical History: Atrial Fibrillation, Diabetes Mellitus, Deep Vein Thrombosis (DVT), Hyperlipidemia, Pulmonary Embolus (PE), Supraventricular Tachycardia (SVT) History of Any Multi-Drug Resistant Organisms: None Reported Past Surgical History: Bariatric Surgery, Cholecystectomy Past Anesthesia/Blood Transfusion Reactions: No Reported Reaction Past Psychological History: No Psychological Hx Reported Smoking Status: Current some day smoker Past Alcohol Use History: Rare Past Drug Use History: None Reported - Past Family History Father Family Medical History: AICD/Pacemaker, Diabetes Mellitus Mother Additional Family Medical History / Comment(s): at age 67 from systemic cancer Brother(s) Additional Family Medical History / Comment(s): brother had a DVT Medications and Allergies Home Medications Medication Instructions Recorded Confirmed Type Atorvastatin [Lipitor] 20 mg PO DAILY 05/12/20 08/11/24 History Apixaban [Eliquis] 5 mg PO BID #70 tab 05/13/20 08/11/24 Rx Insulin Glargine,Hum.rec.anlog 10 unit SQ HS #4 pen 06/05/20 08/11/24 Rx [Lantus Solostar] Cetirizine HCl [Zyrtec] 10 mg PO DAILY 08/11/24 08/11/24 History Cholecalciferol (Vitamin D3) 50 mcg PO DAILY 08/11/24 08/11/24 History [Vitamin D3 (50 Mcg = 2000 Iu)] Empagliflozin [Jardiance] 25 mg PO DAILY 08/11/24 08/11/24 History Metoprolol Succinate (ER) [Toprol 25 mg PO DAILY 08/11/24 08/11/24 History Xl] Mv-Min/Folic/K1/Lycopen/Lutein 1 tab PO DAILY 08/11/24 08/11/24 History [Centrum Silver Men Tablet] [place]-3/Dha/Epa/Fish Oil [Fish Oil 1 cap PO DAILY 08/11/24 08/11/24 History 1,000 mg Softgel] Psyllium Husk [Fiber Capsule] 0.4 gm PO DAILY 08/11/24 08/11/24 History Semaglutide [Rybelsus] 14 mg PO DAILY 08/11/24 08/11/24 History Vitamin B Complex 1 cap PO DAILY 08/11/24 08/11/24 History metFORMIN HCL [Glucophage] 1,000 mg PO BID 08/11/24 08/11/24 History Allergies Allergy/AdvReac Type Severity Reaction Status Date / Time No Known Allergies Allergy Verified 08/11/24 08:18 Physical Exam Vitals: Vital Signs Temp Pulse Resp BP Pulse Ox 08/11/24 06:40 95 18 104/55 96 08/11/24 05:30 135 H 21 107/55 99 08/11/24 05:20 80 18 76/49 98 08/11/24 05:00 85 18 109/66 97 08/11/24 04:40 129 H 20 135/62 95 08/11/24 04:30 134 H 18 75/55 96 08/11/24 04:00 151 H 17 128/93 98 08/11/24 03:42 97.4 F L 83 16 120/76 99 Intake and Output 08/10/24 08/11/24 08/11/24 22:59 06:59 14:59 Other: Weight 111.13 kg Results 08/11/24 04:09 08/11/24 04:09 Cardiac Enzymes 08/11/24 08/11/24 Range/Units 04:09 04:09 AST 20 (17-59) U/L Troponin I 0.019 (0.000-0.034) ng/mL Coagulation 08/11/24 Range/Units 04:09 PT 10.5 (10.0-12.5) sec APTT 23.0 (22.0-30.0) sec CBC 08/11/24 Range/Units 04:09 WBC 10.8 H (3.8-10.6) k/uL RBC 5.34 (4.30-5.90) m/uL Hgb 16.1 (13.0-17.5) gm/dL Hct 47.7 (39.0-53.0) % Plt Count 206 (150-450) k/uL Comprehensive Metabolic Panel 08/11/24 Range/Units 04:09 Sodium 138 (137-145) mmol/L Potassium 4.0 (3.5-5.1) mmol/L Chloride 105 (98-107) mmol/L Carbon Dioxide 18 L (22-30) mmol/L BUN 26 H (9-20) mg/dL Creatinine 0.86 (0.66-1.25) mg/dL Glucose 248 H (74-99) mg/dL Calcium 8.7 (8.4-10.2) mg/dL AST 20 (17-59) U/L ALT 24 (4-49) U/L Alkaline Phosphatase 72 (38-126) U/L Total Protein 6.5 (6.3-8.2) g/dL Albumin 4.1 (3.5-5.0) g/dL Current Medications Generic Name Dose Route Start Last Admin Trade Name Freq PRN Reason Stop Dose Admin Acetaminophen 650 mg 08/11/24 05:16 Acetaminophen Tab 325 Mg Tab PO Q6HR PRN Mild Pain or Fever > 100.5 Sodium Chloride 1,000 mls @ 75 mls/hr 08/11/24 05:30 08/11/24 05:27 Saline 0.9% IV 75 mls/hr .[id number] CHUCKY Administration Naloxone HCl 0.2 mg 08/11/24 05:11 Naloxone 0.4 Mg/Ml 1 Ml Vial IV Q2M PRN Opioid Reversal Intake and Output 08/10/24 08/11/24 08/11/24 22:59 06:59 14:59 Other: Weight 111.13 kg 08/11/24 04:09 08/11/24 04:09
--- NOTE | 2024-08-11 13:12 | P.HPIM ---
History of Present Illness H&P Date: 08/11/24 History of Presenting Illness: Patient is a very pleasant 68-year-old male with a past medical history of atrial fibrillation on anticoagulation with Eliquis, hypertension, hyperlipidemia, previous DVT and PE, and insulin-dependent diabetes mellitus. He presented to the emergency department with a chief complaint of palpitations and shortness of breath. Patient reports the symptoms began last night and progressively worsened. He reports symptoms similar to previous episodes of A- fib RVR but reports typically resolves on its own and this time was persistent. He reports significant worsening shortness of breath with any exertion and even has to stop and take a break with walking to the restroom. He denies having any fevers, chills, dizziness, lightheadedness, changes in vision or hearing, chest pain, palpitations, cough or congestion, nausea, vomiting, or experiencing any numbness/tingling/weakness/swelling in his extremities. Upon arrival to our facility, patient underwent evaluation in the emergency department. Vital signs upon arrival show blood pressure 120/76, heart rate 83, respiratory rate 97.4 F, and SpO2 of 99% on room air. EKG completed showing atrial fibrillation at 150 bpm with an incomplete right bundle branch block. Chest x-ray completed negative for acute cardiopulmonary process. Labs completed and reviewed. CBC showing mild leukocytosis with WBC count of 10.8 otherwise normal findings. Coagulation profile normal findings. D-dimer negative at 0.21. BMP showing hypocarbia with bicarb of 18 and mild prerenal azotemia with BUN of 26. Blood glucose 248. Magnesium 1.9. Liver profile unremarkable. Troponin was 0.019 with proBNP of 281. TSH 1.080. Patient was started on Cardizem infusion and admitted under our services with consultation to cardiology. Review of systems: Pertinent positives and negatives as discussed in HPI, a complete review of systems was performed and all other systems are negative. Physical exam: Vital signs reviewed and stable. General: Nontoxic, no distress and appears stated age. Derm: Skin warm and dry, normal coloration for ethnicity. Head: Atraumatic, normocephalic and symmetric. Eyes: EOM's intact, no lid lag, and anicteric sclera Mouth: no lip lesions, mucus membranes moist Cardiovascular: Irregularly irregular, soft systolic murmur, positive posterior tibial pulses bilaterally, and cap refill < 2 seconds. Lungs: Respirations even, regular, and unlabored on room air. Lungs CTA bilaterally, no rhonchi, no rales, no wheezing, and no accessory muscle usage. Abdominal: soft, nontender to palpation, no guarding, no appreciable organomegaly Ext: ROM intact. No gross muscle atrophy, no edema, no contractures Neuro: Speech clear, face symmetrical and CN II-XII grossly intact with no noted focal neuro deficits Psych: Alert and oriented to person, place, time, and situation. Appropriate and pleasant affect. Assessment and Plan of Care: Atrial fibrillation with RVR History of DVT and PE Cardiology consulted, stating may take patient for possible cardioversion tomorrow with Dr. Stuart. Continue Cardizem infusion, titrate 5 mg/h to 15 mg/h to obtain goal ventricular rate of 70-90. Continue Eliquis 5 mg twice daily. Continuous telemetry monitoring. Echocardiogram to be completed. Diabetes mellitus with hyperglycemia Continue Rybelsus 14 mg daily, Levemir 10 units nightly, and patient placed on glycemic protocol with NovoLog sliding scale. Metformin held at this time. Follow-up on hemoglobin A1c. Hypertension Monitor vital signs. Patient on Cardizem infusion. Metoprolol held per cardiology. Hyperlipidemia Continue daily medication regimen with atorvastatin 20 mg daily. Data and imaging reviewed: As stated above in HPI. CODE STATUS: Full code DVT prophylaxis: Eliquis Anticipated discharge date: Pending clinical course Anticipated discharge place: Home Patient was seen independently by Nurse Practitioner. This document was prepared using [employer] dictation software. 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 Rufus Barnes NP rendered care for this patient independently, reviewed the findings and plan as documented in the note above and agree with plan. I did not physically speak with or examine the patient on this date. Past Medical History Past Medical History: Atrial Fibrillation, Diabetes Mellitus, Deep Vein Thrombosis (DVT), Hyperlipidemia, Pulmonary Embolus (PE), Supraventricular Tachy cardia (SVT) History of Any Multi-Drug Resistant Organisms: None Reported Past Surgical History: Bariatric Surgery, Cholecystectomy Past Anesthesia/Blood Transfusion Reactions: No Reported Reaction Past Psychological History: No Psychological Hx Reported Smoking Status: Current some day smoker Past Alcohol Use History: Rare Past Drug Use History: None Reported - Past Family History Father Family Medical History: AICD/Pacemaker, Diabetes Mellitus Mother Additional Family Medical History / Comment(s): at age 67 from systemic cancer Brother(s) Additional Family Medical History / Comment(s): brother had a DVT Medications and Allergies Home Medications Medication Instructions Recorded Confirmed Type Atorvastatin [Lipitor] 20 mg PO DAILY 05/12/20 08/11/24 History Apixaban [Eliquis] 5 mg PO BID #70 tab 05/13/20 08/11/24 Rx Insulin Glargine,Hum.rec.anlog 10 unit SQ HS #4 pen 06/05/20 08/11/24 Rx [Lantus Solostar] Cetirizine HCl [Zyrtec] 10 mg PO DAILY 08/11/24 08/11/24 History Cholecalciferol (Vitamin D3) 50 mcg PO DAILY 08/11/24 08/11/24 History [Vitamin D3 (50 Mcg = 2000 Iu)] Empagliflozin [Jardiance] 25 mg PO DAILY 08/11/24 08/11/24 History Metoprolol Succinate (ER) [Toprol 25 mg PO DAILY 08/11/24 08/11/24 History Xl] Mv-Min/Folic/K1/Lycopen/Lutein 1 tab PO DAILY 08/11/24 08/11/24 History [Centrum Silver Men Tablet] [place]-3/Dha/Epa/Fish Oil [Fish Oil 1 cap PO DAILY 08/11/24 08/11/24 History 1,000 mg Softgel] Psyllium Husk [Fiber Capsule] 0.4 gm PO DAILY 08/11/24 08/11/24 History Semaglutide [Rybelsus] 14 mg PO DAILY 08/11/24 08/11/24 History Vitamin B Complex 1 cap PO DAILY 08/11/24 08/11/24 History metFORMIN HCL [Glucophage] 1,000 mg PO BID 08/11/24 08/11/24 History Allergies Allergy/AdvReac Type Severity Reaction Status Date / Time No Known Allergies Allergy Verified 08/11/24 08:18 Physical Exam Vitals: Vital Signs Temp Pulse Resp BP Pulse Ox 08/11/24 06:40 95 18 104/55 96 08/11/24 05:30 135 H 21 107/55 99 08/11/24 05:20 80 18 76/49 98 08/11/24 05:00 85 18 109/66 97 08/11/24 04:40 129 H 20 135/62 95 08/11/24 04:30 134 H 18 75/55 96 08/11/24 04:00 151 H 17 128/93 98 08/11/24 03:42 97.4 F L 83 16 120/76 99 Intake and Output 08/10/24 08/11/24 08/11/24 22:59 06:59 14:59 Intake Total 19.417 Balance 19.417 Intake: Intake, IV Titration 19.417 Amount Diltiazem 125 mg In 19.417 Sodium Chloride 0.9% 100 ml @ 5 MG/HR 5 mls/hr IV .Q24H COUNT INCLUDES THE [facility] Rx#:[id number] Other: Weight 111.13 kg Results CBC & Chem 7: 08/11/24 04:09 08/11/24 04:09 Labs: Abnormal Lab Results - Last 24 Hours (Table) 08/11/24 08/11/24 Range/Units 04:09 04:09 WBC 10.8 H (3.8-10.6) k/uL Neutrophils # 9.9 H (1.3-7.7) k/uL Lymphocytes # 0.4 L (1.0-4.8) k/uL Carbon Dioxide 18 L (22-30) mmol/L BUN 26 H (9-20) mg/dL Glucose 248 H (74-99) mg/dL
--- NOTE | 2024-08-11 17:10 | CA ---
Transthoracic Echo Report Name: Gisele Avendaño Age: 68 Gender: M : 1955 Exam Date: 08/11/2024 09:09 Exam Location: [place] [facility] Ht (in): 68 Wt (lb): 245 Ordering Physician: Aislinn Cody Attending/Referring Phys: [id number], Escobar Typer Claudine Nicholson, REBECCA Procedure CPT: Indications: LVF Cardiac Hx: A fib Technical Quality: Fair Contrast 1: Total Dose (mL): Contrast 2: Total Dose (mL): MEASUREMENTS (Male / Female) Normal Values 2D ECHO LV Diastolic Diameter PLAX 4.7 cm 4.2 - 5.9 / 3.9 - 5.3 cm LV Systolic Diameter PLAX 2.8 cm IVS Diastolic Thickness 1.2 cm 0.6 - 1.0 / 0.6 - 0.9 cm LVPW Diastolic Thickness 1.1 cm 0.6 - 1.0 / 0.6 - 0.9 cm LV Relative Wall Thickness 0.5 RV Internal Dim ED PLAX 3.5 cm LA Systolic Diameter LX 4.0 cm 3.0 - 4.0 / 2.7 - 3.8 cm LA Volume 51.7 cm??? 18 - 58 / 22 - 52 cm??? LA Volume Index 22.0 cm???/m??? 16 - 28 cm???/m??? M-MODE Aortic Root Diameter MM 3.4 cm DOPPLER AV Peak Velocity 138.7 cm/s AV Peak Gradient 7.7 mmHg MV Area PHT 2.5 cm??? Mitral E Point Velocity 78.4 cm/s Mitral A Point Velocity 116.4 cm/s Mitral E to A Ratio 0.7 MV Deceleration Time 303.0 ms TR Peak Velocity 210.4 cm/s TR Peak Gradient 17.7 mmHg Right Ventricular Systolic Press 22.7 mmHg FINDINGS Left Ventricle Left ventricular ejection fraction is estimated at 55 %. Left ventricular cavity size normal. Mildly increased septal wall thickness. Right Ventricle Mild right ventricular dilatation. Right Atrium Normal right atrial size. No right atrial thrombus or mass seen. Left Atrium Normal left atrial size. No left atrial thrombus or mass present. Mitral Valve Structurally normal mitral valve. No mitral stenosis, regurgitation or prolapse. Aortic Valve Trileaflet aortic valve. No aortic valve stenosis or regurgitation. Tricuspid Valve Structurally normal tricuspid valve. Mild tricuspid regurgitation. Pulmonic Valve Structurally normal pulmonic valve. No pulmonic regurgitation. Pericardium No pericardial effusion. Aorta Normal size aortic root and proximal ascending aorta. CONCLUSIONS Technically difficult study. Patient is tachycardic. Normal LV size and systolic function. Mild mitral and tricuspid regurgitation. No pericardial effusion. No pulmonary hypertension Previewed by: Dr. Jez Alcala MD (Electronically Signed) Final Date: 11 August 2024 17:09
[2024-08-11 17:26] LABS: Glucose,Whole Blood 103 mg/dL (70-110)
--- NOTE | 2024-08-11 17:55 | P.PN ---
Progress Note - Text Please see full dictation by nurse practitioner Patient admitted with recurrent palpitations Twelve-lead EKG shows AV carlos reentry This is NOT atrial flutter. The admitting diagnosis needs to be changed Plan patient has incessant SVT despite medical treatment and IV Cardizem Proceed with EP study and ablation during this admission We have planned an ablation for this week No oral beta-blockers or calcium channel blockers Simply continue IV Cardizem TSH is normal
[2024-08-11 21:00] LABS: Glucose,Whole Blood 118 mg/dL (70-110)
[2024-08-11] MEDS: INSULIN DETEMIR (LEVEMIR) 100 UNIT/ML SYR SQ SCH (21:38)
[2024-08-12 05:59] LABS: Glucose,Whole Blood 71 mg/dL (70-110)
[2024-08-12] MEDS: DEXTROSE 50% SYRINGE 50 ML IVP PRN (06:30)
[2024-08-12 10:42] LABS: Glucose,Whole Blood 116 mg/dL (70-110)
--- NOTE | 2024-08-12 13:57 | P.PN ---
Subjective Progress Note Date: 08/12/24 Hospital Course: Patient is a very pleasant 68-year-old male with a past medical history of atrial fibrillation on anticoagulation with Eliquis, SVT, hypertension, hyperlipidemia, previous DVT and PE, and insulin-dependent diabetes mellitus. He presented to the emergency department with a chief complaint of palpitations and shortness of breath. Patient reports the symptoms began last night and progressively worsened. He reports symptoms similar to previous episodes of A- fib RVR but reports typically resolves on its own and this time was persistent. He reports significant worsening shortness of breath with any exertion and even has to stop and take a break with walking to the restroom. He denies having any fevers, chills, dizziness, lightheadedness, changes in vision or hearing, chest pain, palpitations, cough or congestion, nausea, vomiting, or experiencing any numbness/tingling/weakness/swelling in his extremities. Upon arrival to our facility, patient underwent evaluation in the emergency department. Vital signs upon arrival show blood pressure 120/76, heart rate 83, respiratory rate 97.4 F, and SpO2 of 99% on room air. EKG completed showing atrial fibrillation at 150 bpm with an incomplete right bundle branch block. Chest x-ray completed negative for acute cardiopulmonary process. Labs completed and reviewed. CBC showing mild leukocytosis with WBC count of 10.8 otherwise normal findings. Coagulation profile normal findings. D-dimer negative at 0.21. BMP showing hypocarbia with bicarb of 18 and mild prerenal azotemia with BUN of 26. Blood glucose 248. Magnesium 1.9. Liver profile unremarkable. Troponin was 0.019 wi th proBNP of 281. TSH 1.080. Patient was started on Cardizem infusion and admitted under our services with consultation to cardiology. Physical exam: Patient seen and fully evaluated at bedside this morning. He remains on Cardizem infusion at 5 mg/h at this time. Ventricular rate controlled with heart rate in the 60s. Patient denies having any chest pain or any shortness of breath at rest. He continues to report exertional shortness of breath with ambulation. Vital signs reviewed and stable. General: Nontoxic, no distress and appears stated age. Derm: Skin warm and dry, normal coloration for ethnicity. Head: Atraumatic, normocephalic and symmetric. Eyes: EOM's intact, no lid lag, and anicteric sclera Mouth: no lip lesions, mucus membranes moist Cardiovascular: Irregularly irregular, systolic murmur, positive posterior tibial pulses bilaterally, and cap refill < 2 seconds. Lungs: Respirations even, regular, and unlabored on room air. Lungs CTA bilaterally, no rhonchi, no rales, no wheezing, and no accessory muscle usage. Abdominal: soft, nontender to palpation, no guarding, no appreciable organomegaly Ext: ROM intact. No gross muscle atrophy, no edema, no contractures Neuro: Speech clear, face symmetrical and CN II-XII grossly intact with no noted focal neuro deficits Psych: Alert and oriented to person, place, time, and situation. Appropriate and pleasant affect. Assessment and Plan of Care: Recurrent SVT Paroxysnal atrial fibrillation History of DVT and PE Cardiology consulted, stating he taken for cardioversion on 08/14/[address] Stuart. Continue Cardizem infusion, titrate 5 mg/h to 15 mg/h to obtain goal ventricular rate of 70-90. Currently running at 5 mg/h Continue Eliquis 5 mg twice daily. Continuous telemetry monitoring. Echocardiogram revealing EF of 55% with mild mitral and tricuspid regurgitation and no pericardial effusion. Diabetes mellitus with hyperglycemia Continue Rybelsus 14 mg daily, Levemir 10 units nightly, and patient placed on glycemic protocol with NovoLog sliding scale. Metformin held at this time. Follow-up on hemoglobin A1c. Hypertension Monitor vital signs. Patient on Cardizem infusion. Metoprolol held per cardiology. Hyperlipidemia Continue daily medication regimen with atorvastatin 20 mg daily. Data and imaging reviewed: Labs completed and reviewed. CBC showing mild leukocytosis with WBC count of 10.8 otherwise normal findings. Coagulation profile normal findings. D-dimer negative at 0.21. BMP showing hypocarbia with bicarb of 18 and mild prerenal azotemia with BUN of 26. Blood glucose 248. Magnesium 1.9. Liver profile unremarkable. Troponin was 0.019 with proBNP of 281. TSH 1.080. Vital signs reviewed and stable blood pressure 121/65, heart rate 65, respiratory rate 16, temp 98.6 F, and SpO2 of 96% on room air. Echocardiogram revealing EF of 55% with mild mitral and tricuspid regurgitation and no pericardial effusion. CODE STATUS: Full code DVT prophylaxis: Eliquis Anticipated discharge date: Pending clinical course Anticipated discharge place: Home Patient was seen independently by Nurse Practitioner. This document was prepared using [employer] dictation software. Please allow for errors in white spooler while rare they do occur. Rufus Barnes NP rendered care for this patient independently, reviewed the findings and plan as documented in the note above and agree with plan. I did not physically speak with or examine the patient on this date. Objective - Vital Signs Vital signs: Vital Signs Temp 98.6 F 08/12/24 07:27 Pulse 65 08/12/24 07:27 Resp 16 08/12/24 07:27 BP 121/65 08/12/24 07:27 Pulse Ox 96 08/12/24 07:27 FiO2 Intake & Output 08/11/24 08/12/24 08/12/24 18:59 06:59 18:59 Intake Total 19.417 125 Balance 19.417 125 Weight 110.6 kg Intake: Intake, IV Titration 19.417 125 Amount Diltiazem 125 mg In 125 Sodium Chloride 0.9% 100 ml @ 10 MG/HR 10 mls/hr IV .[id number] [facility] Rx#: [id number] Diltiazem 125 mg In 19.417 Sodium Chloride 0.9% 100 ml @ 5 MG/HR 5 mls/hr IV .Q24H [facility] Rx#:[id number] Other: Voiding Method Toilet # Voids 1 # Bowel Movements 1 - Labs CBC & Chem 7: 08/11/24 04:09 08/11/24 04:09 Labs: Abnormal Lab Results - Last 24 Hours (Table) 08/11/24 08/11/24 08/11/24 Range/Units 09:56 11:51 20:58 POC Glucose (mg/dL) 172 H 135 H 118 H (70-110) mg/dL
--- NOTE | 2024-08-12 14:26 | P.PN ---
Subjective Progress Note Date: 08/12/24 History of present illness: This is a 68-year-old male with past medical history of dyslipidemia, diabetes, remote history of tobacco use and dependence, paroxysmal atrial fibrillation. We have been asked to evaluate the patient for atrial flutter with RVR. 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 He states that he thought he was in atrial fibrillation his heart rate was going 150 then dropping down to 70. He also has shortness of breath especially with exertion. He states his blood pressures at home dropped down to the 70s systolic. He states he feels weak wit h any movements. He states this been going on for the past 3 to 4 months. Patient has been started on Cardizem drip. Patient did not go in and out of SVT during evaluation. Valsalva maneuver caused patient to convert to sinus rhythm. Currently his heart rate is 89, blood pressure 121/95, pulse ox 96% on room air. -EKG: SVT at 150 bpm -Chest x-ray: No acute findings. -Laboratory studies: WBC 10.8, hemoglobin 16.1. D-dimer 0.21. CO2 18, BUN 26 creatinine 0.86, potassium 4. Troponin negative x 1. proBNP 281. TSH 1.08. -Home cardiac medications: -Echocardiogram performed 05/13/2020: EF 50 to 55%, mild concentric left ventricular hypertrophy, mild MR and mild TR. Mild pulmonary hypertension. 08/12 Patient seen and examined on the cardiac stepdown unit. Cardizem drip is on hold. Beta-maritza is on hold. Patient is scheduled for EP study and possible ablation on . Blood pressure 121/65, heart rate 65, pulse ox 96% on room air. Patient is currently in sinus rhythm. Echocardiogram reveals technically difficult study. Normal LV size and systolic function. Mild mitral and tricuspid regurgitation. No pericardial effusion. No pulmonary hypertension. Physical examination: Gen: This is a 76-year-old male in no acute distress VS: reviewed HEENT: Head is atraumatic, normocephalic. Pupils equal, round. Sclerae is anicteric. NECK: Supple. No JVD. LUNGS: Clear to auscultation. No wheezes or rhonchi. No intercostal retractions. HEART: Regular rate and rhythm. Systolic murmur. ABDOMEN: Soft No tenderness. EXTREMITIES: No pedal edema. No calf tenderness. NEUROLOGICAL: Patient is awake, alert and oriented x3. Assessment: Recurrent SVT, incessant despite medical treatment Hypertension History of atrial flutter in the setting of PE in 2019 Dyslipidemia Diabetes mellitus History of tobacco use and dependence History of pulmonary embolism 2019 Plan: Continue patient's home cardiac medications Hold beta-maritza Cardizem drip is off Schedule patient for EP study with possible RFA, possible cardioversion on with Dr. Stuart N.p.o. after midnight. No beta-maritza to be given prior to EP study. Further recommendations to follow based upon clinical course Nurse practitioner note has been reviewed, I agree with documented findings and plan of care. Patient was seen and examined. Objective - Vital Signs Vital signs: Vital Signs Temp 98.6 F 08/12/24 07:27 Pulse 65 08/12/24 09:12 Resp 16 08/12/24 09:12 BP 121/65 08/12/24 07:27 Pulse Ox 96 08/12/24 07:27 FiO2 Intake & Output 08/11/24 08/12/24 08/12/24 18:59 06:59 18:59 Intake Total 19.417 125 Balance 19.417 125 Weight 110.6 kg Intake: Intake, IV Titration 19.417 125 Amount Diltiazem 125 mg In 125 Sodium Chloride 0.9% 100 ml @ 10 MG/HR 10 mls/hr IV .[id number] [facility] Rx#: [id number] Diltiazem 125 mg In 19.417 Sodium Chloride 0.9% 100 ml @ 5 MG/HR 5 mls/hr IV .Q24H [facility] Rx#:[id number] Other: Voiding Method Toilet Toilet # Voids 1 # Bowel Movements 1 - Labs CBC & Chem 7: 08/11/24 04:09 08/11/24 04:09 Labs: Abnormal Lab Results - Last 24 Hours (Table) 08/11/24 08/11/24 08/11/24 Range/Units 09:56 11:51 20:58 POC Glucose (mg/dL) 172 H 135 H 118 H (70-110) mg/dL
[2024-08-12 16:23] LABS: Glucose,Whole Blood 146 mg/dL (70-110)
[2024-08-12 20:42] LABS: Glucose,Whole Blood 126 mg/dL (70-110)
[2024-08-13 06:00] LABS: Glucose,Whole Blood 96 mg/dL (70-110)
[2024-08-13 08:30] LABS: Glucose,Whole Blood 107 mg/dL (70-110)
[2024-08-13] MEDS: BISMUTH SUBSALICYLATE 4,192 MG/240 ML BOTTLE PO PRN (09:38)
[2024-08-13 10:13] LABS: HCT 44.3 % (39.0-53.0); HGB 14.5 gm/dL (13.0-17.5); MCH 29.3 pg (25.0-35.0); MCHC 32.7 g/dL (31.0-37.0); MCV 89.6 fL (80.0-100.0); Mean Platelet Volume 6.8; Platelet Count 179 k/uL (150-450); RBC 4.95 m/uL (4.30-5.90); RDW 13.6 % (11.5-15.5); WBC 5.6 k/uL (3.8-10.6)
[2024-08-13 10:26] LABS: ALT 46 U/L (4-49); AST 46 U/L (17-59); African American GFR (CKD) >90 (>60 ml/min/1.73 sqM); Albumin 3.4 g/dL (3.5-5.0); Alkaline Phosphatase 56 U/L (38-126); Anion Gap 9 mmol/L; Blood Urea Nitrogen 14 mg/dL (9-20); Calcium 8.1 mg/dL (8.4-10.2); Carbon Dioxide 22 mmol/L (22-30); Chloride 107 mmol/L (98-107); Glucose 103 mg/dL (74-99); Magnesium 2.1 mg/dL (1.6-2.3); Non-African American GFR(CKD) >90 (>60 ml/min/1.73 sqM); Sodium 138 mmol/L (137-145); Total Bilirubin 0.7 mg/dL (0.2-1.3); Total Protein 5.8 g/dL (6.3-8.2)
[2024-08-13 12:00] LABS: Glucose,Whole Blood 86 mg/dL (70-110)
--- NOTE | 2024-08-13 12:52 | P.PN ---
Subjective Progress Note Date: 08/13/24 History of present illness: This is a 68-year-old male with past medical history of dyslipidemia, diabetes, remote history of tobacco use and dependence, paroxysmal atrial fibrillation. We have been asked to evaluate the patient for atrial flutter with RVR. Patient follows with a marketing summer intern in [place]. He states that he thought he was in atrial fibrillation his heart rate was going 150 then dropping down to 70. He also has shortness of breath especially with exertion. He states his blood pressures at home dropped down to the 70s systolic. He states he feels weak wit h any movements. He states this been going on for the past 3 to 4 months. Patient has been started on Cardizem drip. Patient did not go in and out of SVT during evaluation. Valsalva maneuver caused patient to convert to sinus rhythm. Currently his heart rate is 89, blood pressure 121/95, pulse ox 96% on room air. -EKG: SVT at 150 bpm -Chest x-ray: No acute findings. -Laboratory studies: WBC 10.8, hemoglobin 16.1. D-dimer 0.21. CO2 18, BUN 26 creatinine 0.86, potassium 4. Troponin negative x 1. proBNP 281. TSH 1.08. -Home cardiac medications: -Echocardiogram performed 05/13/2020: EF 50 to 55%, mild concentric left ventricular hypertrophy, mild MR and mild TR. Mild pulmonary hypertension. 08/12 Patient seen and examined on the cardiac stepdown unit. Cardizem drip is on hold. Beta-maritza is on hold. Patient is scheduled for EP study and possible ablation on . Blood pressure 121/65, heart rate 65, pulse ox 96% on room air. Patient is currently in sinus rhythm. Echocardiogram reveals technically difficult study. Normal LV size and systolic function. Mild mitral and tricuspid regurgitation. No pericardial effusion. No pulmonary hypertension. 08/13 Patient seen and examined. He is scheduled for EP study and possible ablation on . He remains on a Cardizem drip which will be continued until tomorrow morning at 11 AM. Telemetry is a sinus rhythm with ectopy. Patient denies chest pain or shortness of breath. No lightheadedness or dizziness. Beta-maritza remains on hold. Physical examination: Gen: This is a 76-year-old male in no acute distress VS: reviewed HEENT: Head is atraumatic, normocephalic. Pupils equal, round. Sclerae is anicteric. NECK: Supple. No JVD. LUNGS: Clear to auscultation. No wheezes or rhonchi. No intercostal retract ions. HEART: Regular rate and rhythm. Systolic murmur. ABDOMEN: Soft No tenderness. EXTREMITIES: No pedal edema. No calf tenderness. NEUROLOGICAL: Patient is awake, alert and oriented x3. Assessment: Recurrent SVT, incessant despite medical treatment Hypertension History of atrial flutter in the setting of PE in 2019 Dyslipidemia Diabetes mellitus History of tobacco use and dependence History of pulmonary embolism 2019 Plan: Continue patient's home cardiac medications Hold beta-maritza Cardizem drip to be discontinued tomorrow at 11 AM Schedule patient for EP study with possible RFA, possible cardioversion on with Dr. Narciso Alamoppablo after midnight. No beta-maritza to be given prior to EP study. Further recommendations to follow based upon clinical course Nurse practitioner note has been reviewed, I agree with documented findings and plan of care. Patient was seen and examined. Objective - Vital Signs Vital signs: Vital Signs Temp 98.3 F 08/13/24 11:09 Pulse 68 08/13/24 11:09 Resp 18 08/13/24 11:09 BP 150/77 08/13/24 11:09 Pulse Ox 97 08/13/24 11:09 FiO2 Intake & Output 08/12/24 08/13/24 08/13/24 18:59 06:59 18:59 Intake Total 485 118 Balance 485 118 Weight 111.5 kg Intake: Intake, IV Titration 125 Amount Diltiazem 125 mg In 125 Sodium Chloride 0.9% 100 ml @ 10 MG/HR 10 mls/hr IV .[id number] [facility] Rx#: [id number] Oral 360 118 Other: Voiding Method Toilet Toilet Toilet # Voids 5 1 1 # Bowel Movements 1 1 - Labs CBC & Chem 7: 08/13/24 09:23 08/13/24 09:23 Labs: Abnormal Lab Results - Last 24 Hours (Table) 08/12/24 08/12/24 08/13/24 Range/Units 16:21 20:40 09:23 Glucose 103 H (74-99) mg/dL POC Glucose (mg/dL) 146 H 126 H (70-110) mg/dL Calcium 8.1 L (8.4-10.2) mg/dL Total Protein 5.8 L (6.3-8.2) g/dL Albumin 3.4 L (3.5-5.0) g/dL
[2024-08-13] MEDS: LOPERAMIDE 2 MG CAP PO STA (15:23)
[2024-08-13 16:29] LABS: Glucose,Whole Blood 154 mg/dL (70-110)
--- NOTE | 2024-08-13 17:26 | P.PN ---
Subjective Progress Note Date: 08/13/24 Hospital Course: Patient is a very pleasant 68-year-old male with a past medical history of atrial fibrillation on anticoagulation with Eliquis, SVT, hypertension, hyperlipidemia, previous DVT and PE, and insulin-dependent diabetes mellitus. He presented to the emergency department with a chief complaint of palpitations and shortness of breath. Patient reports the symptoms began last night and progressively worsened. He reports symptoms similar to previous episodes of A- fib RVR but reports typically resolves on its own and this time was persistent. He reports significant worsening shortness of breath with any exertion and even has to stop and take a break with walking to the restroom. He denies having any fevers, chills, dizziness, lightheadedness, changes in vision or hearing, chest pain, palpitations, cough or congestion, nausea, vomiting, or experiencing any numbness/tingling/weakness/swelling in his extremities. Upon arrival to our facility, patient underwent evaluation in the emergency department. Vital signs upon arrival show blood pressure 120/76, heart rate 83, respiratory rate 97.4 F, and SpO2 of 99% on room air. EKG completed showing atrial fibrillation at 150 bpm with an incomplete right bundle branch block. Chest x-ray completed negative for acute cardiopulmonary process. Labs completed and reviewed. CBC showing mild leukocytosis with WBC count of 10.8 otherwise normal findings. Coagulation profile normal findings. D-dimer negative at 0.21. BMP showing hypocarbia with bicarb of 18 and mild prerenal azotemia with BUN of 26. Blood glucose 248. Magnesium 1.9. Liver profile unremarkable. Troponin was 0.019 wi th proBNP of 281. TSH 1.080. Patient was started on Cardizem infusion and admitted under our services with consultation to cardiology. Physical exam: Patient seen and fully evaluated at bedside this morning. He remains on Cardizem infusion at 5 mg/h at this time. Ventricular rate controlled with heart rate in the 60s. Patient denies having any chest pain or any shortness of breath at this time. He does report greater than 10 episodes of diarrhea over the past 24 hours. Vital signs reviewed and stable. General: Nontoxic, no distress and appears stated age. Derm: Skin warm and dry, normal coloration for ethnicity. Head: Atraumatic, normocephalic and symmetric. Eyes: EOM's intact, no lid lag, and anicteric sclera Mouth: no lip lesions, mucus membranes moist Cardiovascular: Irregularly irregular, systolic murmur, positive posterior tibi al pulses bilaterally, and cap refill < 2 seconds. Lungs: Respirations even, regular, and unlabored on room air. Lungs CTA bilaterally, no rhonchi, no rales, no wheezing, and no accessory muscle usage. Abdominal: soft, nontender to palpation, no guarding, no appreciable organomegaly Ext: ROM intact. No gross muscle atrophy, no edema, no contractures Neuro: Speech clear, face symmetrical and CN II-XII grossly intact with no noted focal neuro deficits Psych: Alert and oriented to person, place, time, and situation. Appropriate and pleasant affect. Assessment and Plan of Care: Recurrent SVT Paroxysnal atrial fibrillation History of DVT and PE Cardiology consulted, stating pt to be taken for cardioversion tomorrow with Dr. Stuart. Continue Cardizem infusion, titrate 5 mg/h to 15 mg/h to obtain goal ventricular rate of 70-90. Currently running at 5 mg/h Continue Eliquis 5 mg twice daily. Continuous telemetry monitoring. Echocardiogram revealing EF of 55% with mild mitral and tricuspid reg urgitation and no pericardial effusion. Diabetes mellitus with hyperglycemia Continue Rybelsus 14 mg daily, Levemir 10 units nightly, and patient placed on glycemic protocol with NovoLog sliding scale. Metformin held at this time. Follow-up on hemoglobin A1c. Diarrhea, new onset -Order placed for C. difficile and stool culture. -Patient reports greater than 10 episodes of diarrhea over the past 24 hours new onset. -Patient requesting Imodium, explained need for C. difficile and stool cultures first. Will place order for 1 dose of Pepto-Bismol pending further results. Hypertension Monitor vital signs. Patient on Cardizem infusion. Metoprolol held per cardiology. Hyperlipidemia Continue daily medication regimen with atorvastatin 20 mg daily. Data and imaging reviewed: Labs completed and reviewed. CBC unremarkable. BMP normal findings. Blood glucose 103. Magnesium 2.1. Liver profile unremarkable with exception of mild hypoalbuminemia with albumin of 3.4. Vital signs reviewed and stable blood pressure 164/67, heart rate 64, respiratory rate 16, temp 97.8 F, and SpO2 of 99% on room air. CODE STATUS: Full code DVT prophylaxis: Eliquis Anticipated discharge date: Pending clinical course Anticipated discharge place: Home Patient was seen independently by Nurse Practitioner. This document was prepared using [employer] dictation software. Please allow for errors in roller bearing inspector while rare they do occur. Rufus Barnes NP rendered care for this patient independently, reviewed the findings and plan as documented in the note above and agree with plan. I did not physically speak with or examine the patient on this date. Objective - Vital Signs Vital signs: Vital Signs Temp 97.8 F 08/13/24 07:40 Pulse 64 08/13/24 07:40 Resp 16 08/13/24 07:40 BP 164/67 08/13/24 07:40 Pulse Ox 99 08/13/24 07:40 FiO2 Intake & Output 08/12/24 08/13/24 08/13/24 18:59 06:59 18:59 Intake Total 485 118 Balance 485 118 Weight 111.5 kg Intake: Intake, IV Titration 125 Amount Diltiazem 125 mg In 125 Sodium Chloride 0.9% 100 ml @ 10 MG/HR 10 mls/hr IV .[id number] [facility] Rx#: [id number] Oral 360 118 Other: Voiding Method Toilet Toilet Toilet # Voids 5 1 1 # Bowel Movements 1 1 - Labs CBC & Chem 7: 08/13/24 09:23 08/13/24 09:23 Labs: Abnormal Lab Results - Last 24 Hours (Table) 08/12/24 08/12/24 08/12/24 Range/Units 10:40 16:21 20:40 POC Glucose (mg/dL) 116 H 146 H 126 H (70-110) mg/dL
[2024-08-13 20:01] LABS: Glucose,Whole Blood 133 mg/dL (70-110)
[2024-08-14 06:26] LABS: Glucose,Whole Blood 113 mg/dL (70-110)
[2024-08-14 07:15] LABS: HCT 44.9 % (39.0-53.0); HGB 14.8 gm/dL (13.0-17.5); MCH 29.1 pg (25.0-35.0); MCV 88.3 fL (80.0-100.0); Mean Platelet Volume 6.9; Platelet Count 187 k/uL (150-450); RBC 5.08 m/uL (4.30-5.90); RDW 13.4 % (11.5-15.5); WBC 6.2 k/uL (3.8-10.6)
[2024-08-14 07:38] LABS: ALT 45 U/L (4-49); AST 36 U/L (17-59); African American GFR (CKD) >90 (>60 ml/min/1.73 sqM); Albumin 3.6 g/dL (3.5-5.0); Alkaline Phosphatase 72 U/L (38-126); Anion Gap 9 mmol/L; Blood Urea Nitrogen 9 mg/dL (9-20); Calcium 8.3 mg/dL (8.4-10.2); Carbon Dioxide 21 mmol/L (22-30); Chloride 107 mmol/L (98-107); Glucose 112 mg/dL (74-99); Non-African American GFR(CKD) >90 (>60 ml/min/1.73 sqM); Potassium 3.8 mmol/L (3.5-5.1); Sodium 137 mmol/L (137-145); Total Bilirubin 0.9 mg/dL (0.2-1.3)
[2024-08-14 12:08] LABS: Glucose,Whole Blood 82 mg/dL (70-110)
[2024-08-14] MEDS: BENZONATATE 100 MG CAP PO SCH (12:42)
--- NOTE | 2024-08-14 13:10 | P.PN ---
Subjective Progress Note Date: 08/14/24 History of present illness: This is a 68-year-old male with past medical history of dyslipidemia, diabetes, remote history of tobacco use and dependence, paroxysmal atrial fibrillation. We have been asked to evaluate the patient for atrial flutter with RVR. Patient follows with a paid search analyst in [place]. He states that he thought he was in atrial fibrillation his heart rate was going 150 then dropping down to 70. He also has shortness of breath especially with exertion. He states his blood pressures at home dropped down to the 70s systolic. He states he feels weak wit h any movements. He states this been going on for the past 3 to 4 months. Patient has been started on Cardizem drip. Patient did not go in and out of SVT during evaluation. Valsalva maneuver caused patient to convert to sinus rhythm. Currently his heart rate is 89, blood pressure 121/95, pulse ox 96% on room air. -EKG: SVT at 150 bpm -Chest x-ray: No acute findings. -Laboratory studies: WBC 10.8, hemoglobin 16.1. D-dimer 0.21. CO2 18, BUN 26 creatinine 0.86, potassium 4. Troponin negative x 1. proBNP 281. TSH 1.08. -Home cardiac medications: -Echocardiogram performed 05/13/2020: EF 50 to 55%, mild concentric left ventricular hypertrophy, mild MR and mild TR. Mild pulmonary hypertension. 08/12 Patient seen and examined on the cardiac stepdown unit. Cardizem drip is on hold. Beta-maritza is on hold. Patient is scheduled for EP study and possible ablation on . Blood pressure 121/65, heart rate 65, pulse ox 96% on room air. Patient is currently in sinus rhythm. Echocardiogram reveals technically difficult study. Normal LV size and systolic function. Mild mitral and tricuspid regurgitation. No pericardial effusion. No pulmonary hypertension. 08/13 Patient seen and examined. He is scheduled for EP study and possible ablation on . He remains on a Cardizem drip which will be continued until tomorrow morning at 11 AM. Telemetry is a sinus rhythm with ectopy. Patient denies chest pain or shortness of breath. No lightheadedness or dizziness. Bet a-maritza remains on hold. 08/14 Seen and examined. He is scheduled for EP study and possible ablation today. Patient has been maintained in a sinus rhythm. He has been on Cardizem drip to be discontinued this morning. He has not received any beta-blockers. Blood pressure 142/62, heart rate 65, pulse ox 95% on room air. Repeat blood work reveals hemoglobin 14.8, BUN 9 and creatinine 0.61. Physical examination: Gen: This is a 76-year-old male in no acute distress VS: reviewed HEENT: Head is atraumatic, normocephalic. Pupils equal, round. Sclerae is anicteric. NECK: Supple. No JVD. LUNGS: Clear to auscultation. No wheezes or rhonchi. No intercostal retractions. HEART: Regular rate and rhythm. Systolic murmur. ABDOMEN: Soft No tenderness. EXTREMITIES: No pedal edema. No calf tenderness. NEUROLOGICAL: Patient is awake, alert and oriented x3. Assessment: Recurrent SVT, incessant despite medical treatment Hypertension History of atrial flutter in the setting of PE in 2019 Dyslipidemia Diabetes mellitus History of tobacco use and dependence History of pulmonary embolism 2019 Plan: Continue patient's home cardiac medications Hold beta-maritza Cardizem drip to be discontinued tomorrow at 11 AM Schedule patient for EP study with possible RFA, possible cardioversion today with Dr. Stuart N.p.o. No beta-maritza to be given prior to EP study. Further recommendations to follow based upon clinical course Nurse practitioner note has been reviewed, I agree with documented findings and plan of care. Patient was seen and examined. Objective - Vital Signs Vital signs: Vital Signs Temp 98.9 F 08/14/24 07:43 Pulse 65 08/14/24 07:43 Resp 18 08/14/24 07:43 BP 142/62 08/14/24 07:43 Pulse Ox 95 08/14/24 07:43 FiO2 Intake & Output 08/13/24 08/14/24 08/14/24 18:59 06:59 18:59 Intake Total 896.083 240 Balance 896.083 240 Weight 110.6 kg Intake: Intake, IV Titration 120.083 Amount Diltiazem 125 mg In 120.083 Sodium Chloride 0.9% 100 ml @ 10 MG/HR 10 mls/hr IV .[id number] [facility] Rx#: [id number] Oral 776 240 Other: Voiding Method Toilet Toilet Toilet # Voids 1 2 # Bowel Movements 1 1 - Labs CBC & Chem 7: 08/14/24 06:14 08/14/24 06:14 Labs: Abnormal Lab Results - Last 24 Hours (Table) 08/13/24 08/13/24 08/13/24 Range/Units 09:23 16:28 20:00 Carbon Dioxide (22-30) mmol/L Creatinine (0.66-1.25) mg/dL Glucose 103 H (74-99) mg/dL POC Glucose (mg/dL) 154 H 133 H (70-110) mg/dL Calcium 8.1 L (8.4-10.2) mg/dL Total Protein 5.8 L (6.3-8.2) g/dL Albumin 3.4 L (3.5-5.0) g/dL 08/14/24 08/14/24 Range/Units 06:14 06:24 Carbon Dioxide 21 L (22-30) mmol/L Creatinine 0.61 L (0.66-1.25) mg/dL Glucose 112 H (74-99) mg/dL POC Glucose (mg/dL) 113 H (70-110) mg/dL Calcium 8.3 L (8.4-10.2) mg/dL Total Protein 6.0 L (6.3-8.2) g/dL Albumin (3.5-5.0) g/dL
[2024-08-14 13:30] LABS: Glucose,Whole Blood 75 mg/dL (70-110)
[2024-08-14 14:02] LABS: Glucose,Whole Blood 97 mg/dL (70-110)
[2024-08-14] MEDS ORDERED: SUCCINYLCHOLINE CHLORIDE 200 MG/10 ML VIAL IV ONE (14:03)
[2024-08-14] MEDS ORDERED: LIDOCAINE 1% INJ 10MG/ML (20 ML MDV) ONE (14:03)
[2024-08-14] MEDS ORDERED: GLYCOPYRROLATE 0.2 MG/ML 2 ML VIAL ONE (14:03)
[2024-08-14] MEDS ORDERED: ONDANSETRON 4 MG/2 ML VIAL ONE (14:03)
[2024-08-14] MEDS ORDERED: ROCURONIUM 10 MG/ML (5 ML VIAL) IV ONE (14:03)
[2024-08-14] MEDS ORDERED: NEOSTIGMINE 1 MG/ML 10 ML VIAL ONE (14:03)
[2024-08-14] MEDS ORDERED: PROPOFOL 10 MG/ML 20 ML VIAL IV ONE (14:03)
[2024-08-14] MEDS ORDERED: FUROSEMIDE 10 MG/ML 2 ML VIAL ONE (14:03)
[2024-08-14] MEDS ORDERED: ISOPROTERENOL 250 MCG/1.25 ML SYR IV ONE (14:03)
[2024-08-14] MEDS ORDERED: HEPARIN SODIUM,PORCINE 10,000 UNIT/ML 1 ML VIAL ONE (14:03)
[2024-08-14] MEDS ORDERED: fentaNYL (PF) 50 MCG/ML 2 ML AMP ONE (14:03)
[2024-08-14] MEDS ORDERED: MIDAZOLAM 2 MG/2 ML VIAL ONE (14:03)
[2024-08-14] MEDS ORDERED: PHENYLEPHRINE-0.9% NACL SYG 1,000 MCG/10 ML SYRINGE ONE (14:03)
[2024-08-14] MEDS: IV FLUID CONTINUATION 950 ML IV ONE (14:21)
[2024-08-14] MEDS: LIDOCAINE 1% INJ 10MG/ML (20 ML MDV) SQ ONE (14:48)
[2024-08-14] MEDS: ROPIVACAINE 5 MG/ML 30 ML VIAL MISCELLANE ONE (14:57)
[2024-08-14] MEDS: HEPARIN SODIUM (1,000 UNIT/ML) 1,000 UNIT in SODIUM CHLORIDE 0.9% 1,000 ML IRRIGATION ONE (17:13)
[2024-08-14] MEDS ORDERED: ACETAMINOPHEN TAB 325 MG TAB PO PRN (17:33)
--- NOTE | 2024-08-14 17:41 | P.PN ---
Subjective Progress Note Date: 08/14/24 Hospital Course: Patient is a very pleasant 68-year-old male with a past medical history of atrial fibrillation on anticoagulation with Eliquis, SVT, hypertension, hyperlipidemia, previous DVT and PE, and insulin-dependent diabetes mellitus. He presented to the emergency department with a chief complaint of palpitations and shortness of breath. Patient reports the symptoms began last night and progressively worsened. He reports symptoms similar to previous episodes of A- fib RVR but reports typically resolves on its own and this time was persistent. He reports significant worsening shortness of breath with any exertion and even has to stop and take a break with walking to the restroom. He denies having any fevers, chills, dizziness, lightheadedness, changes in vision or hearing, chest pain, palpitations, cough or congestion, nausea, vomiting, or experiencing any numbness/tingling/weakness/swelling in his extremities. Upon arrival to our facility, patient underwent evaluation in the emergency department. Vital signs upon arrival show blood pressure 120/76, heart rate 83, respiratory rate 97.4 F, and SpO2 of 99% on room air. EKG completed showing atrial fibrillation at 150 bpm with an incomplete right bundle branch block. Chest x-ray completed negative for acute cardiopulmonary process. Labs completed and reviewed. CBC showing mild leukocytosis with WBC count of 10.8 otherwise normal findings. Coagulation profile normal findings. D-dimer negative at 0.21. BMP showing hypocarbia with bicarb of 18 and mild prerenal azotemia with BUN of 26. Blood glucose 248. Magnesium 1.9. Liver profile unremarkable. Troponin was 0.019 wi th proBNP of 281. TSH 1.080. Patient was started on Cardizem infusion and admitted under our services with consultation to cardiology. Patient scheduled for cardioversion later today with Dr. Stuart. Physical exam: Patient seen and fully evaluated at bedside this morning. He remains on Cardizem infusion at 5 mg/h at this time. Ventricular rate controlled with heart rate in the 60s. Patient reports full cessation of previous reported diarrhea after single dose of Imodium. Patient is awaiting to undergo cardioversion later today. Vital signs reviewed and stable. General: Nontoxic, no distress and appears stated age. Derm: Skin warm and dry, normal coloration for ethnicity. Head: Atraumatic, normocephalic and symmetric. Eyes: EOM's intact, no lid lag, and anicteric sclera Mouth: no lip lesions, mucus membranes moist Cardiovascular: Irregularly irregular, systolic murmur, positive posterior tibial pulses bilaterally, and cap refill < 2 seconds. Lungs: Respirations even, regular, and unlabored on room air. Lungs CTA bilaterally, no rhonchi, no rales, no wheezing, and no accessory muscle usage. Abdominal: soft, nontender to palpation, no guarding, no appreciable organomegaly Ext: ROM intact. No gross muscle atrophy, no edema, no contractures Neuro: Speech clear, face symmetrical and CN II-XII grossly intact with no noted focal neuro deficits Psych: Alert and oriented to person, place, time, and situation. Appropriate and pleasant affect. Assessment and Plan of Care: Recurrent SVT Paroxysnal atrial fibrillation History of DVT and PE Cardiology consulted, stating pt to be taken for cardioversion later today with Dr. Stuart. Continue Cardizem infusion, titrate 5 mg/h to 15 mg/h to obtain goal ventricular rate of 70-90. Currently running at 5 mg/h Continue Eliquis 5 mg twice daily. Continuous telemetry monitoring. Echocardiogram revealing EF of 55% with mild mitral and tricuspid regurgitation and no pericardial effusion. Diabetes mellitus with hyperglycemia Continue Rybelsus 14 mg daily, Levemir 10 units nightly, and patient placed on glycemic protocol with NovoLog sliding scale. Metformin held at this time. Follow-up on hemoglobin A1c. Diarrhea, resolved -C. difficile negative. Hypertension Monitor vital signs. Patient on Cardizem infusion. Metoprolol held per cardiology. Hyperlipidemia Continue daily medication regimen with atorvastatin 20 mg daily. Data and imaging reviewed: Labs completed and reviewed. CBC unremarkable. BMP showed mild hypocarbia with bicarb of 21 otherwise normal findings. Blood glucose 112. Magnesium 2.0. Blood glucose 103. Magnesium 2.1. Liver profile unremarkable with exception of mild hypoalbuminemia with albumin of 3.4. Vital signs reviewed and stable blood pressure 142/62, heart rate 65, respiratory rate 18, temp 98.9 F, and SpO2 of 95% on room air. CODE STATUS: Full code DVT prophylaxis: Eliquis Anticipated discharge date: Pending clinical course Anticipated discharge place: Home Patient was seen independently by Nurse Practitioner. This document was prepared using [employer] dictation software. Please allow for errors in embedded systems designer while rare they do occur. Rufus Barnes HOSPITAL CLEANER rendered care for this patient independently, reviewed the findings and plan as documented in the note above and agree with plan. I did not physically speak with or examine the patient on this date. Objective - Vital Signs Vital signs: Vital Signs Temp 98.9 F 08/14/24 07:43 Pulse 65 08/14/24 07:43 Resp 18 08/14/24 07:43 BP 142/62 08/14/24 07:43 Pulse Ox 95 08/14/24 07:43 FiO2 Intake & Output 08/13/24 08/14/24 08/14/24 18:59 06:59 18:59 Intake Total 896.083 240 Balance 896.083 240 Weight 110.6 kg Intake: Intake, IV Titration 120.083 Amount Diltiazem 125 mg In 120.083 Sodium Chloride 0.9% 100 ml @ 10 MG/HR 10 mls/hr IV .[id number] [facility] Rx#: [id number] Oral 776 240 Other: Voiding Method Toilet Toilet Toilet # Voids 1 2 # Bowel Movements 1 1 - Labs CBC & Chem 7: 08/14/24 06:14 08/14/24 06:14 Labs: Abnormal Lab Results - Last 24 Hours (Table) 08/13/24 08/13/24 08/13/24 Range/Units 09:23 16:28 20:00 Carbon Dioxide (22-30) mmol/L Creatinine (0.66-1.25) mg/dL Glucose 103 H (74-99) mg/dL POC Glucose (mg/dL) 154 H 133 H (70-110) mg/dL Calcium 8.1 L (8.4-10.2) mg/dL Total Protein 5.8 L (6.3-8.2) g/dL Albumin 3.4 L (3.5-5.0) g/dL 08/14/24 08/14/24 Range/Units 06:14 06:24 Carbon Dioxide 21 L (22-30) mmol/L Creatinine 0.61 L (0.66-1.25) mg/dL Glucose 112 H (74-99) mg/dL POC Glucose (mg/dL) 113 H (70-110) mg/dL Calcium 8.3 L (8.4-10.2) mg/dL Total Protein 6.0 L (6.3-8.2) g/dL Albumin (3.5-5.0) g/dL
--- NOTE | 2024-08-14 17:45 | P.EPPROC ---
- EP Procedure Note Electrophysiology Procedure Note: Admitting diagnosis Recurrent AV carlos reentrant tachycardia, almost incessant requiring IV Cardizem drip for control on this admission History of typical atrial flutter in 2019, documented in 2020 Final diagnosis Easily inducible AV carlos reentry with Isopril, spontaneously, with RVR Status post successful ablation for AV carlos reentry and the tachycardia was rendered noninducible. No evidence for slow pathway conduction following that Frequent PACs noted in sinus rhythm pre as well as post ablation Following that, on Isopril infusion spontaneous induction of typical atrial flutter Ablation for typical atrial flutter, cavotricuspid isthmus ablation with c omplete bidirectional block Morbid obesity, history of pulmonary embolism and DVT in 2020, on Eliquis 5 mg twice daily Procedure detail Patient was brought to the EP lab in a fasting state. Written informed consent was obtained prior to the procedure. The first part of the procedure involving mapping and ablation for AV carlos reentry was performed under conscious sedation. Venous accesses were obtained, 3 femoral venous accesses in the left groin and 1 femoral venous access in the right groin under fluoroscopic guidance. Since the patient had morbid obesity each time and extra firm guide wire, advantage wire was placed in the central venous circulation dilation of the tissue overlying the veins was performed followed by sheath placement in the right groin and then sutured to the skin. This took extra duration of time. Diagnostic catheters were positioned in the high right atrium His bundle area coronary sinus and right ventricle. The patient had very frequent PACs and evidence of antegrade slow pathway conduction spontaneously. IV Cardizem had been discontinued for at least 4 hours prior. Baseline VT interval was about 172-198 ms, QRS 125 ms, QT 380 ms AH interval 93 233 ms and baseline, HV interval 35 ms AV node Wenckebach block 440 ms Para-Hisian pacing was performed and carlos response was noted Sinus node recovery times were 879 and 772 ms PACs made this assessment difficult Straight pacing was performed from the high right atrium and from the coronary sinus. Extrastimulation was performed When Isopril was started AV carlos reentry was spontaneously induced with a cycle length of 280 ms. Ventricular pacing during SVT resulted in termination and resumption of SVT. SVT resolved when Isopril was stopped A long sheath was then placed along with a irrigated tip catheter on the right groin. Mapping of the slow pathway, fast pathway, His bundle area and coronary sinus os was performed RF ablation was performed anterior to the coronary sinus just in front of the coronary sinus os. This resulted in development of junctional rhythm, slow junctional rhythm RF ablations were performed around this area until there were no further junctional beats noted. Good power in contact force achieved and AV carlos reentry was rendered noninducible both on and off Isopril Thereafter when Isopril was given once again and high doses, typical atrial flutter, cavotricuspid block was induced the patient had a past history of typical atrial flutter that was documented in 2019 Therefore general anesthesia was performed Intracardiac echo was performed The cavotricuspid isthmus was mapped electroanatomical No pericardial effusion is noted LV function was normal intracardiac echo The complete RF line was block was made from the tricuspid valve to the IVC. No anatomic gaps were noted at the end of this ablation Pacing maneuvers confirmed bidirectional block with differential pacing. Isthmus conduction time greater than 154 ms in either direction At the end all sheaths were removed and Vascade closure devices applied with good hemostasis A Vila catheter was placed and IV Lasix 40 mg was administered Plan Hold metoprolol at this time Continue Eliquis lifelong
[2024-08-14 18:36] LABS: Glucose,Whole Blood 79 mg/dL (70-110)
[2024-08-14] MEDS: ACETAMINOPHEN IV (For NPO) 1,000 MG in EMPTY BAG 1 BAG IVPB ONE (19:01)
[2024-08-14 20:17] LABS: Glucose,Whole Blood 126 mg/dL (70-110)
[2024-08-15 06:02] LABS: Glucose,Whole Blood 101 mg/dL (70-110)
[2024-08-15 07:00] LABS: African American GFR (CKD) >90 (>60 ml/min/1.73 sqM); Anion Gap 15 mmol/L; Blood Urea Nitrogen 12 mg/dL (9-20); Calcium 8.3 mg/dL (8.4-10.2); Carbon Dioxide 19 mmol/L (22-30); Chloride 103 mmol/L (98-107); Glucose 104 mg/dL (74-99); Magnesium 1.7 mg/dL (1.6-2.3); Non-African American GFR(CKD) 90 (>60 ml/min/1.73 sqM); Sodium 137 mmol/L (137-145)
[2024-08-15 07:03] LABS: Potassium 4.4 mmol/L (3.5-5.1)
[2024-08-15 07:37] LABS: HGB 14.8 gm/dL (13.0-17.5); MCH 29.9 pg (25.0-35.0); MCHC 33.7 g/dL (31.0-37.0); MCV 88.7 fL (80.0-100.0); Mean Platelet Volume 7.8; Platelet Count 149 k/uL (150-450); RBC 4.96 m/uL (4.30-5.90); RDW 13.3 % (11.5-15.5); WBC 10.9 k/uL (3.8-10.6)
[2024-08-15] MEDS: MAGNESIUM SULFATE-D5W PMX 1 GM in DEXTROSE/WATER 1 100ML.BAG IVPB SCH (09:44)
--- NOTE | 2024-08-15 11:21 | XR ---
EXAMINATION TYPE: XR chest 1V portable DATE OF EXAM: 08/15/2024 11:13 AM COMPARISON: 08/11/2024 CLINICAL INDICATION: Male, 68 years old with history of cough, , FINDINGS: Heart limits of normal in size. Interstitial prominence. Patchy peripheral left basilar opacity. No s izable pleural effusion. IMPRESSION: Patchy peripheral left basilar opacity, possible developing pneumonia. [facility], Workstation: [facility], 08/15/2024 11:18 AM
[2024-08-15 11:40] LABS: Glucose,Whole Blood 105 mg/dL (70-110)
[2024-08-15] MEDS: ACETAMINOPHEN TAB 325 MG TAB PO PRN (11:51)
[2024-08-15 12:48] LABS: Influenza A Not Detected (Not Detectd); Influenza B Not Detected (Not Detectd); RSV Detected (Not Detectd)
[2024-08-15] MEDS: AZITHROMYCIN 500 MG in SODIUM CHLORIDE 0.9% 250 ML IVPB SCH (13:47)
--- NOTE | 2024-08-15 13:58 | P.PN ---
Subjective Progress Note Date: 08/15/24 Hospital Course: Patient is a very pleasant 68-year-old male with a past medical history of atrial fibrillation on anticoagulation with Eliquis, SVT, hypertension, hyperlipidemia, previous DVT and PE, and insulin-dependent diabetes mellitus. He presented to the emergency department with a chief complaint of palpitations and shortness of breath. Patient reports the symptoms began last night and progressively worsened. He reports symptoms similar to previous episodes of A- fib RVR but reports typically resolves on its own and this time was persistent. He reports significant worsening shortness of breath with any exertion and even has to stop and take a break with walking to the restroom. He denies having any fevers, chills, dizziness, lightheadedness, changes in vision or hearing, chest pain, palpitations, cough or congestion, nausea, vomiting, or experiencing any numbness/tingling/weakness/swelling in his extremities. Upon arrival to our facility, patient underwent evaluation in the emergency department. Vital signs upon arrival show blood pressure 120/76, heart rate 83, respiratory rate 97.4 F, and SpO2 of 99% on room air. EKG completed showing atrial fibrillation at 150 bpm with an incomplete right bundle branch block. Chest x-ray completed negative for acute cardiopulmonary process. Labs completed and reviewed. CBC showing mild leukocytosis with WBC count of 10.8 otherwise normal findings. Coagulation profile normal findings. D-dimer negative at 0.21. BMP showing hypocarbia with bicarb of 18 and mild prerenal azotemia with BUN of 26. Blood glucose 248. Magnesium 1.9. Liver profile unremarkable. Troponin was 0.019 wi th proBNP of 281. TSH 1.080. Patient was started on Cardizem infusion and admitted under our services with consultation to cardiology. Patient scheduled for cardioversion later today with Dr. Stuart. Physical exam: Patient seen and fully evaluated at bedside this morning. He reports uncontrolled cough throughout the night and morning. He states started yesterday just prior to ablation feeling a little scratchy but significantly worsening throughout the night and morning. States he has been using his incentive spirometer and demonstrated use at bedside. Discussed with patient plans for chest x-ray and viral swabbing and he is in agreement. He denies shortness of breath at rest but does report feeling a little winded with exertion. Denies any other complaints at this time. Vital signs reviewed and stable. General: Nontoxic, no distress and appears stated age. Derm: Skin warm and dry, normal coloration for ethnicity. Head: Atraumatic, normocephalic and symmetric. Eyes: EOM's intact, no lid lag, and anicteric sclera Mouth: no lip lesions, mucus membranes moist Cardiovascular: regular rate and rhythm, systolic murmur, positive posterior tibial pulses bilaterally, and cap refill < 2 seconds. Lungs: Respirations even, regular, and unlabored on room air. Lungs CTA bilaterally, no rhonchi, no rales, no wheezing, and no accessory muscle usage. Abdominal: soft, nontender to palpation, no guarding, no appreciable organomegaly Ext: ROM intact. No gross muscle atrophy, no edema, no contractures Neuro: Speech clear, face symmetrical and CN II-XII grossly intact with no noted focal neuro deficits Psych: Alert and oriented to person, place, time, and situation. Appropriate and pleasant affect. Assessment and Plan of Care: Recurrent SVT Paroxysnal atrial fibrillation/flutter History of DVT and PE Cardiology following, and discussed plan of care follows with Dr. Stuart and cardiology [place]. Patient underwent successful ablation with Dr. Stuart on 08/14/2024. Successful ablation for AV carlos reentry and the tachycardia was rendered noninducible with post ablation rhythm of normal sinus rhythm with frequent PACs. Continue Eliquis 5 mg twice daily. Continuous telemetry monitoring. Echocardiogram revealing EF of 55% with mild mitral and tricuspid regurgitation and no pericardial effusion. New onset cough and congestion -Order placed for stat chest x-ray resulting positive for patchy peripheral left basilar opacity concerning for developing pneumonia. -Patient started on IV antibiotics with Rocephin 2 g daily and a Zithromax 500 mg daily. -Obtain procalcitonin, if negative may discontinue antibiotics. -Cepheid 4 Plex viral panel to be obtained. Diabetes mellitus with hyperglycemia Continue Rybelsus 14 mg daily, Levemir 10 units nightly, and patient placed on glycemic protocol with NovoLog sliding scale. Metformin held at this time. Follow-up on hemoglobin A1c. Diarrhea, resolved -C. difficile negative. Diarrhea resolved after single dose of Imodium Hypertension Monitor vital signs. Metoprolol held per cardiology. Hyperlipidemia Continue daily medication regimen with atorvastatin 20 mg daily. Data and imaging reviewed: Labs completed and reviewed. CBC showing mild leukocytosis with WBC count of 10.9 and thrombocytopenia with platelet count of 149. BMP showing hypocarbia with bicarb of 19. Blood glucose 104. Magnesium 1.7. Vital signs reviewed and stable blood pressure 122/61, heart rate 84, respiratory rate 16, temp 99.6 F, and SpO2 of 92% on room air. CODE STATUS: Full code DVT prophylaxis: Eliquis Anticipated discharge date: Pending clinical course Anticipated discharge place: Home Patient was seen independently by Nurse Practitioner. This document was prepared using [employer] dictation software. Please allow for errors in welder/fabricator while rare they do occur. Rufus Barnes NP rendered care for this patient independently, reviewed the findings and plan as documented in the note above and agree with plan. I did not physically speak with or examine the patient on this date. Objective - Vital Signs Vital signs: Vital Signs Temp 97.4 F L 08/15/24 08:01 Pulse 80 08/15/24 08:01 Resp 16 08/15/24 08:01 BP 147/66 08/15/24 08:01 Pulse Ox 96 08/15/24 08:01 FiO2 Intake & Output 08/14/24 08/15/24 08/15/24 18:59 06:59 18:59 Intake Total 7269.103 1552 Output Total 2500 775 Balance -1230.417 665 Weight 110.6 kg 108.3 kg Intake: IV 1171 Intake, IV Titration 98.583 Amount Diltiazem 125 mg In 98.583 Sodium Chloride 0.9% 100 ml @ 10 MG/HR 10 mls/hr IV .[id number] [facility] Rx#: [id number] Oral 1440 Output: Urine 2500 775 Other: Voiding Method Toilet # Voids 1 - Labs CBC & Chem 7: 08/15/24 06:25 08/15/24 06:25 Labs: Abnormal Lab Results - Last 24 Hours (Table) 08/14/24 08/15/24 08/15/24 Range/Units 20:16 06:25 06:25 WBC 10.9 H (3.8-10.6) k/uL Plt Count 149 L (150-450) k/uL Carbon Dioxide 19 L (22-30) mmol/L Glucose 104 H (74-99) mg/dL POC Glucose (mg/dL) 126 H (70-110) mg/dL Calcium 8.3 L (8.4-10.2) mg/dL
--- NOTE | 2024-08-15 15:02 | P.PN ---
Subjective Progress Note Date: 08/15/24 History of present illness: This is a 68-year-old male with past medical history of dyslipidemia, diabetes, remote history of tobacco use and dependence, paroxysmal atrial fibrillation. We have been asked to evaluate the patient for atrial flutter with RVR. Patient follows with a art model in [place]. He states that he thought he was in atrial fibrillation his heart rate was going 150 then dropping down to 70. He also has shortness of breath especially with exertion. He states his blood pressures at home dropped down to the 70s systolic. He states he feels weak wit h any movements. He states this been going on for the past 3 to 4 months. Patient has been started on Cardizem drip. Patient did not go in and out of SVT during evaluation. Valsalva maneuver caused patient to convert to sinus rhythm. Currently his heart rate is 89, blood pressure 121/95, pulse ox 96% on room air. -EKG: SVT at 150 bpm -Chest x-ray: No acute findings. -Laboratory studies: WBC 10.8, hemoglobin 16.1. D-dimer 0.21. CO2 18, BUN 26 creatinine 0.86, potassium 4. Troponin negative x 1. proBNP 281. TSH 1.08. -Home cardiac medications: -Echocardiogram performed 05/13/2020: EF 50 to 55%, mild concentric left ventricular hypertrophy, mild MR and mild TR. Mild pulmonary hypertension. 08/12 Patient seen and examined on the cardiac stepdown unit. Cardizem drip is on hold. Beta-maritza is on hold. Patient is scheduled for EP study and possible ablation on . Blood pressure 121/65, heart rate 65, pulse ox 96% on room air. Patient is currently in sinus rhythm. Echocardiogram reveals technically difficult study. Normal LV size and systolic function. Mild mitral and tricuspid regurgitation. No pericardial effusion. No pulmonary hypertension. 08/13 Patient seen and examined. He is scheduled for EP study and possible ablation on . He remains on a Cardizem drip which will be continued until tomorrow morning at 11 AM. Telemetry is a sinus rhythm with ectopy. Patient denies chest pain or shortness of breath. No lightheadedness or dizziness. Bet a-maritza remains on hold. 08/14 Seen and examined. He is scheduled for EP study and possible ablation today. Patient has been maintained in a sinus rhythm. He has been on Cardizem drip to be discontinued this morning. He has not received any beta-blockers. Blood pressure 142/62, heart rate 65, pulse ox 95% on room air. Repeat blood work reveals hemoglobin 14.8, BUN 9 and creatinine 0.61. 08/15 Yesterday, patient underwent ablation of the AV carlos reentry and tachycardia. Patient states he is feeling fine this morning but he is noted to have significant coughing. He was not coughing yesterday. We have asked attending to address the cough and patient was tested came back positive for RSV. Heart rate 80, blood pressure 147/66, pulse ox 96% on room air. Patient is in a sinus rhythm. He is noted to have occasional blocked PAC. Physical examination: Gen: This is a 76-year-old male in no acute distress VS: reviewed HEENT: Head is atraumatic, normocephalic. Pupils equal, round. Sclerae is anicteric. NECK: Supple. No JVD. LUNGS: Clear to auscultation. No wheezes or rhonchi. No intercostal retractions. HEART: Regular rate and rhythm. Systolic murmur. ABDOMEN: Soft No tenderness. EXTREMITIES: No pedal edema. No calf tenderness. NEUROLOGICAL: Patient is awake, alert and oriented x3. Assessment: Recurrent SVT, incessant despite medical treatment Hypertension History of atrial flutter in the setting of PE in 2019 Dyslipidemia Diabetes mellitus History of tobacco use and dependence History of pulmonary embolism 2019 Plan: Continue patient's home cardiac medications Discontinue beta-maritza and omega-3 at discharge Further recommendations to follow based upon clinical course Nurse practitioner note has been reviewed, I agree with documented findings and plan of care. Patient was seen and examined. Objective - Vital Signs Vital signs: Vital Signs Temp 97.4 F L 08/15/24 08:01 Pulse 80 08/15/24 08:01 Resp 16 08/15/24 08:01 BP 147/66 08/15/24 08:01 Pulse Ox 96 08/15/24 08:01 FiO2 Intake & Output 08/14/24 08/15/24 08/15/24 18:59 06:59 18:59 Intake Total 1857.659 6767 Output Total 2500 775 Balance -1230.417 665 Weight 110.6 kg 108.3 kg Intake: IV 1171 Intake, IV Titration 98.583 Amount Diltiazem 125 mg In 98.583 Sodium Chloride 0.9% 100 ml @ 10 MG/HR 10 mls/hr IV .[id number] [facility] Rx#: [id number] Oral 1440 Output: Urine 2500 775 Other: Voiding Method Toilet # Voids 1 - Labs CBC & Chem 7: 08/15/24 06:25 08/15/24 06:25 Labs: Abnormal Lab Results - Last 24 Hours (Table) 08/14/24 08/15/24 08/15/24 Range/Units 20:16 06:25 06:25 WBC 10.9 H (3.8-10.6) k/uL Plt Count 149 L (150-450) k/uL Carbon Dioxide 19 L (22-30) mmol/L Glucose 104 H (74-99) mg/dL POC Glucose (mg/dL) 126 H (70-110) mg/dL Calcium 8.3 L (8.4-10.2) mg/dL
[2024-08-15 16:47] LABS: Glucose,Whole Blood 140 mg/dL (70-110)
[2024-08-15] MEDS: guaiFENesin-Coden 100-10MG/5ML 10 ML CUP PO PRN (17:05)
[2024-08-15 20:20] LABS: Glucose,Whole Blood 142 mg/dL (70-110)
[2024-08-16 06:05] LABS: Glucose,Whole Blood 118 mg/dL (70-110)
[2024-08-16 06:32] LABS: HCT 41.5 % (39.0-53.0); HGB 13.9 gm/dL (13.0-17.5); MCH 29.1 pg (25.0-35.0); MCHC 33.5 g/dL (31.0-37.0); MCV 86.8 fL (80.0-100.0); Mean Platelet Volume 7.5; Platelet Count 185 k/uL (150-450); RBC 4.78 m/uL (4.30-5.90); RDW 13.7 % (11.5-15.5); WBC 11.1 k/uL (3.8-10.6)
[2024-08-16 07:29] LABS: African American GFR (CKD) >90 (>60 ml/min/1.73 sqM); Anion Gap 16 mmol/L; Blood Urea Nitrogen 18 mg/dL (9-20); Calcium 8.7 mg/dL (8.4-10.2); Carbon Dioxide 18 mmol/L (22-30); Chloride 99 mmol/L (98-107); Glucose 108 mg/dL (74-99); Magnesium 2.4 mg/dL (1.6-2.3); Non-African American GFR(CKD) 90 (>60 ml/min/1.73 sqM); Potassium 3.8 mmol/L (3.5-5.1); Sodium 133 mmol/L (137-145)
--- NOTE | 2024-08-16 08:16 | P.PN ---
Subjective Progress Note Date: 08/16/24 History of present illness: This is a 68-year-old male with past medical history of dyslipidemia, diabetes, remote history of tobacco use and dependence, paroxysmal atrial fibrillation. We have been asked to evaluate the patient for atrial flutter with RVR. 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 He states that he thought he was in atrial fibrillation his heart rate was going 150 then dropping down to 70. He also has shortness of breath especially with exertion. He states his blood pressures at home dropped down to the 70s systolic. He states he feels weak wit h any movements. He states this been going on for the past 3 to 4 months. Patient has been started on Cardizem drip. Patient did not go in and out of SVT during evaluation. Valsalva maneuver caused patient to convert to sinus rhythm. Currently his heart rate is 89, blood pressure 121/95, pulse ox 96% on room air. -EKG: SVT at 150 bpm -Chest x-ray: No acute findings. -Laboratory studies: WBC 10.8, hemoglobin 16.1. D-dimer 0.21. CO2 18, BUN 26 creatinine 0.86, potassium 4. Troponin negative x 1. proBNP 281. TSH 1.08. -Home cardiac medications: -Echocardiogram performed 05/13/2020: EF 50 to 55%, mild concentric left ventricular hypertrophy, mild MR and mild TR. Mild pulmonary hypertension. 08/12 Patient seen and examined on the cardiac stepdown unit. Cardizem drip is on hold. Beta-maritza is on hold. Patient is scheduled for EP study and possible ablation on . Blood pressure 121/65, heart rate 65, pulse ox 96% on room air. Patient is currently in sinus rhythm. Echocardiogram reveals technically difficult study. Normal LV size and systolic function. Mild mitral and tricuspid regurgitation. No pericardial effusion. No pulmonary hypertension. 08/13 Patient seen and examined. He is scheduled for EP study and possible ablation on . He remains on a Cardizem drip which will be continued until tomorrow morning at 11 AM. Telemetry is a sinus rhythm with ectopy. Patient denies chest pain or shortness of breath. No lightheadedness or dizziness. Bet a-maritza remains on hold. 08/14 Seen and examined. He is scheduled for EP study and possible ablation today. Patient has been maintained in a sinus rhythm. He has been on Cardizem drip to be discontinued this morning. He has not received any beta-blockers. Blood pressure 142/62, heart rate 65, pulse ox 95% on room air. Repeat blood work reveals hemoglobin 14.8, BUN 9 and creatinine 0.61. 08/15 Yesterday, patient underwent ablation of the AV carlos reentry and tachycardia. Patient states he is feeling fine this morning but he is noted to have significant coughing. He was not coughing yesterday. We have asked attending to address the cough and patient was tested came back positive for RSV. Heart rate 80, blood pressure 147/66, pulse ox 96% on room air. Patient is in a sinus rhythm. He is noted to have occasional blocked PAC. 08/16 Patient seen and examined. He is in isolation for RSV. He has been started on IV antibiotics, cough medicine. He had a change in his rhythm with tachycardia with a wenckeback block. Patient denies palpitations. No lightheadedness or dizziness. No chest pain. Other than continued cough, he is feeling well. Physical examination: Gen: This is a 76-year-old male in no acute distress VS: reviewed HEENT: Head is atraumatic, normocephalic. Pupils equal, round. Sclerae is anicteric. NECK: Supple. No JVD. LUNGS: Clear to auscultation. No wheezes or rhonchi. No intercostal retractions. HEART: Regular rate and rhythm. Systolic murmur. ABDOMEN: Soft No tenderness. EXTREMITIES: No pedal edema. No calf tenderness. NEUROLOGICAL: Patient is awake, alert and oriented x3. Assessment: Recurrent SVT, incessant despite medical treatment Hypertension History of atrial flutter in the setting of PE in 2019 Dyslipidemia Diabetes mellitus History of tobacco use and dependence History of pulmonary embolism 2019 Episodes of slow atrial tachycardia with episodes of slow wenckeback block Episodes of wenckeback block in sinus rhythm RSV Plan: Continue patient's home cardiac medications Discontinue beta-maritza and omega-3 at discharge Continue current cardiac medications and continue telemetry monitoring Further recommendations to follow based upon clinical course Nurse practitioner note has been reviewed, I agree with documented findings and plan of care. Patient was seen and examined. Objective - Vital Signs Vital signs: Vital Signs Temp 98.1 F 08/15/24 19:40 Pulse 79 02/01/25 04:30 Resp 18 08/16/24 04:30 BP 143/71 08/16/24 04:30 Pulse Ox 94 L 08/16/24 04:30 FiO2 Intake & Output 08/15/24 08/16/24 08/16/24 18:59 06:59 18:59 Intake Total 140 Balance 140 Weight 108.6 kg Intake: IV 20 Invasive Line 1 10 Invasive Line 2 10 Oral 120 Other: Voiding Method Toilet Toilet # Voids 2 3 # Bowel Movements 1 - Labs CBC & Chem 7: 08/16/24 06:12 08/16/24 06:12 Labs: Abnormal Lab Results - Last 24 Hours (Table) 08/15/24 08/15/24 08/15/24 Range/Units 11:02 16:46 20:18 WBC (3.8-10.6) k/uL Sodium (137-145) mmol/L Carbon Dioxide (22-30) mmol/L Glucose (74-99) mg/dL POC Glucose (mg/dL) 140 H 142 H (70-110) mg/dL Magnesium (1.6-2.3) mg/dL RSV (PCR) Detected A (Not Detectd) 08/16/24 08/16/24 08/16/24 Range/Units 06:03 06:12 06:12 WBC 11.1 H (3.8-10.6) k/uL Sodium 133 L (137-145) mmol/L Carbon Dioxide 18 L (22-30) mmol/L Glucose 108 H (74-99) mg/dL POC Glucose (mg/dL) 118 H (70-110) mg/dL Magnesium 2.4 H (1.6-2.3) mg/dL RSV (PCR) (Not Detectd)
--- NOTE | 2024-08-16 11:01 | P.PN ---
Subjective Progress Note Date: 08/16/24 Subjective: Patient seen and examined at bedside. No acute events overnight. Pertinent positives and negatives as discussed above, a complete review of systems was performed and all other systems are negative. Vitals Signs Reviewed. General: Nontoxic, no distress, appears at stated age Derm: Warm, dry Head: Atraumatic, normocephalic, symmetric Eyes: EOMI, no lid lag, anicteric sclera Mouth: No lip lesion, mucus membranes moist Cardiovascular: S1S2 reg, no murmur Lungs: CTA bilateral, no rhonchi, no rales, no accessory muscle use Abdominal: Soft, nontender to palpation, no guarding, no appreciable organomegaly Ext: No gross muscle atrophy, no edema, no contractures Neuro: CN II-XI grossly intact, no focal neuro deficits Psych: Alert, oriented, appropriate affect Data Reviewed Today: Pertinent Labs: WBC 11.1, sodium 133, bicarb 18, anion gap 16, creatinine 0.82 Imaging: EKG independently interpreted from this morning, shows likely high- grade AV block Assessment and Plan: Active: Recurrent SVT History of atrial flutter AV block, Wenckebach 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 -Cardiology note reviewed, continue off of beta-blockers -Continue telemetry -Continue Eliquis 5 mg twice daily RSV Acute hypoxic respiratory failure Suspected underlying bacterial pneumonia -Procalcitonin pending -Wean oxygen -Consider discontinuing IV ceftriaxone and azithromycin Type 2 diabetes -Continue Levemir 10 units nightly, sliding scale insulin, monitor for hypoglycemia -Continue Farxiga 10 mg daily -Hold semaglutide Resolved: Diarrhea Chronic: Hypertension Dyslipidemia DVT ppx: Eliquis Code status: Full code Anticipated discharge place: Pending clinical course Anticipated discharge time: Pending clinical course Objective - Vital Signs Vital signs: Vital Signs Temp 98.2 F 08/16/24 08:22 Pulse 48 L 08/16/24 08:22 Resp 18 08/16/24 08:22 BP 148/61 08/16/24 08:22 Pulse Ox 97 08/16/24 08:22 FiO2 Intake & Output 08/15/24 08/16/24 08/16/24 18:59 06:59 18:59 Intake Total 140 20 Balance 140 20 Weight 108.6 kg Intake: IV 20 20 Invasive Line 1 10 10 Invasive Line 2 10 10 Oral 120 Other: Voiding Method Toilet Toilet Toilet # Voids 2 3 1 # Bowel Movements 1 1 - Labs CBC & Chem 7: 08/16/24 06:12 08/16/24 06:12 Labs: Abnormal Lab Results - Last 24 Hours (Table) 08/15/24 08/15/24 08/15/24 Range/Units 11:02 16:46 20:18 WBC (3.8-10.6) k/uL Sodium (137-145) mmol/L Carbon Dioxide (22-30) mmol/L Glucose (74-99) mg/dL POC Glucose (mg/dL) 140 H 142 H (70-110) mg/dL Magnesium (1.6-2.3) mg/dL RSV (PCR) Detected A (Not Detectd) 08/16/24 08/16/24 08/16/24 Range/Units 06:03 06:12 06:12 WBC 11.1 H (3.8-10.6) k/uL Sodium 133 L (137-145) mmol/L Carbon Dioxide 18 L (22-30) mmol/L Glucose 108 H (74-99) mg/dL POC Glucose (mg/dL) 118 H (70-110) mg/dL Magnesium 2.4 H (1.6-2.3) mg/dL RSV (PCR) (Not Detectd)
[2024-08-16 11:28] LABS: Glucose,Whole Blood 171 mg/dL (70-110)
[2024-08-16 16:39] LABS: Glucose,Whole Blood 143 mg/dL (70-110)
[2024-08-16 20:05] LABS: Glucose,Whole Blood 243 mg/dL (70-110)
[2024-08-17 06:00] LABS: Glucose,Whole Blood 112 mg/dL (70-110)
[2024-08-17 07:34] LABS: Basophils # (A) 0.1 k/uL (0-0.2); Basophils % (A) 1 %; Eosinophils # (A) 0.1 k/uL (0-0.7); Eosinophils % (A) 1 %; HCT 40.6 % (39.0-53.0); HGB 13.3 gm/dL (13.0-17.5); Lymphocytes # (A) 1.4 k/uL (1.0-4.8); Lymphocytes % (A) 15 %; MCH 28.8 pg (25.0-35.0); MCHC 32.7 g/dL (31.0-37.0); MCV 87.8 fL (80.0-100.0); Mean Platelet Volume 7.1; Monocytes # (A) 0.5 k/uL (0-1.0); Monocytes % (A) 5 %; Neutrophils # (A) 7.1 k/uL (1.3-7.7); Neutrophils % (A) 75 %; Platelet Count 208 k/uL (150-450); RBC 4.63 m/uL (4.30-5.90); RDW 13.4 % (11.5-15.5); WBC 9.4 k/uL (3.8-10.6)
[2024-08-17 07:52] LABS: African American GFR (CKD) >90 (>60 ml/min/1.73 sqM); Anion Gap 11 mmol/L; Blood Urea Nitrogen 19 mg/dL (9-20); Calcium 8.8 mg/dL (8.4-10.2); Carbon Dioxide 22 mmol/L (22-30); Chloride 100 mmol/L (98-107); Glucose 115 mg/dL (74-99); Non-African American GFR(CKD) >90 (>60 ml/min/1.73 sqM); Sodium 133 mmol/L (137-145)
[2024-08-17 07:53] LABS: Magnesium 2.4 mg/dL (1.6-2.3)
[2024-08-17 08:34] VITALS: BP 101/46; PULSE 51; RESP 16; TEMP 97.9
--- NOTE | 2024-08-17 09:34 | P.PN ---
Subjective Progress Note Date: 08/17/24 History of present illness: This is a 68-year-old male with past medical history of dyslipidemia, diabetes, remote history of tobacco use and dependence, paroxysmal atrial fibrillation. We have been asked to evaluate the patient for atrial flutter with RVR. 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 He states that he thought he was in atrial fibrillation his heart rate was going 150 then dropping down to 70. He also has shortness of breath especially with exertion. He states his blood pressures at home dropped down to the 70s systolic. He states he feels weak wit h any movements. He states this been going on for the past 3 to 4 months. Patient has been started on Cardizem drip. Patient did not go in and out of SVT during evaluation. Valsalva maneuver caused patient to convert to sinus rhythm. Currently his heart rate is 89, blood pressure 121/95, pulse ox 96% on room air. -EKG: SVT at 150 bpm -Chest x-ray: No acute findings. -Laboratory studies: WBC 10.8, hemoglobin 16.1. D-dimer 0.21. CO2 18, BUN 26 creatinine 0.86, potassium 4. Troponin negative x 1. proBNP 281. TSH 1.08. -Home cardiac medications: -Echocardiogram performed 05/13/2020: EF 50 to 55%, mild concentric left ventricular hypertrophy, mild MR and mild TR. Mild pulmonary hypertension. 08/12 Patient seen and examined on the cardiac stepdown unit. Cardizem drip is on hold. Beta-maritza is on hold. Patient is scheduled for EP study and possible ablation on . Blood pressure 121/65, heart rate 65, pulse ox 96% on room air. Patient is currently in sinus rhythm. Echocardiogram reveals technically difficult study. Normal LV size and systolic function. Mild mitral and tricuspid regurgitation. No pericardial effusion. No pulmonary hypertension. 08/13 Patient seen and examined. He is scheduled for EP study and possible ablation on . He remains on a Cardizem drip which will be continued until tomorrow morning at 11 AM. Telemetry is a sinus rhythm with ectopy. Patient denies chest pain or shortness of breath. No lightheadedness or dizziness. Bet a-maritza remains on hold. 08/14 Seen and examined. He is scheduled for EP study and possible ablation today. Patient has been maintained in a sinus rhythm. He has been on Cardizem drip to be discontinued this morning. He has not received any beta-blockers. Blood pressure 142/62, heart rate 65, pulse ox 95% on room air. Repeat blood work reveals hemoglobin 14.8, BUN 9 and creatinine 0.61. 08/15 Yesterday, patient underwent ablation of the AV carlos reentry and tachycardia. Patient states he is feeling fine this morning but he is noted to have significant coughing. He was not coughing yesterday. We have asked attending to address the cough and patient was tested came back positive for RSV. Heart rate 80, blood pressure 147/66, pulse ox 96% on room air. Patient is in a sinus rhythm. He is noted to have occasional blocked PAC. 08/16 Patient seen and examined. He is in isolation for RSV. He has been started on IV antibiotics, cough medicine. He had a change in his rhythm with tachycardia with a wenckeback block. Patient denies palpitations. No lightheadedness or dizziness. No chest pain. Other than continued cough, he is feeling well. 08/17 Patient remains in isolation for RSV. He continues to have cough. Blood pressure 101/46, heart rate 42-51, pulse ox 97% on 2 L nasal cannula. CBC is normal. Sodium 133, potassium 4, BUN 19 creatinine 0.75, magnesium 2.4. Tel emetry reviewed, patient is having slow AT, PACs provoking block, no indication for pacemaker but continue to monitor patient closely on telemetry. Patient states that he is feeling great and would like to go home. Patient states he is able to ambulate with no dizziness or lightheadedness. Physical examination: Gen: This is a 76-year-old male in no acute distress VS: reviewed HEENT: Head is atraumatic, normocephalic. Pupils equal, round. Sclerae is anicteric. NECK: Supple. No JVD. LUNGS: Clear to auscultation. No wheezes or rhonchi. No intercostal retractions. HEART: Regular rate and rhythm. Systolic murmur. ABDOMEN: Soft No tenderness. EXTREMITIES: No pedal edema. No calf tenderness. NEUROLOGICAL: Patient is awake, alert and oriented x3. Assessment: Recurrent SVT, incessant despite medical treatment status post ablation for SVT and for atrial flutter Hypertension History of atrial flutter in the setting of PE in 2019 Dyslipidemia Diabetes mellitus History of tobacco use and dependence History of pulmonary embolism 2019 Episodes of slow atrial tachycardia with episodes of slow wenckeback block Episodes of wenckeback block in sinus rhythm RSV Plan: Continue patient's home cardiac medications Discontinue beta-maritza and omega-3 at discharge Continue current cardiac medications and continue telemetry monitoring Continue current treatment for RSV Patient to get up and ambulate aggressively while in his room. If he has no symptoms while ambulating, he is cleared for discharge from Dr. Stuart and will follow-up in the office in 1 week Nurse practitioner note has been reviewed, I agree with documented findings and plan of care. Patient was seen and examined. Objective - Vital Signs Vital signs: Vital Signs Temp 97.9 F 08/17/24 08:33 Pulse 51 L 08/17/24 08:33 Resp 16 08/17/24 08:33 BP 101/46 08/17/24 08:33 Pulse Ox 97 08/17/24 08:33 FiO2 Intake & Output 08/16/24 08/17/24 08/17/24 18:59 06:59 18:59 Intake Total 678 Balance 678 Intake: IV 20 Invasive Line 1 10 Invasive Line 2 10 Oral 658 Other: Voiding Method Toilet Toilet # Voids 2 2 # Bowel Movements 1 - Labs CBC & Chem 7: 08/17/24 07:15 08/17/24 07:15 Labs: Abnormal Lab Results - Last 24 Hours (Table) 08/16/24 08/16/24 08/16/24 Range/Units 06:12 11:26 16:37 Sodium (137-145) mmol/L Glucose (74-99) mg/dL POC Glucose (mg/dL) 171 H 143 H (70-110) mg/dL Magnesium (1.6-2.3) mg/dL Procalcitonin 5.27 H (0.02-0.50) ng/mL 08/16/24 08/17/24 08/17/24 Range/Units 20:04 05:58 07:15 Sodium 133 L (137-145) mmol/L Glucose 115 H (74-99) mg/dL POC Glucose (mg/dL) 243 H 112 H (70-110) mg/dL Magnesium 2.4 H (1.6-2.3) mg/dL Procalcitonin (0.02-0.50) ng/mL
--- NOTE | 2024-08-17 10:34 | P.DS ---
Providers Date of admission: 08/11/24 05:17 Expected date of discharge: 08/17/24 Attending physician: Kaylie Schmid MD Consults: 08/11/24 05:16 Consult Physician Routine Consulting Provider: Iiss Benito Consult Reason/Comments: Atrial flutter with RVR Do you want consulting provider notified?: Yes Primary care physician: Stated None Hospital Course: Discharge Diagnosis: Recurrent SVT Frequent PACs AV block History of atrial flutter History of DVT/PE RSV Acute hypoxic respiratory failure Suspected underlying bacterial pneumonia Type 2 diabetes Diarrhea Hypertension Dyslipidemia Hospital Course: 68-year-old male with a past medical history of atrial fibrillation on anticoagulation with Eliquis, SVT, hypertension, hyperlipidemia, previous DVT and PE, and insulin-dependent diabetes mellitus. He presented to the emergency department with a chief complaint of palpitations and shortness of breath. Patient reports the symptoms began last night and progressively worsened. He reports symptoms similar to previous episodes of A-fib RVR but reports typically resolves on its own and this time was persistent. He reports significant worsening shortness of breath with any exertion and even has to stop and take a break with walking to the restroom. He denies having any fevers, chills, dizziness, lightheadedness, changes in vision or hearing, chest pain, pa lpitations, cough or congestion, nausea, vomiting, or experiencing any numbness/tingling/weakness/swelling in his extremities. Upon arrival to our facility, patient underwent evaluation in the emergency department. Vital signs upon arrival show blood pressure 120/76, heart rate 83, respiratory rate 97.4 F, and SpO2 of 99% on room air. EKG completed showing atrial fibrillation at 150 bpm with an incomplete right bundle branch block. Chest x-ray completed negative for acute cardiopulmonary process. Labs completed and reviewed. CBC showing mild leukocytosis with WBC count of 10.8 otherwise normal findings. Coagulation profile normal findings. D-dimer negative at 0.21. BMP showing hypocarbia with bicarb of 18 and mild prerenal azotemia with BUN of 26. Blood glucose 248. Magnesium 1.9. Liver profile unremarkable. Troponin was 0.019 with proBNP of 281. TSH 1.080. Patient was started on Cardizem infusion and admitted under our services with consultation to cardiology. Patient had an EP study, had an ablation. Beta-blockers discontinued. Echocardiogram showed normal LV size and systolic function. Patient also developed upper respiratory symptoms, positive for RSV. Procalcitonin elevated, chest x-ray findings consistent with left basilar pneumonia, possibly bacterial. Patient also treated with IV antibiotics. He will complete his course of oral antibiotics, and outpatient follow-up with cardiology. Patient seen and examined at bedside. Vital signs reviewed and stable. General: Nontoxic, no distress, appears at stated age Derm: Warm, dry Head: Atraumatic, normocephalic, symmetric Eyes: EOMI, no lid lag, anicteric sclera Mouth: No lip lesion, mucus membranes moist Cardiovascular: S1S2 reg, no murmur Lungs: CTA bilateral, no rhonchi, no rales, no accessory muscle use Abdominal: Soft, nontender to palpation, no guarding, no appreciable organomegaly Ext: No gross muscle atrophy, no edema, no contractures Neuro: CN II-XI grossly intact, no focal neuro deficits Psych: Alert, oriented, appropriate affect A total of 32 minutes of time were spent preparing this complex discharge summary. Patient was discharged on 08/17/2024 at 953. Patient Condition at Discharge: Stable Plan - Discharge Summary Discharge Rx Participant: Yes New Discharge Prescriptions: New Cefdinir 300 mg PO Q12HR #4 cap Continue Atorvastatin [Lipitor] 20 mg PO DAILY Apixaban [Eliquis] 5 mg PO BID #70 tab Insulin Glargine,Hum.rec.anlog [Lantus Solostar Pen] 10 unit SQ HS #4 pen Semaglutide [Rybelsus] 14 mg PO DAILY Cetirizine HCl [Zyrtec] 10 mg PO DAILY Psyllium Husk [Fiber Capsule] 0.4 gm PO DAILY Cholecalciferol (Vitamin D3) [Vitamin D3 (50 Mcg = 2000 Iu)] 50 mcg PO DAILY Empagliflozin [Jardiance] 25 mg PO DAILY metFORMIN HCL [Glucophage] 1,000 mg PO BID Vitamin B Complex 1 cap PO DAILY Mv-Min/Folic/K1/Lycopen/Lutein [Centrum Silver Men Tablet] 1 tab PO DAILY Discontinued Metoprolol Succinate (ER) [Toprol Xl] 25 mg PO DAILY [place]-3/Dha/Epa/Fish Oil [Fish Oil 1,000 mg Softgel] 1 cap PO DAILY Discharge Medication List Atorvastatin [Lipitor] 20 mg PO DAILY 05/12/20 [History] Apixaban [Eliquis] 5 mg PO BID #70 tab 05/13/20 [Rx] Insulin Glargine,Hum.rec.anlog [Lantus Solostar Pen] 10 unit SQ HS #4 pen 06/05/20 [Rx] Cetirizine HCl [Zyrtec] 10 mg PO DAILY 08/11/24 [History] Cholecalciferol (Vitamin D3) [Vitamin D3 (50 Mcg = 2000 Iu)] 50 mcg PO DAILY 08/11/24 [History] Empagliflozin [Jardiance] 25 mg PO DAILY 08/11/24 [History] Mv-Min/Folic/K1/Lycopen/Lutein [Centrum Silver Men Tablet] 1 tab PO DAILY 08/11/24 [History] Psyllium Husk [Fiber Capsule] 0.4 gm PO DAILY 08/11/24 [History] Semaglutide [Rybelsus] 14 mg PO DAILY 08/11/24 [History] Vitamin B Complex 1 cap PO DAILY 08/11/24 [History] metFORMIN HCL [Glucophage] 1,000 mg PO BID 08/11/24 [History] Cefdinir 300 mg PO Q12HR #4 cap 08/17/24 [Rx] Follow up Appointment(s)/Referral(s): Lorenzo Stuart MD [STAFF PHYSICIAN] - 1 Week (Office is closed. Please call to schedule follow up appointment) Michael Nation MD [STAFF PHYSICIAN] - 1 Week (Primary Care physician -Office is closed. Please call Sunday to schedule appointment) Patient Instructions/Handouts: Respiratory Syncytial Virus (DC), Bradycardia (DC) Activity/Diet/Wound Care/Special Instructions: Please see PCP and cardiology. Discharge Disposition: HOME SELF-CARE
--- NOTE | 2024-08-17 10:36 | P.PN ---
Progress Note - Text Summary Incessant AV carlos reentrant tachycardia upon admission Baseline NC interval at 200 ms, baseline AV node Wenckebach block in the awake state was 440 ms prior to ablation Successful ablation of the slow pathway and the tachycardia was rendered noninducible RF ablation anterior to the coronary sinus, about 2.1 cm away from the AV node/fast pathway area Past history of atrial flutter Upon retesting, after successful SVT ablation, atrial flutter with RVR was induced very easily RF ablation for typical atrial flutter. Using intracardiac echo a fairly lateral line was made to stay away from the coronary sinus os Successful atrial flutter ablation Very frequent PACs prior to successful atrial flutter ablation Significant reduction in PAC burden post atrial flutter ablation noted Normal heart rates with slow atrial tachycardia on the twelve-lead EKG on without AV block AV carlos blocking drugs discontinued on 15 August Patient developed RSV infection with increased PAC burden and slow atrial tachycardia, atrial cycle length of about 530 with AV block heart rates in the 30s Plan No AV carlos blocking drugs needed at this time Patient may go home from a cardiac standpoint as long as he is not dizzy or lightheaded Will see him again next week Will assess with a Holter monitor once again anode twelve-lead EKG next week Most likely edema in the take cavotricuspid isthmus area and the slow pathway area contributing to worsening AV node function in association with frequent PACs and slow atrial tachycardia which provoke for functional AV block
== END 2024-08-17 12:34 | disposition home or self-care (01) | DRG 273 ==
LOC: EC 03:38 → 3SCARD 05:17
PROVIDERS: ADMIT Internal Medicine; ATTEND Internal Medicine
PROC: 02583ZZ Destruction of Conduction Mechanism, Percutaneous Approach (ICD-10-PCS; principal; 2024-08-14 14:30)
PROC: B24BZZZ Ultrasonography of Heart with Aorta (ICD-10-PCS; principal; 2024-08-14 14:30)
DX: I47.10 Supraventricular tachycardia, unspecified (principal); J15.9 Unspecified bacterial pneumonia; J96.01 Acute respiratory failure with hypoxia; I27.20 Pulmonary hypertension, unspecified; I48.19 Other persistent atrial fibrillation; E11.9 Type 2 diabetes mellitus without complications; I10 Essential (primary) hypertension; B97.4 Respiratory syncytial virus as the cause of diseases classified elsewhere; I48.3 Typical atrial flutter; I49.1 Atrial premature depolarization; E78.5 Hyperlipidemia, unspecified; F17.200 Nicotine dependence, unspecified, uncomplicated; I44.1 Atrioventricular block, second degree; I45.10 Unspecified right bundle-branch block; Z79.01 Long term (current) use of anticoagulants; Z79.4 Long term (current) use of insulin; Z79.84 Long term (current) use of oral hypoglycemic drugs; Z79.899 Other long term (current) drug therapy; Z86.711 Personal history of pulmonary embolism; Z86.718 Personal history of other venous thrombosis and embolism
CPT/HCPCS: 36415; 71045; 71046; 80048; 80053; 83735; 83880; 84145; 84443; 84484; 85025; 85027; 85379; 85610; 85730; 86850; 86900; 86901; 87045; 87046; 87324; 87636; 93005; 93306; 93623; 93653; 93655; 96365; 96366; 99291